=== PATIENT | female | born 1965 | race Caucasian/White ===

== ENCOUNTER 2016-12-02 17:09 | Inpatient (IN) | payer MEDICARE, OTHER ==
[2016-12-02 18:22] LABS: Appearance,Urine Clear (Clear); Bilirubin,Urine Negative (Negative); Glucose,Urine (UA) Negative (Negative); Ketones,Urine Negative (Negative); Leukocyte Esterase,Urine Negative (Negative); Nitrite,Urine Negative (Negative); Protein,Urine Negative (Negative); UA Billing (MACRO vs. MICRO) CHEM; Urobilinogen,Urine <2.0 mg/dL (<2.0)
[2016-12-02 18:57] LABS: Basophils % (A) 1 %; CH 32.7; CHCM 34.1; Eosinophils # (A) 0.1 k/uL (0-0.7); Eosinophils % (A) 2 %; HCT 39.1 % (34.0-46.0); HDW 2.56; HGB 13.1 gm/dL (11.4-16.0); Luc # (Auto) 0.12; Luc % (Auto) 2; Lymphocytes # (A) 3.4 k/uL (1.0-4.8); Lymphocytes % (A) 51 %; MCH 32.3 pg (25.0-35.0); MCHC 33.6 g/dL (31.0-37.0); MCV 96.3 fL (80.0-100.0); Mean Platelet Volume 7.8; Monocytes # (A) 0.4 k/uL (0-1.0); Monocytes % (A) 5 %; Neutrophils # (A) 2.7 k/uL (1.3-7.7); Neutrophils % (A) 40 %; RBC 4.07 m/uL (3.80-5.40); WBC 6.7 k/uL (3.8-10.6); WBC (Perox) 7.09
[2016-12-02 19:10] LABS: ALT 21 U/L (9-52); AST 18 U/L (14-36); Alkaline Phosphatase 79 U/L (38-126); Anion Gap 12 mmol/L; Blood Urea Nitrogen 14 mg/dL (7-17); Calcium 9.2 mg/dL (8.4-10.2); Carbon Dioxide 27 mmol/L (22-30); Chloride 102 mmol/L (98-107); Glucose 76 mg/dL (74-99); Magnesium 1.6 mg/dL (1.6-2.3); Non-African American GFR(MDRD) >60 (>60 ml/min/1.73 sqM); Phosphorous 3.9 mg/dL (2.5-4.5); Potassium 4.2 mmol/L (3.5-5.1); Sodium 141 mmol/L (137-145); Total Bilirubin 0.6 mg/dL (0.2-1.3); Total Protein 6.8 g/dL (6.3-8.2)
[2016-12-02 19:12] LABS: Manual Review Performed; Reactive Lymphocytes Present
[2016-12-02 19:25] LABS: INR 1.1 (<1.1); Partial Thromboplastin Time 23.4 sec (22.0-30.0); Prothrombin Time 10.7 sec (9.0-12.0)
--- NOTE | 2016-12-02 21:23 | ED ---
General Adult HPI - General Chief complaint: Extremity Problem,Nontraumatic Stated complaint: lower extremity numbness Time Seen by Provider: 12/02/16 17:47 Source: patient Mode of arrival: EMS Limitations: physical limitation - History of Present Illness Initial comments: This 51-year-old white female presents with a complaint of having some lower extremity numbness. This apparently initially started 2 days ago. She states that her legs feel very heavy, or painful, and she could not feel them well. She describes it as a numbness and tingling type of sensation. She has a complicated previous neurologic history. She initially was diagnosed with some Parkinson's disease by one neurologist. She then [facility] [place] and saw another neurologist in they apparently were weaning her off of her Parkinson's medication. They performed an MRI scan of her brain and cervical spine this past month. They did notice some myelomalacia and stenosis at C3 and C4. She is then followed up with Dr. Whitten from neurosurgery at [facility] and may need further surgery on her neck. She is scheduled for an MRI scan of her thoracic and lumbar spine. She denies any other complaints or modifying factors. His been no fevers or chills. There's been no recent infections. She normally is able to walk with a walker. She is currently residing at [facility]. - Related Data Home Medications Medication Instructions Recorded Confirmed Amitriptyline HCl [Elavil] 25 mg PO HS 06/08/14 12/02/16 Famotidine [Pepcid] 20 mg PO BID@0700,1700 06/08/14 12/02/16 Furosemide [Lasix] 20 mg PO QAM 06/08/14 12/02/16 Potassium Chloride [Klor-Con 10] 10 meq PO DAILY@1700 06/08/14 12/02/16 Dicyclomine [Bentyl] 20 mg PO BID@0800,1700 08/26/16 12/02/16 Ensure 1 can PO BID 08/26/16 12/02/16 Furosemide [Lasix] 10 mg PO DAILY@1400 08/26/16 12/02/16 Acetaminophen [Tylenol] 650 mg PO Q4H PRN 12/02/16 12/02/16 Amantadine HCl [Symmetrel] 100 mg PO TID 12/02/16 12/02/16 Aspirin 81 mg PO DAILY@1700 12/02/16 12/02/16 Bisacodyl 10 mg RECTAL DAILY PRN 12/02/16 12/02/16 Carbidopa-Levodopa 25-250 mg 0.5 tab PO BID@0700,1400 12/02/16 12/02/16 [Sinemet 25-250] Cholecalciferol [Vitamin D3] 1,000 unit PO DAILY@1700 12/02/16 12/02/16 Cyclobenzaprine [Flexeril] 10 mg PO TID 12/02/16 12/02/16 Divalproex Sodium [Depakote] 500 mg PO TID 12/02/16 12/02/16 HYDROcodone/APAP 5-325MG [[place] 1 tab PO Q4HR PRN 12/02/16 12/02/16 5-325] LORazepam [Ativan] 0.5 mg PO QID PRN 12/02/16 12/02/16 Loperamide HCl [Imodium A-D] 2 mg PO QID PRN MDD 4 TABS 12/02/16 12/02/16 Magnesium Hydroxide [Milk of 2,400 mg PO DAILY PRN 12/02/16 12/02/16 Magnesia] Na Phos,M-B/Na Phos,Di-Ba [Fleet 133 ml RECTAL ONCE PRN 12/02/16 12/02/16 Adult] Propranolol [Inderal] 20 mg PO DAILY 12/02/16 12/02/16 Zinc Oxide 20% Oint 1 applic TOPICAL BID 12/02/16 12/02/16 rOPINIRole HCL [Requip] 1 mg PO TID 12/02/16 12/02/16 Allergies Allergy/AdvReac Type Severity Reaction Status Date / Time cephalexin monohydrate Allergy Intermediate mouth Verified 12/02/16 17:33 [From Keflex] breaks out in sores Cephalosporins Allergy Intermediate mouth Verified 08/30/16 14:35 breaks out in sores codeine Allergy Intermediate Rash/Hives Verified 12/02/16 17:33 prednisone Allergy Intermediate Rash/Hives Verified 08/30/16 14:35 acetaminophen [From Tylenol] AdvReac Intermediate Rash/Hives Verified 08/30/16 14:35 Review of Systems ROS Statement: Those systems with pertinent positive or pertinent negative responses have been documented in the HPI. ROS Other: All systems not noted in ROS Statement are negative. 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 Past Anesthesia/Blood Transfusion Reactions: No Reported Reaction Past Psychological History: No Psychological Hx Reported Smoking Status: Former smoker Past Alcohol Use History: None Reported Past Drug Use History: None Reported - Past Family History Father Additional Family Medical History / Comment(s): pt adopted does not know of family hx General Exam - General Exam Comments Initial Comments: GENERAL: The patient is well nourished and well hydrated. VITAL SIGNS: Heart rate, blood pressure, respiratory rate reviewed as recorded in nurse's notes. EYES: Pupils are round and reactive. Extraocular movements are intact. No conjunctival / lid redness or swelling. ENT: No external evidence of injury, swelling, or ecchymosis. Airway is patent. Throat is clear. NECK: Nontender. No swelling or evidence of injury. No subcutaneous emphysema. Trachea is midline. No thyroid mass. HEART: Regular rate and rhythm. Good peripheral pulses. LUNGS/CHEST: Breath sounds clear and equal bilaterally. No rales, rhonchi, or wheezes. No ecchymosis, subcutaneous emphysema, or tenderness. ABDOMEN: Abdomen soft without tenderness. No palpable masses or organomegaly. No peritoneal signs. No abdominal wall swelling or ecchymosis. EXTREMITIES: No extremity tenderness. Normal muscle tone and function. No thoracolumbar tenderness. NEUROLOGIC: Sensation is decreased to her bilateral lower extremities but she is able to feel sharp sensation. This is resolved on recheck. Cranial nerve exam reveals face is symmetrical, tongue is midline, speech is clear. SKIN: No abrasions or ecchymosis is noted. No induration or masses noted. PSYCHIATRIC: Alert and oriented. Appropriate behavior and judgment. Limitations: physical limitation Course Vital Signs 12/02/16 12/02/16 12/02/16 17:24 19:35 21:23 Temperature 98 F 97.6 F Pulse Rate 72 71 70 Respiratory 18 16 18 Rate Blood Pressure 95/61 109/59 99/64 O2 Sat by Pulse 95 97 97 Oximetry Medical Decision Making - Medical Decision Making The patient is seen and examined. All diagnostics are reviewed. EKG shows a normal sinus rhythm at a rate of 69. There is no acute ST-T wave changes noted. The [place] interval is 142, QRS duration is 82, and the QTc interval is 465. The laboratory analysis was all essentially within normal limits. The patient does present with recent results of diagnostic studies. She had a MRI scan on 11/11/2016. This showed moderate advanced generalized cortical atrophic changes present on the computed tomography scan of the brain. There are numerous patchy areas of high T2 weighted signal which involve supratentorial white matter chair likely a manifestation of chronic small vessel ischemic change. There was no acute intracranial abnormalities. The patient also had a MRI of the cervical spine which showed degenerative changes involving the disks, facets, and alternate processes at multiple levels. Is moderately advanced central canal and bilateral neural foraminal stenosis at C3- C4. There is some subtle intramedullary signal change likely relating to myelomalacia at the C3-C4 level. The patient also had an EEG done on 2016 which does show an abnormal EEG G due to the presence of right frontal spike and slow waves. On recheck, she has had improvement in her lower extremity numbness. The exact cause of her symptomatology is not definitively determine but it is certainly felt as though she potentially could have symptoms related to MS. Other neurologic possibilities certainly are possible as well. Is felt as though she would benefit from admission and further neurologic evaluation. She is agreeable. Case is discussed with internal medicine and they are agreeable for admission. - Lab Data Result diagrams: 12/02/16 18:45 12/02/16 18:45 Lab Results 12/02/16 12/02/16 12/02/16 Range/Units 18:11 18:45 18:45 WBC 6.7 (3.8-10.6) k/uL RBC 4.07 (3.80-5.40) m/uL Hgb 13.1 (11.4-16.0) gm/dL Hct 39.1 (34.0-46.0) % MCV 96.3 (80.0-100.0) fL MCH 32.3 (25.0-35.0) pg MCHC 33.6 (31.0-37.0) g/dL RDW 14.0 (11.5-15.5) % Plt Count 173 (150-450) k/uL Neutrophils % 40 % Lymphocytes % 51 % Monocytes % 5 % Eosinophils % 2 % Basophils % 1 % Neutrophils # 2.7 (1.3-7.7) k/uL Lymphocytes # 3.4 (1.0-4.8) k/uL Monocytes # 0.4 (0-1.0) k/uL Eosinophils # 0.1 (0-0.7) k/uL Basophils # 0.0 (0-0.2) k/uL Manual Slide Review Performed Reactive Lymphocytes Present PT (9.0-12.0) sec INR (<1.1) APTT (22.0-30.0) sec Sodium 141 (137-145) mmol/L Potassium 4.2 (3.5-5.1) mmol/L Chloride 102 (98-107) mmol/L Carbon Dioxide 27 (22-30) mmol/L Anion Gap 12 mmol/L BUN 14 (7-17) mg/dL Creatinine 0.50 L (0.52-1.04) mg/dL Est GFR (MDRD) Af Amer >60 (>60 ml/min/1.73 sqM) Est GFR (MDRD) Non-Af >60 (>60 ml/min/1.73 sqM) Glucose 76 (74-99) mg/dL Calcium 9.2 (8.4-10.2) mg/dL Phosphorus 3.9 (2.5-4.5) mg/dL Magnesium 1.6 (1.6-2.3) mg/dL Total Bilirubin 0.6 (0.2-1.3) mg/dL AST 18 (14-36) U/L ALT 21 (9-52) U/L Alkaline Phosphatase 79 (38-126) U/L Total Protein 6.8 (6.3-8.2) g/dL Albumin 3.5 (3.5-5.0) g/dL TSH 1.900 (0.465-4.680) mIU/L Urine Color Yellow Urine Appearance Clear (Clear) Urine pH 6.0 (5.0-8.0) Ur Specific [place] 1.010 (1.001-1.035) Urine Protein Negative (Negative) Urine Glucose (UA) Negative (Negative) Urine Ketones Negative (Negative) Urine Blood Negative (Negative) Urine Nitrate Negative (Negative) Urine Bilirubin Negative (Negative) Urine Urobilinogen <2.0 (<2.0) mg/dL Ur Leukocyte Esterase Negative (Negative) 12/02/16 Range/Units 18:45 WBC (3.8-10.6) k/uL RBC (3.80-5.40) m/uL Hgb (11.4-16.0) gm/dL Hct (34.0-46.0) % MCV (80.0-100.0) fL MCH (25.0-35.0) pg MCHC (31.0-37.0) g/dL RDW (11.5-15.5) % Plt Count (150-450) k/uL Neutrophils % % Lymphocytes % % Monocytes % % Eosinophils % % Basophils % % Neutrophils # (1.3-7.7) k/uL Lymphocytes # (1.0-4.8) k/uL Monocytes # (0-1.0) k/uL Eosinophils # (0-0.7) k/uL Basophils # (0-0.2) k/uL Manual Slide Review Reactive Lymphocytes PT 10.7 (9.0-12.0) sec INR 1.1 (<1.1) APTT 23.4 (22.0-30.0) sec Sodium (137-145) mmol/L Potassium (3.5-5.1) mmol/L Chloride (98-107) mmol/L Carbon Dioxide (22-30) mmol/L Anion Gap mmol/L BUN (7-17) mg/dL Creatinine (0.52-1.04) mg/dL Est GFR (MDRD) Af Amer (>60 ml/min/1.73 sqM) Est GFR (MDRD) Non-Af (>60 ml/min/1.73 sqM) Glucose (74-99) mg/dL Calcium (8.4-10.2) mg/dL Phosphorus (2.5-4.5) mg/dL Magnesium (1.6-2.3) mg/dL Total Bilirubin (0.2-1.3) mg/dL AST (14-36) U/L ALT (9-52) U/L Alkaline Phosphatase (38-126) U/L Total Protein (6.3-8.2) g/dL Albumin (3.5-5.0) g/dL TSH (0.465-4.680) mIU/L Urine Color Urine Appearance (Clear) Urine pH (5.0-8.0) Ur Specific [place] (1.001-1.035) Urine Protein (Negative) Urine Glucose (UA) (Negative) Urine Ketones (Negative) Urine Blood (Negative) Urine Nitrate (Negative) Urine Bilirubin (Negative) Urine Urobilinogen (<2.0) mg/dL Ur Leukocyte Esterase (Negative) Disposition Clinical Impression: Lower extremity numbness, Leg pain, Myelomalacia of cervical cord, Seizure disorder, Degenerative arthritis of cervical spine, Chronic non-specific white matter lesions on MRI, Small vessel disease, cerebrovascular Disposition: ADMITTED IP TO THIS [facility] Condition: Fair Time of Disposition: 21:41 Decision Date: 12/02/16 Decision Time: 21:41
[2016-12-02] MEDS ORDERED: NALOXONE 0.4 MG/ML 1 ML VIAL IV PRN (22:06)
[2016-12-02] MEDS ORDERED: ONDANSETRON 4 MG/2 ML VIAL IVP PRN (22:06)
[2016-12-02] MEDS ORDERED: IBUPROFEN 400 MG TAB PO PRN (22:06)
[2016-12-02] MEDS ORDERED: LOPERAMIDE 2 MG CAP PO PRN (22:12)
[2016-12-02] MEDS ORDERED: LORazepam 0.5 MG TAB PO PRN (22:12)
[2016-12-02] MEDS ORDERED: NA PHOS,M-B/NA PHOS,DI-BA 133 ML ENEMA RECTAL PRN (22:12)
[2016-12-02] MEDS ORDERED: HYDROcodone/APAP 5-325MG 1 EACH TAB PO PRN (22:12)
[2016-12-02] MEDS ORDERED: MAGNESIUM HYDROXIDE 2,400 MG/10 ML CUP PO PRN (22:12)
[2016-12-02] MEDS ORDERED: BISACODYL 10 MG SUPP RECTAL PRN (22:12)
[2016-12-03 03:56] VITALS: BMI 29.6
[2016-12-03] MEDS ORDERED: FAMOTIDINE 20 MG TAB PO SCH (07:00)
[2016-12-03] MEDS: CARBIDOPA-LEVODOPA 25-250 MG 1 EACH TAB PO SCH ×2 (07:56→14:44)
[2016-12-03] MEDS ORDERED: DICYCLOMINE 20 MG TAB PO SCH (08:00)
[2016-12-03 08:28] VITALS: BP 109/52; PULSE 81; RESP 18; TEMP 98.1
[2016-12-03] MEDS ORDERED: CYCLOBENZAPRINE 10 MG TAB PO SCH (09:00)
[2016-12-03] MEDS ORDERED: ENOXAPARIN 40 MG/0.4 ML SYRINGE SQ SCH (09:00)
[2016-12-03] MEDS ORDERED: ZINC OXIDE 20% OINT 28.4 GM TUBE TOPICAL SCH (09:00)
[2016-12-03] MEDS ORDERED: PROPRANOLOL 20 MG TAB PO SCH (09:00)
[2016-12-03] MEDS ORDERED: DIVALPROEX 500 MG TABLET.DR PO SCH (09:00)
[2016-12-03] MEDS ORDERED: NON-FORMULARY DRUG (Ensure 1 CAN) PO SCH (09:00)
[2016-12-03] MEDS ORDERED: FUROSEMIDE 20 MG TAB PO SCH ×2 (09:00→14:00)
[2016-12-03] MEDS ORDERED: AMANTADINE HCL 100 MG CAP PO SCH (09:00)
--- NOTE | 2016-12-03 11:03 | DS ---
HISTORY AND PHYSICAL/DISCHARGE SUMMARY: DATE OF ADMISSION: 12/02/2016 DATE OF DISCHARGE: Patient is a 51-year-old female who came in with bilateral lower extremity numbness and patient does have significant spinal disease, was extensively evaluated by neurologist in [place] and later saw another neurologist and patient was on parkinsonian medications, which are being tapered down. Patient has some unintentional tremor at this point of time. Patient had myelomalacia and stenosis of C3 and C4 and is being followed by Dr. Ny ) in neurosurgery in [facility] and the patient had MRIs and thoracolumbar spine x-rays in the past. Patient is sent in here because of bilateral lower limb numbness and Neurology was consulted. I also consulted Dr. Cha. I do not believe nothing much can be done and patient will need to go back and follow with her neurologist and patient will be started on Decadron. After evaluation by Neurology and Dr. Love, patient will be discharged today back to subacute rehabilitation center. Patient is from [facility]. Home medications include: 1. Amitriptyline. 2. Famotidine. 3. Lasix 20 mg daily. 4. Potassium chloride. 5. Dicyclomine. 6. Ensure. 7. Amantadine. 8. Bisacodyl. 9. Carbidopa levodopa. 10. Cholecalciferol. 11. Cyclobenzaprine. 12. Divalproex. 13. Hydrocodone/acetaminophen. 14. Lorazepam. 15. Loperamide. 16. Magnesium oxide. 17. Propranolol. 18. Zinc oxide. 19. Ropinirole. ALLERGIES: Allergic to KEFLEX, CEPHALOSPORINS, CODEINE, PREDNISONE and ACETAMINOPHEN. REVIEW OF SYSTEMS: CONSTITUTIONAL: No fever, no malaise, no fatigue. HEENT: No recent visual problems or hearing problems. Denied any sore throat. CARDIOVASCULAR: No chest pain, orthopnea, PND, no palpitations, no syncope. PULMONARY: No shortness of breath, no cough, no hemoptysis. GASTROINTESTINAL: No diarrhea, no nausea, no vomiting, no abdominal pain. Normoactive bowel sounds. NEUROLOGICAL: As described in HPI. HEMATOLOGICAL: Denies any bleeding or petechiae. GENITOURINARY: Denies any burning micturition, frequency, or urgency. MUSCULOSKELETAL/RHEUMATOLOGICAL: Denies any joint pain, swelling, or any muscle pain. ENDOCRINE: Denies any polyuria or polydipsia. The rest of the 14 point review of systems is negative. PAST MEDICAL HISTORY: CVA/TIA, seizure disorder, Parkinson this history is questionable. Patient has myelomalacia of C2-C3 cervical spine. SOCIAL HISTORY: Former smoker. Quit smoking years ago. Denied any alcohol abuse or any drug abuse. FAMILY HISTORY: Patient was adopted and father's and mother's history is unknown. PHYSICAL EXAMINATION: Temperature 98.1, pulse of 81, respiratory rate of 18, blood pressure is 109/52, saturating at 97% on room air. GENERAL: Patient has tremors and unintentional shaking, this is not something new, although patient is alert and oriented x2. NEUROLOGICAL EXAMINATION: There is decreased sensation in bilateral lower extremities. I did not examine any rectal tone, although patient has incontinence which is not new. HEENT: Pupils are round and equally reacting to light. EOMI. No scleral icterus. No conjunctival pallor. Normocephalic, atraumatic. No pharyngeal erythema. No thyromegaly. CARDIOVASCULAR: S1 and S2 present. No murmurs, rubs, or gallops. PULMONARY: Chest is clear to auscultation, no wheezing or crackles. ABDOMEN: Soft, nontender, nondistended, normoactive bowel sounds. No palpable organomegaly. MUSCULOSKELETAL: No joint swelling or deformity. EXTREMITIES: No cyanosis, clubbing, or pedal edema. SKIN: No rashes. LABORATORY DATA: CBC, CMP essentially within normal limits. ASSESSMENT AND PLAN: 1. Bilateral lower extremity numbness, related to lumbar spine disease and thoracic spine disease. Patient is allergic to PREDNISONE apparently. Will try and use Decadron and see how she does today and patient will be discharged later in the day of discharge. Nothing much can be done and patient will need to follow up with the neurosurgeon [facility] and will get Neurology to evaluate the patient. 2. Seizure disorder. 3. Gastroesophageal reflux disease. 4. Depression. 5. Possibility of Parkinson's. 6. Myelomalacia of the cervical spine. For above-mentioned chronic medical problems, will go ahead and continue her home medications. Patient will be discharged today after evaluation by Dr. Cha and neurologist. Patient will resume her previous diet. Activity as tolerated.
[2016-12-03] MEDS ORDERED: DEXAMETHASONE 4 MG TAB PO SCH (12:00)
[2016-12-03] MEDS ORDERED: POTASSIUM CHLORIDE ER 10 MEQ TAB.ER.PRT PO SCH (17:00)
[2016-12-03] MEDS ORDERED: ASPIRIN 81 MG CHEW PO SCH (17:00)
[2016-12-03] MEDS ORDERED: CHOLECALCIFEROL 1,000 UNIT TAB PO SCH (17:00)
[2016-12-03] MEDS ORDERED: AMITRIPTYLINE HCL 25 MG TAB PO SCH (21:00)
== END 2016-12-03 15:05 | DRG 546 ==
LOC: EC 17:09 → 5MS5E 22:06
PROVIDERS: ADMIT Internal Medicine; ATTEND Internal Medicine
DX: M48.8X6 Other specified spondylopathies, lumbar region (principal); G95.89 Other specified diseases of spinal cord; G20 Parkinson's disease; M48.02 Spinal stenosis, cervical region; M50.11 Cervical disc disorder with radiculopathy, high cervical region; G40.909 Epilepsy, unspecified, not intractable, without status epilepticus; R94.01 Abnormal electroencephalogram [EEG]; M47.22 Other spondylosis with radiculopathy, cervical region; M48.8X4 Other specified spondylopathies, thoracic region; R20.0 Anesthesia of skin; K21.9 Gastro-esophageal reflux disease without esophagitis; M79.606 Pain in leg, unspecified; R01.1 Cardiac murmur, unspecified; R32 Unspecified urinary incontinence; I67.9 Cerebrovascular disease, unspecified; F32.9 Major depressive disorder, single episode, unspecified; Z87.891 Personal history of nicotine dependence; Z86.73 Personal history of transient ischemic attack (TIA), and cerebral infarction without residual deficits; Z79.82 Long term (current) use of aspirin; Z87.442 Personal history of urinary calculi; Z90.49 Acquired absence of other specified parts of digestive tract; Z90.710 Acquired absence of both cervix and uterus; Z88.6 Allergy status to analgesic agent; Z88.1 Allergy status to other antibiotic agents; Z88.5 Allergy status to narcotic agent; Z88.8 Allergy status to other drugs, medicaments and biological substances; Z79.891 Long term (current) use of opiate analgesic; Z79.899 Other long term (current) drug therapy; Z86.69 Personal history of other diseases of the nervous system and sense organs
CPT/HCPCS: 36415; 80053; 81003; 83735; 84100; 84443; 85025; 85610; 85730; 93005; 99285

== ENCOUNTER → 2016-12-09 | Outpatient (CLI) | payer MEDICARE, OTHER ==
--- NOTE | 2016-12-09 16:47 | MR ---
EXAMINATION TYPE: MR rain/ni wo/w con DATE OF EXAM: 12/09/2016 4:23 PM COMPARISON: NONE HISTORY: Patient has degenerative disc disease with stenosis of cervical spine. Myelomalacia CONTRAST: Performed utilizing 17 ml mL intravenous MultiHance gadolinium contrast. TECHNIQUE: Multiplanar, multiecho imaging on a 3.0 Sania magnet is performed through the thoracic spi ne. T6-T7: Right paracentral endplate changes are present with mild anterior thecal sac compression. No s darryn canal stenosis present. No cord contact is evident. T5-T6: There is a central disc herniation with mild anterior thecal sac compression. No AP spinal can al stenosis present. No cord contact is evident. T12-L1: There is a broad-based central disc herniation with mild anterior thecal sac compression. No AP spinal canal stenosis present. Neural foramen are patent. Spinal cord maintains normal signal through its visualized course. Vertebral body alignment is normal. Vertebral body heights are preserved. Disc heights are preserved. Disc hydration levels are preserved. No spinal canal stenosis is evident. IMPRESSIONS: 1. Endplate degenerative changes mid thoracic spine without spinal canal stenosis. 2. No myelomalacia is evident. EXAMINATION TYPE: MR rain/ni wo/w con DATE OF EXAM: 12/09/2016 4:23 PM COMPARISON: NONE HISTORY: Patient has degenerative disc disease with stenosis of cervical spine. Myelomalacia CONTRAST: 17 ml mL intravenous MultiHance. TECHNIQUE: Multiplanar, multisequence images of the lumbar spine were acquired. FINDINGS: L5-S1: Tiny central disc bulge is present with anterior thecal sac compression. No AP spinal canal st enosis or neural foraminal stenosis is present. L4-L5: No significant disc bulge or disc herniation. No spinal canal stenosis. No foraminal stenosi s. Mild facet hypertrophy is present with mild left foraminal narrowing.. There is loss of disc heig ht. L3-L4: No significant disc bulge or disc herniation. Degenerative disc changes are present through t his level. No spinal canal stenosis. No foraminal stenosis. . L2-L3: No significant disc bulge or disc herniation. No spinal canal stenosis. No foraminal stenosi s. . L1-L2: No significant disc bulge or disc herniation. No spinal canal stenosis. No foraminal stenosi s. . T12-L1: Minimal anterior thecal sac flattening from endplate spurring is present. There is narrowing of the disc height. No spinal canal stenosis is present. No spinal canal stenosis. No foraminal krystal nosis. . No abnormal enhancement. IMPRESSION: 1. Degenerative disc changes discussed above. Some mild endplate changes within the thoracic spine ar e present. Significant spinal canal stenosis is not identified.
== END | disposition home or self-care (01) ==
LOC: RADMRIMAIN 14:36
PROVIDERS: ATTEND Orthopaedic Surgery
DX: M51.36 Other intervertebral disc degeneration, lumbar region (principal); M50.30 Other cervical disc degeneration, unspecified cervical region; M48.02 Spinal stenosis, cervical region; G95.89 Other specified diseases of spinal cord
CPT/HCPCS: 72157; 72158; A9577

== ENCOUNTER → 2017-12-29 | Outpatient (CLI) | payer MEDICARE, OTHER ==
--- NOTE | 2017-12-29 09:35 | CT ---
EXAMINATION TYPE: CT angio chest DATE OF EXAM: 12/29/2017 COMPARISON: Report of CT thorax from 1998. No images available for comparison. HISTORY: History of PE. Shortness of breath. CT DLP: 384.5 mGycm. Automated Exposure Control for Dose Reduction was Utilized. CONTRAST: CTA scan of the thorax is performed with IV Contrast, patient injected with 80 mL of Isovue 370, pulm onary embolism protocol. MIP Images are created on CT scanner and reviewed. FINDINGS: LUNGS: There is right hemidiaphragm elevation and right basilar subsegmental linear atelectasis. Diff use geographic scattered areas of groundglass opacity are seen throughout the lungs without central o r peripheral predominance and without upper and lower lung zone predominance. The lungs are grossly c lear, there is no concerning parenchymal mass or nodule identified. There is no pleural effusion or pneumothorax seen. The tracheobronchial tree is patent. MEDIASTINUM: There is satisfactory enhancement of the pulmonary artery and its branches, there is no CT evidence for pulmonary embolism. No evidence of pulmonary arterial enlargement as the pulmonary ar meg measures 2.8 cm. Ascending thoracic aorta is also within normal limits measuring 3.3 cm. There a re no greater than 1 cm hilar or mediastinal lymph nodes. No cardiomegaly or pericardial effusion i s seen. OTHER: There is diffuse hypoattenuation of the hepatic parenchyma, most commonly relating to hepatic steatosis. Thyroid gland appears mildly enlarged without discrete nodule. A small hiatal hernia is in cidentally identified. Mild multilevel degenerative changes of the thoracic spine are noted. IMPRESSION: 1. No evidence of pulmonary embolism. 2. Right hemidiaphragm elevation with right basilar subsegmental atelectasis. Sniff test could be per formed if there is concern for diaphragmatic paralysis. 3. Diffuse geographic groundglass opacities throughout the lungs favored to represent multifocal atel ectasis and hypoventilation, however other etiologies such as pneumonitis and fluid overload or possi ble. 4. Findings most compatible with hepatic steatosis.
== END | disposition home or self-care (01) ==
LOC: RADCTMAIN 08:06
PROVIDERS: ATTEND Internal Medicine Sleep Medicine
DX: J98.11 Atelectasis (principal); R91.8 Other nonspecific abnormal finding of lung field; Z86.711 Personal history of pulmonary embolism
CPT/HCPCS: 71275; Q9967

== ENCOUNTER 2018-04-07 14:42 | Inpatient (IN) | payer MEDICARE, OTHER ==
[2018-04-07] MEDS ORDERED: SODIUM CHLORIDE 0.9% 1,000 ML IV ONE (15:02)
[2018-04-07 15:21] LABS: Glucose,Whole Blood 82 mg/dL (75-99)
[2018-04-07 15:24] LABS: Basophils % (A) 0 %; Eosinophils % (A) 1 %; HCT 43.5 % (34.0-46.0); HGB 14.6 gm/dL (11.4-16.0); Lymphocytes # (A) 3.7 k/uL (1.0-4.8); Lymphocytes % (A) 61 %; MCH 31.9 pg (25.0-35.0); MCHC 33.6 g/dL (31.0-37.0); Mean Platelet Volume 7.1; Monocytes # (A) 0.4 k/uL (0-1.0); Monocytes % (A) 6 %; Neutrophils # (A) 1.8 k/uL (1.3-7.7); Neutrophils % (A) 31 %; Platelet Count 166 k/uL (150-450); RBC 4.58 m/uL (3.80-5.40); RDW 14.9 % (11.5-15.5)
[2018-04-07 15:28] LABS: ALT 31 U/L (9-52); AST 53 U/L (14-36); Albumin 3.3 g/dL (3.5-5.0); Alkaline Phosphatase 69 U/L (38-126); Anion Gap 11 mmol/L; Blood Urea Nitrogen 7 mg/dL (7-17); Carbon Dioxide 28 mmol/L (22-30); Chloride 104 mmol/L (98-107); Glucose 78 mg/dL (74-99); Potassium 4.2 mmol/L (3.5-5.1); Sodium 143 mmol/L (137-145); Total Bilirubin 0.2 mg/dL (0.2-1.3); Total Protein 6.2 g/dL (6.3-8.2)
[2018-04-07 15:38] LABS: Creatine Kinase 56 U/L (30-135)
[2018-04-07 15:39] LABS: Partial Thromboplastin Time 30.4 sec (22.0-30.0); Prothrombin Time 52.5 sec (9.0-12.0)
[2018-04-07 15:41] LABS: INR 5.8 (<1.2)
[2018-04-07 15:42] LABS: Amphetamine Screen,Urine Not Detected (NotDetected); Barbiturate Screen,Urine Not Detected (NotDetected); Benzodiazepines Screen,Urine Detected (NotDetected); Cocaine Screen,Urine Not Detected (NotDetected); Methadone Screen, Urine Not Detected (NotDetected); Opiate Screen,Urine Detected (NotDetected); Oxycodone Screen, Urine Not Detected (NotDetected); Phencyclidine Screen,Urine Not Detected (NotDetected); Tricyclic Antidepressant,Urine Detected (NotDetected); Urn Cannabinoid Scrn Not Detected (NotDetected)
[2018-04-07 15:45] LABS: Polychromasia Present
[2018-04-07 15:49] LABS: Amorphous Sediment,Urine Occasional /hpf; Appearance,Urine Cloudy (Clear); Bacteria,Urine Many /hpf; Bilirubin,Urine Negative (Negative); Blood,Urine Large (Negative); Color,Urine Yellow; Glucose,Urine (UA) Negative (Negative); Hyaline Casts,Urine 41 /lpf (0-2); Ketones,Urine Trace (Negative); Leukocyte Esterase,Urine Large (Negative); Mucus,Urine Moderate /hpf; Nitrite,Urine Negative (Negative); PH, Urine 6.5 (5.0-8.0); Protein,Urine 1+ (Negative); RBC,Urine >182 /hpf (0-5); Specific Gravity,Urine 1.016 (1.001-1.035); WBC,Urine >182 /hpf (0-5)
[2018-04-07 15:51] LABS: Creatine Kinase MB 0.3 ng/mL (0.0-2.4); Troponin I <0.012 ng/mL (0.000-0.034)
--- NOTE | 2018-04-07 15:59 | ED ---
Altered Mental Status HPI - General Chief Complaint: Altered Mental Status Stated Complaint: Altered Mental Status Time Seen by Provider: 04/07/18 14:44 Source: EMS Mode of arrival: EMS Limitations: altered mental status, physical limitation - History of Present Illness Initial Comments: [age] years O female comes from local shelter with the confusion, they noticed that she had altered mental status, she does have a history of Parkinson 's. She herself denies any headaches no chest pain no shortness of breath no abdominal pain no frequency urgency dysuri. She has a history of firm CVA - Related Data Home Medications Medication Instructions Recorded Confirmed Dicyclomine [Bentyl] 20 mg PO Q6H PRN 08/26/16 04/07/18 Acetaminophen [Tylenol] 650 mg PO Q4H PRN 12/02/16 04/07/18 Bisacodyl 10 mg RECTAL DAILY PRN 12/02/16 04/07/18 Carbidopa-Levodopa 25-250 mg 0.5 tab PO TID 12/02/16 04/07/18 [Sinemet 25-250] Cyclobenzaprine [Flexeril] 10 mg PO BID PRN 12/02/16 04/07/18 HYDROcodone/APAP 5-325MG [[place] 1 tab PO Q4HR PRN 12/02/16 04/07/18 5-325] ALPRAZolam [Xanax] 0.25 mg PO TID PRN 04/07/18 04/07/18 Magnesium Hydroxide [Milk of 400 mg PO DAILY PRN 04/07/18 04/07/18 Magnesia] Menthol [Nice Cough Drops] 1 tab PO Q4H PRN 04/07/18 04/07/18 Na Phos,M-B/Na Phos,Di-Ba [Fleet 133 ml RECTAL ONCE PRN 04/07/18 04/07/18 Adult] Warfarin [Coumadin] 1 mg PO TUTHSA 04/07/18 04/07/18 Warfarin [Coumadin] 3 mg PO SUMOWEFR 04/07/18 04/07/18 diphenhydrAMINE [Benadryl] 25 mg PO HS PRN 04/07/18 04/07/18 Allergies Allergy/AdvReac Type Severity Reaction Status Date / Time cephalexin monohydrate Allergy Intermediate mouth Verified 04/07/18 15:18 [From Keflex] breaks out in sores Cephalosporins Allergy Intermediate mouth Verified 04/07/18 15:18 breaks out in sores codeine Allergy Intermediate Rash/Hives Verified 04/07/18 15:18 prednisone Allergy Intermediate Rash/Hives Verified 04/07/18 15:18 acetaminophen [From Tylenol] AdvReac Intermediate Rash/Hives Verified 04/07/18 15:18 Review of Systems ROS Statement: Those systems with pertinent positive or pertinent negative responses have been documented in the HPI. ROS Other: All systems not noted in ROS Statement are negative. 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 Past Anesthesia/Blood Transfusion Reactions: No Reported Reaction Past Psychological History: No Psychological Hx Reported Smoking Status: Former smoker Past Alcohol Use History: None Reported Past Drug Use History: None Reported - Past Family History Father Additional Family Medical History / Comment(s): pt adopted does not know of family hx General Exam - General Exam Comments Initial Comments: General: The patient is awake , she is moving her head looking towards the right arm this is her chronic position of the neck, GCS is 15 she is able to follow the commands Skin: Skin is warm and dry and no rashes or lesions are noted. Eye: Pupils are equal, round and reactive to light, extra-ocular movements are intact; there is normal conjunctiva bilaterally. Ears, nose, mouth and throat: There are moist mucous membranes and no oral lesions. Neck: The neck is supple, there is no tenderness . Cardiovascular: There is a regular rate and rhythm. No murmur, rub or gallop is appreciated. Respiratory: To auscultation bilateral, decreased breath sounds globally poor respiratory effort Gastrointestinal: Soft, non-distended, non-tender abdomen without masses or organomegaly noted. There is no rebound or guarding present. Bowel sounds are unremarkable. Back: There is no tenderness to palpation in the midline. There is no obvious deformity. Musculoskeletal: Normal ROM, no tenderness, There is no pedal edema. There is no calf tenderness or swelling. No cords were appreciated. Neurological: CN II-XII intact, Cranial nerves III through XII are intact. She is moving her upper or lower extremities appropriately Psychiatric: Cooperative, seems depressed and anxious Limitations: altered mental status, physical limitation Course Vital Signs 04/07/18 04/07/18 14:47 17:00 Temperature 97.9 F Pulse Rate 57 L 57 L Respiratory 18 18 Rate Blood Pressure 114/55 123/90 O2 Sat by Pulse 94 L 96 Oximetry EKG is a sinus bradycardia ventricular rate is 57 IN interval is 144 QRS duration is 86 QT/QTc is 442/4:30 degree of this EKG does not reveal any ST elevation or ST depression Further assessment revealed head CT normal INR is 5.8 to hold the Coumadin CBC is normal His metabolic panel is normal urinalysis confirms UTI and a chest x- ray confirms pneumonia she be treated with broad-spectrum antibiotic should be admitted to Dr. Gallagher's service Medical Decision Making - Lab Data Result diagrams: 04/07/18 14:52 04/07/18 14:52 Lab Results 04/07/18 04/07/18 04/07/18 Range/Units 14:52 14:52 14:52 WBC 6.0 (3.8-10.6) k/uL RBC 4.58 (3.80-5.40) m/uL Hgb 14.6 (11.4-16.0) gm/dL Hct 43.5 (34.0-46.0) % MCV 95.0 (80.0-100.0) fL MCH 31.9 (25.0-35.0) pg MCHC 33.6 (31.0-37.0) g/dL RDW 14.9 (11.5-15.5) % Plt Count 166 (150-450) k/uL Neutrophils % 31 % Lymphocytes % 61 % Monocytes % 6 % Eosinophils % 1 % Basophils % 0 % Neutrophils # 1.8 (1.3-7.7) k/uL Lymphocytes # 3.7 (1.0-4.8) k/uL Monocytes # 0.4 (0-1.0) k/uL Eosinophils # 0.0 (0-0.7) k/uL Basophils # 0.0 (0-0.2) k/uL Polychromasia Present PT (9.0-12.0) sec INR (<1.2) APTT (22.0-30.0) sec Sodium 143 (137-145) mmol/L Potassium 4.2 (3.5-5.1) mmol/L Chloride 104 (98-107) mmol/L Carbon Dioxide 28 (22-30) mmol/L Anion Gap 11 mmol/L BUN 7 (7-17) mg/dL Creatinine 0.60 (0.52-1.04) mg/dL Est GFR (CKD-EPI)AfAm >90 (>60 ml/min/1.73 sqM) Est GFR (CKD-EPI)NonAf >90 (>60 ml/min/1.73 sqM) Glucose 78 (74-99) mg/dL POC Glucose (mg/dL) (75-99) mg/dL POC Glu Service Center Supervisor ID Plasma Lactic Acid Tato (0.7-2.0) mmol/L Calcium 9.0 (8.4-10.2) mg/dL Total Bilirubin 0.2 (0.2-1.3) mg/dL AST 53 H (14-36) U/L ALT 31 (9-52) U/L Alkaline Phosphatase 69 (38-126) U/L Total Creatine Kinase 56 (30-135) U/L CK-MB (CK-2) 0.3 (0.0-2.4) ng/mL CK-MB (CK-2) Rel Index 0.5 Troponin I <0.012 (0.000-0.034) ng/mL Total Protein 6.2 L (6.3-8.2) g/dL Albumin 3.3 L (3.5-5.0) g/dL Urine Color Urine Appearance (Clear) Urine pH (5.0-8.0) Ur Specific [place] (1.001-1.035) Urine Protein (Negative) Urine Glucose (UA) (Negative) Urine Ketones (Negative) Urine Blood (Negative) Urine Nitrite (Negative) Urine Bilirubin (Negative) Urine Urobilinogen (<2.0) mg/dL Ur Leukocyte Esterase (Negative) Urine RBC (0-5) /hpf Urine WBC (0-5) /hpf Urine WBC Clumps (None) /hpf Amorphous Sediment (None) /hpf Urine Bacteria (None) /hpf Hyaline Casts (0-2) /lpf Urine Mucus (None) /hpf Urine Opiates Screen (NotDetected) Ur Oxycodone Screen (NotDetected) Urine Methadone Screen (NotDetected) Ur Propoxyphene Screen (NotDetected) Ur Barbiturates Screen (NotDetected) U Tricyclic Antidepress (NotDetected) Ur Phencyclidine Scrn (NotDetected) Ur Amphetamines Screen (NotDetected) U Methamphetamines Scrn (NotDetected) U Benzodiazepines Scrn (NotDetected) Urine Cocaine Screen (NotDetected) U Marijuana (THC) Screen (NotDetected) 04/07/18 04/07/18 04/07/18 Range/Units 14:52 14:52 14:52 WBC (3.8-10.6) k/uL RBC (3.80-5.40) m/uL Hgb (11.4-16.0) gm/dL Hct (34.0-46.0) % MCV (80.0-100.0) fL MCH (25.0-35.0) pg MCHC (31.0-37.0) g/dL RDW (11.5-15.5) % Plt Count (150-450) k/uL Neutrophils % % Lymphocytes % % Monocytes % % Eosinophils % % Basophils % % Neutrophils # (1.3-7.7) k/uL Lymphocytes # (1.0-4.8) k/uL Monocytes # (0-1.0) k/uL Eosinophils # (0-0.7) k/uL Basophils # (0-0.2) k/uL Polychromasia PT 52.5 H (9.0-12.0) sec INR 5.8 H* (<1.2) APTT 30.4 H (22.0-30.0) sec Sodium (137-145) mmol/L Potassium (3.5-5.1) mmol/L Chloride (98-107) mmol/L Carbon Dioxide (22-30) mmol/L Anion Gap mmol/L BUN (7-17) mg/dL Creatinine (0.52-1.04) mg/dL Est GFR (CKD-EPI)AfAm (>60 ml/min/1.73 sqM) Est GFR (CKD-EPI)NonAf (>60 ml/min/1.73 sqM) Glucose (74-99) mg/dL POC Glucose (mg/dL) (75-99) mg/dL POC Glu Service [facility] Supervisor ID Plasma Lactic Acid [place] 1.1 (0.7-2.0) mmol/L Calcium (8.4-10.2) mg/dL Total Bilirubin (0.2-1.3) mg/dL AST (14-36) U/L ALT (9-52) U/L Alkaline Phosphatase (38-126) U/L Total Creatine Kinase (30-135) U/L CK-MB (CK-2) (0.0-2.4) ng/mL CK-MB (CK-2) Rel Index Troponin I (0.000-0.034) ng/mL Total Protein (6.3-8.2) g/dL Albumin (3.5-5.0) g/dL Urine Color Urine Appearance (Clear) Urine pH (5.0-8.0) Ur Specific [place] (1.001-1.035) Urine Protein (Negative) Urine Glucose (UA) (Negative) Urine Ketones (Negative) Urine Blood (Negative) Urine Nitrite (Negative) Urine Bilirubin (Negative) Urine Urobilinogen (<2.0) mg/dL Ur Leukocyte Esterase (Negative) Urine RBC (0-5) /hpf Urine WBC (0-5) /hpf Urine WBC Clumps (None) /hpf Amorphous Sediment (None) /hpf Urine Bacteria (None) /hpf Hyaline Casts (0-2) /lpf Urine Mucus (None) /hpf Urine Opiates Screen Detected H (NotDetected) Ur Oxycodone Screen Not Detected (NotDetected) Urine Methadone Screen Not Detected (NotDetected) Ur Propoxyphene Screen Not Detected (NotDetected) Ur Barbiturates Screen Not Detected (NotDetected) U Tricyclic Antidepress Detected H (NotDetected) Ur Phencyclidine Scrn Not Detected (NotDetected) Ur Amphetamines Screen Not Detected (NotDetected) U Methamphetamines Scrn Not Detected (NotDetected) U Benzodiazepines Scrn Detected H (NotDetected) Urine Cocaine Screen Not Detected (NotDetected) U Marijuana (THC) Screen Not Detected (NotDetected) 04/07/18 04/07/18 Range/Units 15:16 15:19 WBC (3.8-10.6) k/uL RBC (3.80-5.40) m/uL Hgb (11.4-16.0) gm/dL Hct (34.0-46.0) % MCV (80.0-100.0) fL MCH (25.0-35.0) pg MCHC (31.0-37.0) g/dL RDW (11.5-15.5) % Plt Count (150-450) k/uL Neutrophils % % Lymphocytes % % Monocytes % % Eosinophils % % Basophils % % Neutrophils # (1.3-7.7) k/uL Lymphocytes # (1.0-4.8) k/uL Monocytes # (0-1.0) k/uL Eosinophils # (0-0.7) k/uL Basophils # (0-0.2) k/uL Polychromasia PT (9.0-12.0) sec INR (<1.2) APTT (22.0-30.0) sec Sodium (137-145) mmol/L Potassium (3.5-5.1) mmol/L Chloride (98-107) mmol/L Carbon Dioxide (22-30) mmol/L Anion Gap mmol/L BUN (7-17) mg/dL Creatinine (0.52-1.04) mg/dL Est GFR (CKD-EPI)AfAm (>60 ml/min/1.73 sqM) Est GFR (CKD-EPI)NonAf (>60 ml/min/1.73 sqM) Glucose (74-99) mg/dL POC Glucose (mg/dL) 82 (75-99) mg/dL POC Glu Service Center Supervisor ID [facility], Mel[place] Plasma Lactic Acid [place]ato (0.7-2.0) mmol/L Calcium (8.4-10.2) mg/dL Total Bilirubin (0.2-1.3) mg/dL AST (14-36) U/L ALT (9-52) U/L Alkaline Phosphatase (38-126) U/L Total Creatine Kinase (30-135) U/L CK-MB (CK-2) (0.0-2.4) ng/mL CK-MB (CK-2) Rel Index Troponin I (0.000-0.034) ng/mL Total Protein (6.3-8.2) g/dL Albumin (3.5-5.0) g/dL Urine Color Yellow Urine Appearance Cloudy H (Clear) Urine pH 6.5 (5.0-8.0) Ur Specific [place] 1.016 (1.001-1.035) Urine Protein 1+ H (Negative) Urine Glucose (UA) Negative (Negative) Urine Ketones Trace H (Negative) Urine Blood Large H (Negative) Urine Nitrite Negative (Negative) Urine Bilirubin Negative (Negative) Urine Urobilinogen 2.0 (<2.0) mg/dL Ur Leukocyte Esterase Large H (Negative) Urine RBC >182 H (0-5) /hpf Urine WBC >182 H (0-5) /hpf Urine WBC Clumps Many H (None) /hpf Amorphous Sediment Occasional H (None) /hpf Urine Bacteria Many H (None) /hpf Hyaline Casts 41 H (0-2) /lpf Urine Mucus Moderate H (None) /hpf Urine Opiates Screen (NotDetected) Ur Oxycodone Screen (NotDetected) Urine Methadone Screen (NotDetected) Ur Propoxyphene Screen (NotDetected) Ur Barbiturates Screen (NotDetected) U Tricyclic Antidepress (NotDetected) Ur Phencyclidine Scrn (NotDetected) Ur Amphetamines Screen (NotDetected) U Methamphetamines Scrn (NotDetected) U Benzodiazepines Scrn (NotDetected) Urine Cocaine Screen (NotDetected) U Marijuana (THC) Screen (NotDetected) Disposition Clinical Impression: Altered mental status, UTI (urinary tract infection), Elevated INR, Pneumonia Disposition: ADMITTED IP TO THIS [facility] Condition: Good Referrals: Kris Stanley DO [Primary Care Provider] - 1-2 days
--- NOTE | 2018-04-07 16:08 | CT ---
EXAMINATION TYPE: CT brain wo con DATE OF EXAM: 04/07/2018 COMPARISON: 08/26/2016 HISTORY: Altered mental status. CT DLP: [address] of the brain was performed. The ventricles, basal cisterns and sulci overlying the cerebral convexities demonstrate at least mode rate enlargement. There is no evidence for intracranial hemorrhage or sulcal effacement. There is decreased attenuation about the periventricular white matter and deep white matter of both c erebral hemispheres, compatible with chronic small vessel ischemia. Differential diagnosis does inclu de demyelination. No mass effects are seen.No midline shift. Osseous calvarium is intact. If symptoms persist consider MRI. IMPRESSION: 1. Age related atrophic and chronic small vessel ischemic change without acute intracranial process s een at this time.
[2018-04-07] MEDS ORDERED: LEVOFLOXACIN 750MG-D5W PMX 750 MG in DEXTROSE/WATER 1 150ML.BAG IVPB STA (16:10)
--- NOTE | 2018-04-07 16:21 | XR ---
EXAMINATION TYPE: XR chest 2V DATE OF EXAM: 04/07/2018 COMPARISON: 08/26/2016 HISTORY: Shortness of breath TECHNIQUE: Frontal and lateral views of the chest are obtained. FINDINGS: Scattered senescent parenchymal changes noted. Hyperinflation compatible with COPD. Patchy left perihilar and right basilar opacity may reflect underlying infiltrate and/or atelectasis. Follow-up until resolution recommended Heart size is stable. Mediastinal structures are stable and grossly unremarkable. No evidence for hilar prominence. Degenerative changes dorsal spine. IMPRESSION: 1. Patchy left perihilar and right basilar opacity may reflect underlying infiltrate and/or atelectas is. Follow-up until resolution recommended
[2018-04-07] MEDS ORDERED: ONDANSETRON 4 MG/2 ML VIAL IVP PRN (18:09)
[2018-04-07] MEDS ORDERED: NALOXONE 0.4 MG/ML 1 ML VIAL IV PRN (18:09)
[2018-04-07] MEDS ORDERED: HYDROcodone/APAP 5-325MG 1 EACH TAB PO PRN (18:13)
[2018-04-07] MEDS ORDERED: BISACODYL 10 MG SUPP RECTAL PRN (18:13)
[2018-04-07] MEDS ORDERED: MAGNESIUM HYDROXIDE 2,400 MG/10 ML CUP PO PRN (18:13)
[2018-04-07] MEDS ORDERED: NA PHOS,M-B/NA PHOS,DI-BA 133 ML ENEMA RECTAL PRN (18:13)
[2018-04-07] MEDS ORDERED: diphenhydrAMINE 25 MG CAP PO PRN (18:13)
[2018-04-07] MEDS ORDERED: DICYCLOMINE 20 MG TAB PO PRN (18:13)
[2018-04-07] MEDS ORDERED: ALPRAZolam 0.25 MG TAB PO PRN (18:13)
[2018-04-07] MEDS: CARBIDOPA-LEVODOPA 25-250 MG 1 EACH TAB PO SCH (21:39)
[2018-04-08] MEDS ORDERED: CYCLOBENZAPRINE 10 MG TAB ONE (00:51)
[2018-04-08 01:17] LABS: Glucose,Whole Blood 102 mg/dL (75-99)
[2018-04-08 06:23] LABS: Glucose,Whole Blood 83 mg/dL (75-99)
[2018-04-08 08:31] LABS: Prothrombin Time 45.5 sec (9.0-12.0)
[2018-04-08] MEDS: CARBIDOPA-LEVODOPA 25-250 MG 1 EACH TAB PO SCH ×3 (08:31→21:25)
[2018-04-08 08:36] LABS: HCT 41.6 % (34.0-46.0); HGB 13.7 gm/dL (11.4-16.0); MCH 32.1 pg (25.0-35.0); MCHC 32.8 g/dL (31.0-37.0); MCV 97.7 fL (80.0-100.0); Mean Platelet Volume 7.3; Platelet Count 177 k/uL (150-450); RBC 4.26 m/uL (3.80-5.40); RDW 14.7 % (11.5-15.5)
[2018-04-08 08:38] LABS: ALT 35 U/L (9-52); AST 39 U/L (14-36); Alkaline Phosphatase 61 U/L (38-126); Anion Gap 11 mmol/L; Blood Urea Nitrogen 7 mg/dL (7-17); Calcium 8.9 mg/dL (8.4-10.2); Carbon Dioxide 25 mmol/L (22-30); Chloride 107 mmol/L (98-107); Glucose 77 mg/dL (74-99); Potassium 3.9 mmol/L (3.5-5.1); Sodium 143 mmol/L (137-145); Total Bilirubin 0.3 mg/dL (0.2-1.3); Total Protein 5.8 g/dL (6.3-8.2)
[2018-04-08 09:20] LABS: Monocytes # (M) 0.37 k/uL (0-1.0); Neutrophils # (M) 1.33 k/uL (1.3-7.7); Neutrophils % (M) 25 %; Nucleated Red Blood Cells 1 /100 WBC (0-0); Total Cells Counted 100; Toxic Vacuolation Present; WBC 5.3 k/uL (3.8-10.6)
[2018-04-08 09:21] LABS: Polychromasia Present
[2018-04-08 12:34] LABS: Glucose,Whole Blood 96 mg/dL (75-99)
--- NOTE | 2018-04-08 14:53 | P.HPIM ---
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 Patient otherwise denied any chest pain or shortness of breath. No cough or sputum production denied any dysuria or hematuria. No fever or chills noted. No nausea vomiting or abdominal pain. Patient was sent to Hospital for further evaluation. Patient is currently bedridden at [facility]. CT head showed age-related atrophy and chronic small ischemic changes without acute intracranial process seen at this time. Chest x-ray showed patchy left perihilar and right basilar obesity may reflect underlying infiltrate/atelectasis follow-up until resolution was recommended INR 5.8 Urinalysis showed cloudy with large leukocyte esterase and WBC greater than 182 and RBC greater than 182 Review of Systems Constitutional: Patient denies any fever or chills . Generalized weakness Abdomen: Patient denied nausea vomiting and diarrhea and abdominal pain. Cardiovascular: Patient denies any chest pain or short of breath no palpitations. Respiratory: patient denied any cough is from production. No shortness of breath Neurologic: Patient denied any numbness or tingling headache. Confusion Musculoskeletal: Patient denies any complaints of joint swelling or deformity. Skin: Negative Psychiatric: Denied Endocrine: No heat or cold intolerance. No recent weight gain. Genitourinary: No dysuria or hematuria. 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 Past Anesthesia/Blood Transfusion Reactions: No Reported Reaction Past Psychological History: No Psychological Hx Reported Smoking Status: Former smoker Past Alcohol Use History: None Reported Past Drug Use History: None Reported - Past Family History Father Additional Family Medical History / Comment(s): pt adopted does not know of family hx Medications and Allergies Home Medications Medication Instructions Recorded Confirmed Type Dicyclomine [Bentyl] 20 mg PO Q6H PRN 08/26/16 04/07/18 History Acetaminophen [Tylenol] 650 mg PO Q4H PRN 12/02/16 04/07/18 History Bisacodyl 10 mg RECTAL DAILY PRN 12/02/16 04/07/18 History Carbidopa-Levodopa 25-250 mg 0.5 tab PO TID 12/02/16 04/07/18 History [Sinemet 25-250] Cyclobenzaprine [Flexeril] 10 mg PO BID PRN 12/02/16 04/07/18 History HYDROcodone/APAP 5-325MG [[place] 1 tab PO Q4HR PRN 12/02/16 04/07/18 History 5-325] ALPRAZolam [Xanax] 0.25 mg PO TID PRN 04/07/18 04/07/18 History Magnesium Hydroxide [Milk of 400 mg PO DAILY PRN 04/07/18 04/07/18 History Magnesia] Menthol [Nice Cough Drops] 1 tab PO Q4H PRN 04/07/18 04/07/18 History Na Phos,M-B/Na Phos,Di-Ba [Fleet 133 ml RECTAL ONCE PRN 04/07/18 04/07/18 History Adult] Warfarin [Coumadin] 1 mg PO TUTHSA 04/07/18 04/07/18 History Warfarin [Coumadin] 3 mg PO SUMOWEFR 04/07/18 04/07/18 History diphenhydrAMINE [Benadryl] 25 mg PO HS PRN 04/07/18 04/07/18 History Allergies Allergy/AdvReac Type Severity Reaction Status Date / Time cephalexin monohydrate Allergy Intermediate mouth Verified 04/07/18 15:18 [From Keflex] breaks out in sores Cephalosporins Allergy Intermediate mouth Verified 04/07/18 15:18 breaks out in sores codeine Allergy Intermediate Rash/Hives Verified 04/07/18 15:18 prednisone Allergy Intermediate Rash/Hives Verified 04/07/18 15:18 acetaminophen [From Tylenol] AdvReac Intermediate Rash/Hives Verified 04/07/18 15:18 Physical Exam Vitals: Vital Signs Temp Pulse Pulse Resp BP BP Pulse Ox 04/08/18 11:08 97.0 F L 04/08/18 08:50 16 04/08/18 06:30 97.3 F L 60 16 120/67 93 L 04/07/18 22:35 97.1 F L 57 L 16 130/71 92 L 04/07/18 20:30 58 L 04/07/18 20:00 97.0 F L 54 L 16 123/76 97 04/07/18 19:20 98.3 F 62 18 102/58 98 04/07/18 17:00 57 L 18 123/90 96 04/07/18 14:47 97.9 F 57 L 18 114/55 94 L Intake and Output 04/07/18 04/08/18 04/08/18 22:59 06:59 14:59 Other: Voiding Method Bedpan Incontinent # Voids 1 2 2 # Bowel Movements 0 PHYSICAL EXAMINATION: Patient is lying in the bed comfortably, no acute distress, awake alert and oriented 2.. Morbidly obesity. HEENT: Normocephalic. Neck is supple. Pupils reactive. Nostrils clear. Oral cavity is moist. Ears reveal no drainage. Neck reveals no JVD, carotid bruits, or thyromegaly. CHEST EXAMINATION: Trachea is central. Symmetrical expansion. Bibasilar diminished air entry. Lung daniel clear to auscultation and percussion. CARDIAC: Normal S1, S2 with no gallops. Systolic murmur ABDOMEN: Soft. Bowel sounds normal. No organomegaly. No abdominal bruits. Extremities: reveal no edema. No clubbing or cyanosis Neurologically awake, alert, oriented x2-3 . Patient is bedridden and right- sided weakness. Skin: No rash or skin lesions. Psychiatric: Coperative. Could not be assessed completely Musculoskeletal: No joint swelling or deformity. Normal range of motion. Results CBC & Chem 7: 04/08/18 08:13 04/08/18 08:13 Labs: Abnormal Lab Results - Last 24 Hours (Table) 04/07/18 04/07/18 04/07/18 Range/Units 14:52 14:52 14:52 Nucleated RBCs (0-0) /100 WBC PT 52.5 H (9.0-12.0) sec INR 5.8 H* (<1.2) APTT 30.4 H (22.0-30.0) sec POC Glucose (mg/dL) (75-99) mg/dL AST 53 H (14-36) U/L Total Protein 6.2 L (6.3-8.2) g/dL Albumin 3.3 L (3.5-5.0) g/dL Urine Appearance (Clear) Urine Protein (Negative) Urine Ketones (Negative) Urine Blood (Negative) Ur Leukocyte Esterase (Negative) Urine RBC (0-5) /hpf Urine WBC (0-5) /hpf Urine WBC Clumps (None) /hpf Amorphous Sediment (None) /hpf Urine Bacteria (None) /hpf Hyaline Casts (0-2) /lpf Urine Mucus (None) /hpf Urine Opiates Screen Detected H (NotDetected) U Tricyclic Antidepress Detected H (NotDetected) U Benzodiazepines Scrn Detected H (NotDetected) 04/07/18 04/08/18 04/08/18 Range/Units 15:16 00:22 08:13 Nucleated RBCs 1 H (0-0) /100 WBC PT (9.0-12.0) sec INR (<1.2) APTT (22.0-30.0) sec POC Glucose (mg/dL) 102 H (75-99) mg/dL AST (14-36) U/L Total Protein (6.3-8.2) g/dL Albumin (3.5-5.0) g/dL Urine Appearance Cloudy H (Clear) Urine Protein 1+ H (Negative) Urine Ketones Trace H (Negative) Urine Blood Large H (Negative) Ur Leukocyte Esterase Large H (Negative) Urine RBC >182 H (0-5) /hpf Urine WBC >182 H (0-5) /hpf Urine WBC Clumps Many H (None) /hpf Amorphous Sediment Occasional H (None) /hpf Urine Bacteria Many H (None) /hpf Hyaline Casts 41 H (0-2) /lpf Urine Mucus Moderate H (None) /hpf Urine Opiates Screen (NotDetected) U Tricyclic Antidepress (NotDetected) U Benzodiazepines Scrn (NotDetected) 04/08/18 04/08/18 Range/Units 08:13 08:13 Nucleated RBCs (0-0) /100 WBC PT 45.5 H (9.0-12.0) sec INR 5.0 H* (<1.2) APTT (22.0-30.0) sec POC Glucose (mg/dL) (75-99) mg/dL AST 39 H (14-36) U/L Total Protein 5.8 L (6.3-8.2) g/dL Albumin 3.0 L (3.5-5.0) g/dL Urine Appearance (Clear) Urine Protein (Negative) Urine Ketones (Negative) Urine Blood (Negative) Ur Leukocyte Esterase (Negative) Urine RBC (0-5) /hpf Urine WBC (0-5) /hpf Urine WBC Clumps (None) /hpf Amorphous Sediment (None) /hpf Urine Bacteria (None) /hpf Hyaline Casts (0-2) /lpf Urine Mucus (None) /hpf Urine Opiates Screen (NotDetected) U Tricyclic Antidepress (NotDetected) U Benzodiazepines Scrn (NotDetected) Microbiology - Last 24 Hours (Table) 04/07/18 15:16 Urine Culture - Preliminary Urine,Catheterized Thrombosis Risk Factor Assmnt - Choose All That Apply Any of the Below Risk Factors Present?: No Assessment and Plan Assessment: Altered mental status. Possible metabolic encephalopathy with infection Acute urinary tract infection Parkinson's disease History of CVA with right-sided weakness. On Coumadin for stroke prophylaxis Supratherapeutic INR level Seizure disorder Previous history of smoking Medical debility currently bedridden Plan: Patient was given IV fluids in the ER. Continue with antibiotics in the form of levofloxacin. Follow-up urine culture report. Continue to hold Coumadin until INR is between 2 and 3. Continue with home medications and follow closely. Pain management and further recommendations based on the clinical course. Prognosis is guarded. Time with Patient: Greater than 30
[2018-04-08] MEDS ORDERED: LEVOFLOXACIN 500MG-D5W PMX 500 MG in DEXTROSE/WATER 1 100ML.BAG IVPB SCH (16:00)
[2018-04-08] MEDS: LEVOFLOXACIN 500 MG TAB PO SCH (16:24)
[2018-04-08 17:23] LABS: Glucose,Whole Blood 109 mg/dL (75-99)
[2018-04-08] MEDS: DIVALPROEX 500 MG TABLET.DR PO SCH ×2 (18:06→21:25)
[2018-04-08] MEDS: CYCLOBENZAPRINE 10 MG TAB PO PRN (18:25)
[2018-04-08] MEDS ORDERED: LORazepam 2 MG/ML INJ IV ONE (18:40)
[2018-04-08] MEDS: ATORVASTATIN 40 MG TAB PO SCH (21:25)
[2018-04-08] MEDS: AMITRIPTYLINE HCL 25 MG TAB PO SCH (21:25)
[2018-04-08] MEDS: FAMOTIDINE 20 MG TAB PO SCH (21:25)
[2018-04-09 00:13] LABS: Glucose,Whole Blood 124 mg/dL (75-99)
[2018-04-09 05:58] LABS: Glucose,Whole Blood 143 mg/dL (75-99)
[2018-04-09] MEDS: PROPRANOLOL 20 MG TAB PO SCH (08:15)
[2018-04-09] MEDS: CARBIDOPA-LEVODOPA 25-250 MG 1 EACH TAB PO SCH ×2 (08:15→15:36)
[2018-04-09] MEDS: DIVALPROEX 500 MG TABLET.DR PO SCH ×3 (08:15→21:07)
[2018-04-09] MEDS: FAMOTIDINE 20 MG TAB PO SCH ×2 (08:15→21:07)
--- NOTE | 2018-04-09 08:45 | XR ---
EXAMINATION TYPE: XR chest 1V DATE OF EXAM: 04/09/2018 CLINICAL HISTORY: Difficulty breathing progress study. TECHNIQUE: Single AP portable frontal view of the chest is obtained. COMPARISON: Chest x-ray from 2 days earlier. CTA chest December 29, 2017. FINDINGS: There is persistent elevated right hemidiaphragm with right basilar opacity. Left lung rem ains clear. No new suspicious focal airspace opacity, pleural effusion, or pneumothorax is seen bilat erally. Cardiac silhouette size is stable and upper limits of normal. Osseous structures are intact. IMPRESSION: Overall stable findings, elevated right hemidiaphragm with right basilar scarring and/o r atelectasis. No new suspicious focal infiltrate is seen.
[2018-04-09 11:47] LABS: INR 2.6 (<1.2); Prothrombin Time 23.2 sec (9.0-12.0)
[2018-04-09] MEDS: HYDROcodone/APAP 5-325MG 1 EACH TAB PO PRN ×2 (12:21→18:32)
[2018-04-09] MEDS: CYCLOBENZAPRINE 10 MG TAB PO PRN ×2 (12:34→18:48)
[2018-04-09] MEDS: LEVOFLOXACIN 500 MG TAB PO SCH (16:40)
--- NOTE | 2018-04-09 19:39 | P.CNNES ---
History of Present Illness Consult date: 04/09/18 History of Present Illness: The patient is a 53-year-old woman with Parkinson's disease who resides in a [facility]. She was [facility] from [facility] with altered mental status. Neurology is requested to see the patient regarding dyskinesias. The patient states that she's had the dyskinesias for quite some time. She was diagnosed with Parkinson's in 2011. She is not a good historian but according to the record she's been on Sinemet 25/250 half a tablet 3 times a day. The patient also has a history of seizures but has not had a seizure in 20 years. She is on Depakote. 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 Past Anesthesia/Blood Transfusion Reactions: No Reported Reaction Past Psychological History: No Psychological Hx Reported Smoking Status: Former smoker Past Alcohol Use History: None Reported Past Drug Use History: None Reported - Past Family History Father Additional Family Medical History / Comment(s): pt adopted does not know of family hx Medications and Allergies Home Medications Medication Instructions Recorded Confirmed Type Dicyclomine [Bentyl] 20 mg PO Q6H PRN 08/26/16 04/07/18 History Acetaminophen [Tylenol] 650 mg PO Q4H PRN 12/02/16 04/07/18 History Bisacodyl 10 mg RECTAL DAILY PRN 12/02/16 04/07/18 History Carbidopa-Levodopa 25-250 mg 0.5 tab PO TID 12/02/16 04/07/18 History [Sinemet 25-250] Cyclobenzaprine [Flexeril] 10 mg PO BID PRN 12/02/16 04/07/18 History HYDROcodone/APAP 5-325MG [[place] 1 tab PO Q4HR PRN 12/02/16 04/07/18 History 5-325] ALPRAZolam [Xanax] 0.25 mg PO TID PRN 04/07/18 04/07/18 History Magnesium Hydroxide [Milk of 400 mg PO DAILY PRN 04/07/18 04/07/18 History Magnesia] Menthol [Nice Cough Drops] 1 tab PO Q4H PRN 04/07/18 04/07/18 History Na Phos,M-B/Na Phos,Di-Ba [Fleet 133 ml RECTAL ONCE PRN 04/07/18 04/07/18 History Adult] Warfarin [Coumadin] 1 mg PO TUTHSA 04/07/18 04/07/18 History Warfarin [Coumadin] 3 mg PO SUMOWEFR 04/07/18 04/07/18 History diphenhydrAMINE [Benadryl] 25 mg PO HS PRN 04/07/18 04/07/18 History Amitriptyline HCl [Elavil] 25 mg PO HS 04/08/18 04/08/18 History Atorvastatin [Lipitor] 40 mg PO HS 04/08/18 04/08/18 History Divalproex [Depakote] 500 mg PO TID 04/08/18 04/08/18 History Famotidine [Pepcid] 20 mg PO BID 04/08/18 04/08/18 History Propranolol [Inderal] 20 mg PO DAILY 04/08/18 04/08/18 History Allergies Allergy/AdvReac Type Severity Reaction Status Date / Time cephalexin monohydrate Allergy Intermediate mouth Verified 04/07/18 15:18 [From Keflex] breaks out in sores Cephalosporins Allergy Intermediate mouth Verified 04/07/18 15:18 breaks out in sores codeine Allergy Intermediate Rash/Hives Verified 04/07/18 15:18 prednisone Allergy Intermediate Rash/Hives Verified 04/07/18 15:18 acetaminophen [From Tylenol] AdvReac Intermediate Rash/Hives Verified 04/07/18 15:18 Physical Examination - Vital Signs Vital Signs: Vital Signs Temp Pulse Resp BP Pulse Ox 04/09/18 16:00 16 04/09/18 15:00 98.2 F 58 L 16 106/58 90 L 04/09/18 08:00 16 04/09/18 05:45 97.5 F L 65 16 123/78 95 04/08/18 23:00 97.5 F L 67 16 116/71 93 L Intake and Output 04/09/18 04/09/18 04/09/18 06:59 14:59 22:59 Other: Voiding Method Bedpan Bedpan Bedpan Incontinent Incontinent Incontinent # Voids 2 2 - Constitutional General appearance: disheveled - EENT EENT: PERRL - Respiratory Respiratory: lungs clear - Cardiovascular Cardiovascular: regular rate - Neurologic Mental status: The patient was able to answer simple questions. She was oriented to the year. She thought the month was December. She is able to tell where she was. She knew she lived in a [facility]ci but could not name it. Asymptomatic Cranial nerves II through XII: Pupils were 3 mm equal and reactive. There is no obvious facial asymmetry. Motor examination: She was able to move all 4 extremities. Results - Laboratory Findings CBC and BMP: 04/08/18 08:13 04/08/18 08:13 Abnormal Lab Findings: Abnormal Labs 04/07/18 04/07/18 04/07/18 14:52 14:52 14:52 Nucleated RBCs PT 52.5 H INR 5.8 H* APTT 30.4 H POC Glucose (mg/dL) AST 53 H Total Protein 6.2 L Albumin 3.3 L Urine Appearance Urine Protein Urine Ketones Urine Blood Ur Leukocyte Esterase Urine RBC Urine WBC Urine WBC Clumps Amorphous Sediment Urine Bacteria Hyaline Casts Urine Mucus Urine Opiates Screen Detected H U Tricyclic Antidepress Detected H U Benzodiazepines Scrn Detected H 04/07/18 04/08/18 04/08/18 15:16 00:22 08:13 Nucleated RBCs 1 H PT INR APTT POC Glucose (mg/dL) 102 H AST Total Protein Albumin Urine Appearance Cloudy H Urine Protein 1+ H Urine Ketones Trace H Urine Blood Large H Ur Leukocyte Esterase Large H Urine RBC >182 H Urine WBC >182 H Urine WBC Clumps Many H Amorphous Sediment Occasional H Urine Bacteria Many H Hyaline Casts 41 H Urine Mucus Moderate H Urine Opiates Screen U Tricyclic Antidepress U Benzodiazepines Scrn 04/08/18 04/08/18 04/08/18 08:13 08:13 17:16 Nucleated RBCs PT 45.5 H INR 5.0 H* APTT POC Glucose (mg/dL) 109 H AST 39 H Total Protein 5.8 L Albumin 3.0 L Urine Appearance Urine Protein Urine Ketones Urine Blood Ur Leukocyte Esterase Urine RBC Urine WBC Urine WBC Clumps Amorphous Sediment Urine Bacteria Hyaline Casts Urine Mucus Urine Opiates Screen U Tricyclic Antidepress U Benzodiazepines Scrn 04/09/18 04/09/18 04/09/18 00:10 05:46 11:18 Nucleated RBCs PT 23.2 H INR 2.6 H APTT POC Glucose (mg/dL) 124 H 143 H AST Total Protein Albumin Urine Appearance Urine Protein Urine Ketones Urine Blood Ur Leukocyte Esterase Urine RBC Urine WBC Urine WBC Clumps Amorphous Sediment Urine Bacteria Hyaline Casts Urine Mucus Urine Opiates Screen U Tricyclic Antidepress U Benzodiazepines Scrn Assessment and Plan (1) Altered mental status Current Visit: Yes Status: Acute SNOMED Code(s): 847290414 (2) UTI (urinary tract infection) Current Visit: Yes Status: Acute SNOMED Code(s): 40465399 (3) Dyskinesia due to Parkinson's disease Current Visit: Yes Status: Acute Code(s): G24.9 - DYSTONIA, UNSPECIFIED; G20 - PARKINSON'S DISEASE SNOMED Code(s): 32985077 (4) Dyskinesia, subacute, due to drugs Current Visit: Yes Status: Acute SNOMED Code(s): 791848160 Plan: The patient is a 53-year-old woman with Parkinson's disease. She is having a some change in mental status and was admitted with UTI. Apparently her dyskinesias have been more pronounced recently. Recommend tapering dose of Sinemet area to patient had a CT of the brain which did not show any acute findings.
[2018-04-09] MEDS: ATORVASTATIN 40 MG TAB PO SCH (21:07)
[2018-04-09] MEDS: AMITRIPTYLINE HCL 25 MG TAB PO SCH (21:07)
--- NOTE | 2018-04-09 23:02 | P.PN ---
Subjective Progress Note Date: 04/09/18 Principal diagnosis: Altered mental status and acute urinary tract infection Patient is a 53-year-old female with a known history of Parkinson's disease, CVA in 2011 with right-sided weakness and seizure disorder was sent to Hospital from intermediate with complaints of confusion and altered mental status. Patient otherwise denied any chest pain or shortness of breath. No cough or sputum production denied any dysuria or hematuria. No fever or chills noted. No nausea vomiting or abdominal pain. Patient was sent to Hospital for further evaluation. Patient is currently bedridden at intermediate. CT head showed age-related atrophy and chronic small ischemic changes without acute intracranial process seen at this time. Chest x-ray showed patchy left perihilar and right basilar obesity may reflect underlying infiltrate/atelectasis follow-up until resolution was recommended INR 5.8 Urinalysis showed cloudy with large leukocyte esterase and WBC greater than 182 and RBC greater than 182 04/09/2018 Patient does have dyskinetic chronic movements last night which is resolved now. Patient is being treated with antibiotics and urine culture showed gram- negative bacilli. Neurology recommended gradual taper of Sinemet. Otherwise no fever no chills. Denied any complaints of chest pain or short episode. No nausea vomiting or abdominal pain. Tolerating oral diet Chest x-ray showed stable findings. No infiltrate noted. Current medications reviewed and. Objective - Vital Signs Vital signs: Vital Signs Temp 98.2 F 04/09/18 15:00 Pulse 58 L 04/09/18 15:00 Resp 16 04/09/18 16:00 BP 106/58 04/09/18 15:00 Pulse Ox 90 L 04/09/18 15:00 Intake & Output 04/09/18 04/09/18 04/10/18 06:59 18:59 06:59 Other: Voiding Method Bedpan Bedpan Incontinent Incontinent # Voids 2 2 - Exam PHYSICAL EXAMINATION: Patient is lying in the bed comfortably, no acute distress, awake alert and oriented 2.. Morbidly obesity. HEENT: Normocephalic. Neck is supple. Pupils reactive. Nostrils clear. Oral cavity is moist. Ears reveal no drainage. Neck reveals no JVD, carotid bruits, or thyromegaly. CHEST EXAMINATION: Trachea is central. Symmetrical expansion. Bibasilar diminished air entry. Lung daniel clear to auscultation and percussion. CARDIAC: Normal S1, S2 with no gallops. Systolic murmur ABDOMEN: Soft. Bowel sounds normal. No organomegaly. No abdominal bruits. Extremities: reveal no edema. No clubbing or cyanosis Neurologically awake, alert, oriented x2-3 . Patient is bedridden and right- sided weakness. Skin: No rash or skin lesions. Psychiatric: Coperative. Could not be assessed completely Musculoskeletal: No joint swelling or deformity. Normal range of motion. - Labs CBC & Chem 7: 04/08/18 08:13 04/08/18 08:13 Labs: Abnormal Lab Results - Last 24 Hours (Table) 04/09/18 04/09/18 04/09/18 Range/Units 00:10 05:46 11:18 PT 23.2 H (9.0-12.0) sec INR 2.6 H (<1.2) POC Glucose (mg/dL) 124 H 143 H (75-99) mg/dL Microbiology - Last 24 Hours (Table) 04/07/18 15:16 Urine Culture - Final Urine,Catheterized Proteus mirabilis 04/07/18 14:52 Blood Culture - Preliminary Blood No Growth after 48 hours Assessment and Plan Assessment: Altered mental status. Possible metabolic encephalopathy with infection Acute urinary tract infection. Gram-negative bacilli. Final culture report pending. Parkinson's disease History of CVA with right-sided weakness. On Coumadin for stroke prophylaxis Supratherapeutic INR level Seizure disorder Previous history of smoking Medical debility currently bedridden Plan: Patient was given IV fluids in the ER. Continue with antibiotics in the form of levofloxacin. Follow-up urine culture report. Continue to hold Coumadin until INR is between 2 and 3. Coumadin can be started back today. Neurology is following. Continue with home medications and follow closely. Pain management and further recommendations based on the clinical course. Prognosis is guarded. Time with Patient: Greater than 30
[2018-04-10 08:17] VITALS: BP 118/66; PULSE 67; RESP 18; TEMP 96.7
[2018-04-10] MEDS: DIVALPROEX 500 MG TABLET.DR PO SCH (09:54)
[2018-04-10] MEDS: PROPRANOLOL 20 MG TAB PO SCH (09:55)
[2018-04-10] MEDS: FAMOTIDINE 20 MG TAB PO SCH (09:55)
[2018-04-10] MEDS ORDERED: CARBIDOPA-LEVODOPA 25-100 MG 1 EACH TAB PO SCH ×2 (12:30)
[2018-04-10] MEDS ORDERED: SULFAMETHOX-TMP 800-160MG 1 EACH TAB PO SCH (13:00)
--- NOTE | 2018-04-10 23:29 | P.DS ---
Providers Date of admission: 04/07/18 18:10 Expected date of discharge: 04/10/18 Attending physician: Evens Galeano Consults: 04/09/18 12:49 Consult Physician Routine Consulting Provider: Gaby Pulliam Consult Reason/Comments: increased tremors and involuntary movements Do you want consulting provider notified?: Yes Primary care physician: [facility] Course: Discharge diagnosis Altered mental status. Possible metabolic encephalopathy with infection Acute urinary tract infection. Gram-negative bacilli. Final culture report pending. Parkinson's disease History of CVA with right-sided weakness. On Coumadin for stroke prophylaxis Supratherapeutic INR level Seizure disorder Previous history of smoking Medical debility currently bedridden Hospital course Patient is a 53-year-old female with a known history of Parkinson's disease, CVA in 2011 with right-sided weakness and seizure disorder was [facility] to [facility] from [facility] with complaints of confusion and altered mental status. Patient otherwise denied any chest pain or shortness of breath. No cough or sputum production denied any dysuria or hematuria. No fever or chills noted. No nausea vomiting or abdominal pain. Patient was sent to Hospital for further evaluation. Patient is currently bedridden at [facility]. CT head showed age-related atrophy and chronic small ischemic changes without acute intracranial process seen at this time. Chest x-ray showed patchy left perihilar and right basilar obesity may reflect underlying infiltrate/atelectasis follow-up until resolution was recommended INR 5.8 Urinalysis showed cloudy with large leukocyte esterase and WBC greater than 182 and RBC greater than 182 04/09/2018 Patient does have dyskinetic chronic movements last night which is resolved now. Patient is being treated with antibiotics and urine culture showed gram- negative bacilli. Neurology recommended gradual taper of Sinemet. Otherwise no fever no chills. Denied any complaints of chest pain or short episode. No nausea vomiting or abdominal pain. Tolerating oral diet Chest x-ray showed stable findings. No infiltrate noted. 04/10/2018 Patient is awake and oriented. Sinemet dose decreased as per neurology. Otherwise urine culture showed Proteus species and patient will be discharged [facility] on Bactrim. Patient did improve clinically. No other acute overnight issues. Plan: Patient was given IV fluids in the ER. Continue with antibiotics in the form of levofloxacin. Urine culture showed Proteus species. Susceptible to Bactrim.. Continued to hold Coumadin until INR is between 2 and 3. Coumadin can be started back on 712. Neurology has seen the patient. Recommended to gradually tapered down Sinemet.. Continued with home medications. Patient did improve clinically and is tolerating oral diet. Awake alert oriented 3 now. Patient is stable to be discharged back to extended care facility. Discharge physical examination was done and vitals reviewed. Vital Signs - 24 hr 04/10/ 07:00 Temperature 96.7 F L Pulse Rate [ 67 Pulse Oximetery ] Respiratory 18 Rate Blood Pressure 118/66 [Right Arm] O2 Sat by Pulse 93 L Oximetry Total time taken greater than 35 minutes including 18 minutes for counseling and coordination of care. Patient Condition at Discharge: Good Plan - Discharge Summary Discharge Rx Participant: No New Discharge Prescriptions: New Carbidopa-Levodopa 25-100 mg [Sinemet 25-100 mg] 0.5 tab PO 1230,1730 #30 tab Sulfamethox-Tmp 800-160Mg [Bactrim DS 800-160 mg] 1 each PO BID 5 Days #10 tab Continue Dicyclomine [Bentyl] 20 mg PO Q6H PRN PRN Reason: Gi Upset HYDROcodone/APAP 5-325MG [[place] 5-325] 1 tab PO Q4HR PRN PRN Reason: Pain Bisacodyl 10 mg RECTAL DAILY PRN PRN Reason: Constipation Acetaminophen [Tylenol] 650 mg PO Q4H PRN PRN Reason: Fever And/ Or Pain Cyclobenzaprine [Flexeril] 10 mg PO BID PRN PRN Reason: MUSCLE SPASMS ALPRAZolam [Xanax] 0.25 mg PO TID PRN PRN Reason: Anxiety diphenhydrAMINE [Benadryl] 25 mg PO HS PRN PRN Reason: ALLERGIES Magnesium Hydroxide [Milk of Magnesia] 400 mg PO DAILY PRN PRN Reason: Constipation Menthol [Nice Cough Drops] 1 tab PO Q4H PRN PRN Reason: Sore Throat Na Phos,M-B/Na Phos,Di-Ba [Fleet Adult] 133 ml RECTAL ONCE PRN PRN Reason: Constipation Warfarin [Coumadin] 1 mg PO TUTHSA Warfarin [Coumadin] 3 mg PO SUMOWEFR Divalproex [Depakote] 500 mg PO TID Atorvastatin [Lipitor] 40 mg PO HS Propranolol [Inderal] 20 mg PO DAILY Famotidine [Pepcid] 20 mg PO BID Amitriptyline HCl [Elavil] 25 mg PO HS Discontinued Carbidopa-Levodopa 25-250 mg [Sinemet 25-250] 0.5 tab PO TID Discharge Medication List Dicyclomine [Bentyl] 20 mg PO Q6H PRN 08/26/16 [History] Acetaminophen [Tylenol] 650 mg PO Q4H PRN 12/02/16 [History] Bisacodyl 10 mg RECTAL DAILY PRN 12/02/16 [History] Cyclobenzaprine [Flexeril] 10 mg PO BID PRN 12/02/16 [History] HYDROcodone/APAP 5-325MG [[place] 5-325] 1 tab PO Q4HR PRN 12/02/16 [History] ALPRAZolam [Xanax] 0.25 mg PO TID PRN 04/07/18 [History] Magnesium Hydroxide [Milk of Magnesia] 400 mg PO DAILY PRN 04/07/18 [History] Menthol [Nice Cough Drops] 1 tab PO Q4H PRN 04/07/18 [History] Na Phos,M-B/Na Phos,Di-Ba [Fleet Adult] 133 ml RECTAL ONCE PRN 04/07/18 [History ] Warfarin [Coumadin] 1 mg PO TUTHSA 04/07/18 [History] Warfarin [Coumadin] 3 mg PO SUMOWEFR 04/07/18 [History] diphenhydrAMINE [Benadryl] 25 mg PO HS PRN 04/07/18 [History] Amitriptyline HCl [Elavil] 25 mg PO HS 04/08/18 [History] Atorvastatin [Lipitor] 40 mg PO HS 04/08/18 [History] Divalproex [Depakote] 500 mg PO TID 04/08/18 [History] Famotidine [Pepcid] 20 mg PO BID 04/08/18 [History] Propranolol [Inderal] 20 mg PO DAILY 04/08/18 [History] Carbidopa-Levodopa 25-100 mg [Sinemet 25-100 mg] 0.5 tab PO 1230,1730 #30 tab [Rx] Sulfamethox-Tmp 800-160Mg [Bactrim DS 800-160 mg] 1 each PO BID 5 Days #10 tab 04/10/18 [Rx] Follow up Appointment(s)/Referral(s): Kris Stanley DO [Primary Care Provider] - 1-2 days Discharge Disposition: TRANSFER TO SNF/ECF
== END 2018-04-10 14:40 | DRG 689 ==
LOC: EC 14:42 → 4MS4W 18:10
PROVIDERS: ADMIT Family Medicine; ATTEND Family Medicine
DX: N39.0 Urinary tract infection, site not specified (principal); G93.41 Metabolic encephalopathy; I69.351 Hemiplegia and hemiparesis following cerebral infarction affecting right dominant side; J98.11 Atelectasis; B96.4 Proteus (mirabilis) (morganii) as the cause of diseases classified elsewhere; G20 Parkinson's disease; G24.9 Dystonia, unspecified; G40.909 Epilepsy, unspecified, not intractable, without status epilepticus; R79.1 Abnormal coagulation profile; Z74.01 Bed confinement status; Z79.01 Long term (current) use of anticoagulants; Z87.442 Personal history of urinary calculi; Z87.891 Personal history of nicotine dependence; Z90.710 Acquired absence of both cervix and uterus; F41.9 Anxiety disorder, unspecified; Z79.899 Other long term (current) drug therapy; G24.01 Drug induced subacute dyskinesia; T50.905A Adverse effect of unspecified drugs, medicaments and biological substances, initial encounter; R01.1 Cardiac murmur, unspecified; Z88.6 Allergy status to analgesic agent; Z88.1 Allergy status to other antibiotic agents; Z88.5 Allergy status to narcotic agent; Z88.8 Allergy status to other drugs, medicaments and biological substances
CPT/HCPCS: 36415; 70450; 71045; 71046; 80053; 80164; 80306; 81001; 82550; 82553; 83605; 84484; 85025; 85610; 85730; 87040; 87077; 87086; 87186; 96361; 96365; 96366; 99285

== ENCOUNTER 2018-04-14 13:33 | Inpatient (IN) | payer MEDICARE, OTHER ==
[2018-04-14] MEDS ORDERED: SODIUM CHLORIDE 0.9% 500 ML IV STA (13:45)
--- NOTE | 2018-04-14 13:54 | ED ---
General Adult HPI - General Chief complaint: Recheck/Abnormal Lab/Rx Stated complaint: Abn Labs Time Seen by Provider: 04/14/18 13:43 Source: patient, EMS, RN notes reviewed, old records reviewed Mode of arrival: ambulatory Limitations: altered mental status - History of Present Illness Initial comments: This is a 53-year-old female the ER for evaluation. This patient's today for evaluation regards to altered mental state, UTI with feel outpatient treatment and abnormal lab tests. Patient's poor strain history is obtained from patient' s chart - Related Data Home Medications Medication Instructions Recorded Confirmed Dicyclomine [Bentyl] 20 mg PO Q6H PRN 08/26/16 04/14/18 Acetaminophen [Tylenol] 650 mg PO Q4H PRN 12/02/16 04/14/18 Bisacodyl 10 mg RECTAL DAILY PRN 12/02/16 04/14/18 Cyclobenzaprine [Flexeril] 10 mg PO BID PRN 12/02/16 04/14/18 HYDROcodone/APAP 5-325MG [[place] 1 tab PO Q4HR PRN 12/02/16 04/14/18 5-325] ALPRAZolam [Xanax] 0.25 mg PO TID@0800,1400,2000 04/07/18 04/14/18 Magnesium Hydroxide [Milk of 400 mg PO DAILY PRN 04/07/18 04/14/18 Magnesia] Na Phos,M-B/Na Phos,Di-Ba [Fleet 133 ml RECTAL ONCE PRN 04/07/18 04/14/18 Adult] Warfarin [Coumadin] 1 mg PO TUTHSA@1700 04/07/18 04/14/18 Warfarin [Coumadin] 3 mg PO SUMOWEFR@1700 04/07/18 04/14/18 diphenhydrAMINE [Benadryl] 25 mg PO HS PRN 04/07/18 04/14/18 Amitriptyline HCl [Elavil] 25 mg PO HS 04/08/18 04/14/18 Atorvastatin [Lipitor] 40 mg PO HS 04/08/18 04/14/18 Divalproex [Depakote] 500 mg PO TID@0800,1400,2100 04/08/18 04/14/18 Famotidine [Pepcid] 20 mg PO BID@0700,1700 04/08/18 04/14/18 Propranolol [Inderal] 20 mg PO DAILY 04/08/18 04/14/18 Benzocaine/Menthol Lozeng [Cepacol 1 tab MUCOUS MEM Q4HR PRN 04/14/18 04/14/18 lozenge] Carbidopa-Levodopa 25-100 mg 0.5 tab PO BID@1230,1730 04/14/18 04/14/18 [Sinemet 25-100 mg] Sulfamethox-Tmp 800-160Mg [Bactrim 1 tab PO BID@0700,1700 04/14/18 04/14/18 DS 800-160 mg] Allergies Allergy/AdvReac Type Severity Reaction Status Date / Time cephalexin monohydrate Allergy Intermediate mouth Verified 04/14/18 14:14 [From Keflex] breaks out in sores Cephalosporins Allergy Intermediate mouth Verified 04/14/18 14:14 breaks out in sores codeine Allergy Intermediate Rash/Hives Verified 04/14/18 14:14 prednisone Allergy Intermediate Rash/Hives Verified 04/14/18 14:14 acetaminophen [From Tylenol] AdvReac Intermediate Rash/Hives Verified 04/14/18 14:14 Review of Systems ROS Statement: Those systems with pertinent positive or pertinent negative responses have been documented in the HPI. ROS Other: All systems not noted in ROS Statement are negative. 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 Past Anesthesia/Blood Transfusion Reactions: No Reported Reaction Past Psychological History: No Psychological Hx Reported Smoking Status: Former smoker Past Alcohol Use History: None Reported Past Drug Use History: None Reported - Past Family History Father Additional Family Medical History / Comment(s): pt adopted does not know of family hx General Exam Limitations: altered mental status General appearance: alert, in no apparent distress Head exam: Present: atraumatic, normocephalic, normal inspection Eye exam: Present: normal appearance, PERRL, EOMI. Absent: scleral icterus, conjunctival injection, periorbital swelling ENT exam: Present: normal exam, mucous membranes moist Neck exam: Present: normal inspection. Absent: tenderness, meningismus, lymphadenopathy Respiratory exam: Present: normal lung sounds bilaterally. Absent: respiratory distress, wheezes, rales, rhonchi, stridor Cardiovascular Exam: Present: regular rate, normal rhythm, normal heart sounds. Absent: systolic murmur, diastolic murmur, rubs, gallop, clicks GI/Abdominal exam: Present: soft, normal bowel sounds. Absent: distended, tenderness, guarding, rebound, rigid Extremities exam: Present: normal inspection, full ROM, normal capillary refill. Absent: tenderness, pedal edema, joint swelling, calf tenderness Back exam: Present: normal inspection Neurological exam: Present: alert, oriented X3, CN II-XII intact Psychiatric exam: Present: normal affect, normal mood Skin exam: Present: warm, dry, intact, normal color. Absent: rash Course Vital Signs 04/14/18 13:35 Temperature 97.5 F L Pulse Rate 59 L Respiratory 18 Rate Blood Pressure 123/70 O2 Sat by Pulse 100 Oximetry - Reevaluation(s) Reevaluation #1: 04/14/18 15:53 Medical records thoroughly reviewed Medical Decision Making - Medical Decision Making 53 female the ER altered mental state, positive significantly elevated INR. She 'll be given vitamin K for elevated INR no acute bleeding currently. Patient has significant UTI with be treated with IV antibiotics - Lab Data Result diagrams: 04/14/18 14:30 04/14/18 14:30 Lab Results 04/14/18 04/14/18 04/14/18 Range/Units 14:30 14:30 14:30 WBC 6.0 (3.8-10.6) k/uL RBC 5.12 (3.80-5.40) m/uL Hgb 16.3 H (11.4-16.0) gm/dL Hct 48.9 H (34.0-46.0) % MCV 95.6 (80.0-100.0) fL MCH 31.9 (25.0-35.0) pg MCHC 33.3 (31.0-37.0) g/dL RDW 15.0 (11.5-15.5) % Plt Count 158 (150-450) k/uL Neutrophils % 48 % Lymphocytes % 39 % Monocytes % 10 % Eosinophils % 1 % Basophils % 0 % Neutrophils # 2.9 (1.3-7.7) k/uL Lymphocytes # 2.4 (1.0-4.8) k/uL Monocytes # 0.6 (0-1.0) k/uL Eosinophils # 0.0 (0-0.7) k/uL Basophils # 0.0 (0-0.2) k/uL PT 112.5 H (9.0-12.0) sec INR >10.0 H* (<1.2) APTT 39.5 H (22.0-30.0) sec Sodium 139 (137-145) mmol/L Potassium 4.2 (3.5-5.1) mmol/L Chloride 104 (98-107) mmol/L Carbon Dioxide 28 (22-30) mmol/L Anion Gap 7 mmol/L BUN 11 (7-17) mg/dL Creatinine 0.96 (0.52-1.04) mg/dL Est GFR (CKD-EPI)AfAm 77 (>60 ml/min/1.73 sqM) Est GFR (CKD-EPI)NonAf 67 (>60 ml/min/1.73 sqM) Glucose 99 (74-99) mg/dL Calcium 9.7 (8.4-10.2) mg/dL Phosphorus 3.4 (2.5-4.5) mg/dL Total Bilirubin 0.3 (0.2-1.3) mg/dL AST 56 H (14-36) U/L ALT 54 H (9-52) U/L Alkaline Phosphatase 81 (38-126) U/L Total Protein 7.1 (6.3-8.2) g/dL Albumin 3.8 (3.5-5.0) g/dL Disposition Clinical Impression: UTI (urinary tract infection), Parkinson disease, Altered mental status, Coagulopathy Disposition: ADMITTED IP TO THIS HOSP Condition: Fair Is patient prescribed a controlled substance at d/c from ED?: No Referrals: Kris Stanley DO [Primary Care Provider] - 1-2 days
[2018-04-14 14:49] LABS: Basophils % (A) 0 %; Eosinophils % (A) 1 %; HCT 48.9 % (34.0-46.0); HGB 16.3 gm/dL (11.4-16.0); Lymphocytes # (A) 2.4 k/uL (1.0-4.8); Lymphocytes % (A) 39 %; MCH 31.9 pg (25.0-35.0); MCHC 33.3 g/dL (31.0-37.0); MCV 95.6 fL (80.0-100.0); Mean Platelet Volume 7.2; Monocytes # (A) 0.6 k/uL (0-1.0); Monocytes % (A) 10 %; Neutrophils # (A) 2.9 k/uL (1.3-7.7); Neutrophils % (A) 48 %; Platelet Count 158 k/uL (150-450); RBC 5.12 m/uL (3.80-5.40)
[2018-04-14 15:00] LABS: Partial Thromboplastin Time 39.5 sec (22.0-30.0); Prothrombin Time 112.5 sec (9.0-12.0)
[2018-04-14 15:09] LABS: Albumin 3.8 g/dL (3.5-5.0); Calcium 9.7 mg/dL (8.4-10.2); Phosphorus 3.4 mg/dL (2.5-4.5); Potassium 4.2 mmol/L (3.5-5.1); Total Bilirubin 0.3 mg/dL (0.2-1.3); Total Protein 7.1 g/dL (6.3-8.2)
[2018-04-14 15:17] LABS: INR >10.0 (<1.2)
[2018-04-14] MEDS ORDERED: SODIUM CHLORIDE 0.9% 1,000 ML IV ONE (15:48)
[2018-04-14] MEDS ORDERED: AMPICILLIN-SULBACTAM 3 GM in SODIUM CHLORIDE 0.9% 100 ML IVPB STA (15:48)
[2018-04-14] MEDS ORDERED: PHYTONADIONE ORAL 5 MG/5 ML ORAL.SYRG PO STA (15:52)
[2018-04-14] MEDS ORDERED: NA PHOS,M-B/NA PHOS,DI-BA 133 ML ENEMA RECTAL PRN (17:51)
[2018-04-14] MEDS ORDERED: MAGNESIUM HYDROXIDE 2,400 MG/10 ML CUP PO PRN (17:51)
[2018-04-14] MEDS ORDERED: DICYCLOMINE 20 MG TAB PO PRN (17:51)
[2018-04-14] MEDS ORDERED: BISACODYL 10 MG SUPP RECTAL PRN (17:51)
[2018-04-14] MEDS ORDERED: BENZOCAINE/MENTHOL LOZENG 1 EACH LOZENGE MUCOUS MEM PRN (17:51)
[2018-04-14] MEDS ORDERED: CARBIDOPA-LEVODOPA 25-100 MG 1 EACH TAB PO SCH (17:52)
[2018-04-14] MEDS ORDERED: SODIUM CHLORIDE 0.9% 1,000 ML with MVI, ADULT NO.4 WITH VIT K 10 ML, THIAMINE 100 MG, F... IV ONE ×4 (17:54)
--- NOTE | 2018-04-14 18:26 | HP ---
HISTORY AND PHYSICAL DATE OF SERVICE: 04/14/2018 CHIEF COMPLAINTS: Abnormal labs, elevated PT and confusion, UTI. HISTORY OF PRESENT ILLNESS: This 53-year-old woman with a past medical history of multiple medical problems, including seizure disorder, CVA, Parkinson's, being followed by Dr. Stanley in the outpatient setting, was noted to have a change in mental status and elevated PT/INR. Patient is being treated for UTI. Apparently the patient is currently confused, unable to give coherent history. Most history is taken in my discussion with the staff and review of the charts at this time. PAST MEDICAL HISTORY: History of CVA, TIA, seizure disorder, Parkinson's, cholecystectomy. MEDICATIONS PRIOR TO ADMISSION: Include home medications are: 1. Benadryl 25 mg q.h.s. p.r.n. 2. Coumadin 3 mg Friday, Friday, Friday, Friday and 1 mg Friday, , Friday. 3. Bactrim DS 1 p.o. b.i.d. 4. Inderal 20 mg p.o. daily. 5. Fleet enema. 6. Milk of magnesia 40 mg p.o. daily p.r.n. 7. [place] 5 mg q.4h p.r.n. 8. Pepcid 20 mg p.o. b.i.d. 9. Depakote 500 mg p.o. t.i.d. 10.Bentyl 20 mg every 6 hours p.r.n. 11.Flexeril 10 mg p.o. b.i.d. p.r.n. 12.Sinemet 20/100 mg p.o. b.i.d. 13.Bisacodyl 10 mg daily p.r.n. 14.Depakote 1 tablets q.4h p.r.n. 15.Lipitor 40 mg q.h.s. 16.Elavil 25 mg q.h.s. 17.Tylenol 650 q.4h p.r.n. 18.Xanax 0.25 t.i.d. p.r.n. ALLERGIES: CEPHALEXIN, CEPHALOSPORINS, CODEINE, PREDNISONE, TYLENOL. FAMILY HISTORY: Patient is adopted. SOCIAL HISTORY, REVIEW OF SYSTEMS: Could not be taken because of the change in mental status. Previous smoking per chart. PHYSICAL EXAM: Patient is conscious, confused. Pulse is 59, blood pressure 123/79, respirations 18, temperature 97.5, pulse ox 100% on room air. HEENT: Conjunctivae normal. Oral mucosa moist. NECK: No jugular venous distention. No carotid bruits. No lymph node enlargement. CARDIOVASCULAR: S1, S2 muffled. RESPIRATORY: Breath sounds diminished in the bases. A few scattered rhonchi. No crackles. ABDOMEN: Soft, nontender. LEGS: No edema. No swelling. NERVOUS SYSTEM: Higher functions as mentioned earlier. Diffuse weakness. LYMPHATIC: No lymphadenopathy in neck or axillae. SKIN: No ulcer, rash or bleeding. LABS: WBC 6, hemoglobin 16.3, INR more than 10. AST 56, ALT is 54. Cultures are not available. ASSESSMENT: 1. Change in mental status, possible urinary tract infection with sepsis. 2. Coumadin coagulopathy. 3. Seizure disorder. 4. History of cerebrovascular accident, transient ischemic attack. 5. History of Parkinson's. 6. History of cardiac murmur. 7. History of cerebrovascular accident, right-sided hemiplegia. 8. Cholecystectomy. 9. History of nephrolithiasis. 10.Remote history of nicotine dependence. RECOMMENDATIONS AND DISCUSSION: In this 53-year-old woman who presented with multiple complex medical issues, we will monitor the patient closely, continue the current medical management, continue symptomatic treatment. We will start her on Unasyn, obtain the cultures. Hold Coumadin. Vitamin K p.o. has been given. Repeat PT, INR. Resume the rest of the medications. Guarded prognosis because of multiple complex medical issues. Further recommendations to follow. A copy of the dictation will be forwarded to Dr. Stanley, who is the primary physician. MMODL / IJN: [id number] /
--- NOTE | 2018-04-14 18:35 | XR ---
EXAMINATION TYPE: XR chest 1V portable DATE OF EXAM: 04/14/2018 COMPARISON: 04/09/2018 HISTORY: Altered mental status TECHNIQUE: Single frontal view of the chest is obtained. FINDINGS: There is elevated right diaphragm with linear density at the right lung base. There is coa rsening of interstitial pulmonary markings. Heart size is normal. Mediastinum is normal. The bony tho rax appears intact. IMPRESSION: There is right basilar atelectasis that is increased compared to last exam. No heart dariel lure. Minimal subsegmental atelectasis at the left lung base.
--- NOTE | 2018-04-14 19:07 | CT ---
EXAMINATION TYPE: CT brain wo con DATE OF EXAM: 04/14/2018 COMPARISON: 04/07/2018 HISTORY: Altered mental status CT DLP: 1023.2 mGycm Automated exposure control for dose reduction was used. FINDINGS: There is patchy hypodensity in the periventricular white matter. There is mild cerebral cortical atro phy. There is no midline shift. There is some enlargement of the ventricles. There is no evidence for obstructive hydrocephalus. Calvarium is intact. IMPRESSION: CEREBRAL ATROPHY AND CHRONIC SMALL VESSEL ISCHEMIA. MILD HYDROCEPHALUS. NO CHANGE COMPARED TO [facility] M.
--- NOTE | 2018-04-14 20:35 | P.CNNES ---
History of Present Illness Consult date: 04/14/18 History of Present Illness: The patient is a 53-year-old woman who arrives to the emergency room with change in mental status and UTI. [facility] and was recently hospitalized on April 07 with altered mental status and UTI. The patient is unable to give a history. History is obtained from the chart. The patient also has a history of seizure disorder and is on Depakote.And of the brain which showed atrophy. This is unchanged compared to previous admission. The patient is also been admitted with elevated PT and INR and Coumadin has been held. Review of Systems ROS unobtainable: due to mental status Past Medical History Past Medical History: CVA/TIA, Pneumonia, Seizure Disorder Additional Past Medical History / Comment(s): Parkinson's, heart murmur, CVA 2012 right sided, previously chart 04/07/18Pt stated she has not had a seizure in 20 years, at time of this admit unable to verify with pt.uti's, rls,per [facility] paperwork, hx asthma, chronic pain, musclw spasms/spastic movements History of Any Multi-Drug Resistant Organisms: None Reported Past Surgical History: Cholecystectomy, Hysterectomy, Orthopedic Surgery Additional Past Surgical History / Comment(s): kidney stone removal, torn ligament repair on right ankle, eye surgery when she was little. Past Anesthesia/Blood Transfusion Reactions: No Reported Reaction Smoking Status: Former smoker - Past Family History Father Additional Family Medical History / Comment(s): pt adopted does not know of family hx Medications and Allergies Home Medications Medication Instructions Recorded Confirmed Type Dicyclomine [Bentyl] 20 mg PO Q6H PRN 08/26/16 04/14/18 History Acetaminophen [Tylenol] 650 mg PO Q4H PRN 12/02/16 04/14/18 History Bisacodyl 10 mg RECTAL DAILY PRN 12/02/16 04/14/18 History Cyclobenzaprine [Flexeril] 10 mg PO BID PRN 12/02/16 04/14/18 History HYDROcodone/APAP 5-325MG [[place] 1 tab PO Q4HR PRN 12/02/16 04/14/18 History 5-325] ALPRAZolam [Xanax] 0.25 mg PO TID@0800,1400,199904/07/18 04/14/18 History Magnesium Hydroxide [Milk of 400 mg PO DAILY PRN 04/07/18 04/14/18 History Magnesia] Na Phos,M-B/Na Phos,Di-Ba [Fleet 133 ml RECTAL ONCE PRN 04/07/18 04/14/18 History Adult] Warfarin [Coumadin] 1 mg PO TUTHSA@1700 04/07/18 04/14/18 History Warfarin [Coumadin] 3 mg PO SUMOWEFR@1700 04/07/18 04/14/18 History diphenhydrAMINE [Benadryl] 25 mg PO HS PRN 04/07/18 04/14/18 History Amitriptyline HCl [Elavil] 25 mg PO HS 04/08/18 04/14/18 History Atorvastatin [Lipitor] 40 mg PO HS 04/08/18 04/14/18 History Divalproex [Depakote] 500 mg PO TID@0800,1400,2100 04/08/18 04/14/18 History Famotidine [Pepcid] 20 mg PO BID@0700,1700 04/08/18 04/14/18 History Propranolol [Inderal] 20 mg PO DAILY 04/08/18 04/14/18 History Benzocaine/Menthol Lozeng [Cepacol 1 tab MUCOUS MEM Q4HR PRN 04/14/18 04/14/18 History lozenge] Carbidopa-Levodopa 25-100 mg 0.5 tab PO BID@1230,1730 04/14/18 04/14/18 History [Sinemet 25-100 mg] Sulfamethox-Tmp 800-160Mg [Bactrim 1 tab PO BID@0700,1700 04/14/18 04/14/18 History DS 800-160 mg] Allergies Allergy/AdvReac Type Severity Reaction Status Date / Time cephalexin monohydrate Allergy Intermediate mouth Verified 04/14/18 14:14 [From Keflex] breaks out in sores Cephalosporins Allergy Intermediate mouth Verified 04/14/18 14:14 breaks out in sores codeine Allergy Intermediate Rash/Hives Verified 04/14/18 14:14 prednisone Allergy Intermediate Rash/Hives Verified 04/14/18 14:14 acetaminophen [From Tylenol] AdvReac Intermediate Rash/Hives Verified 04/14/18 14:14 Physical Examination - Vital Signs Vital Signs: Vital Signs Temp Pulse Pulse Resp BP BP Pulse Ox 04/14/18 19:02 96.3 F L 51 L 18 132/76 93 L 04/14/18 18:29 97.6 F 55 L 18 126/58 97 04/14/18 16:05 55 L 18 136/73 95 04/14/18 13:35 97.5 F L 59 L 18 123/70 100 Intake and Output 04/14/18 04/14/18 04/14/18 06:59 14:59 22:59 Other: Weight 90.718 kg - Constitutional General appearance: obese - EENT EENT: PERRL, hearing intact, vision intact - Respiratory Respiratory: lungs clear - Cardiovascular Cardiovascular: regular rate - Neurologic Mental status: The patient is awake. She is able to give her name. She is able to say that she is at [facility]. Her voice is hypophonic. She does have masklike face ease. Cranial nerve examination: face symmetric Speech examination: other (Hypophonic) Detailed motor examination: other (The patient has cogwheel rigidity in both upper extremities. She is unable to cooperate for motor examination) Results - Laboratory Findings CBC and BMP: 04/14/18 14:30 04/14/18 14:30 Abnormal Lab Findings: Abnormal Labs 04/14/18 04/14/18 04/14/18 14:30 14:30 14:30 Hgb 16.3 H Hct 48.9 H PT 112.5 H INR >10.0 H* APTT 39.5 H AST 56 H ALT 54 H Assessment and Plan (1) Altered mental status Current Visit: Yes Status: Acute SNOMED Code(s): 204295335 (2) Parkinson disease Current Visit: Yes Status: Chronic SNOMED Code(s): 19622167 (3) History of seizures Current Visit: Yes Status: Chronic Code(s): Z87.898 - PERSONAL HISTORY OF OTHER SPECIFIED CONDITIONS SNOMED Code(s): 987970231 (4) UTI (urinary tract infection) Current Visit: Yes Status: Acute SNOMED Code(s): 37630275 Plan: The patient is a 53-year-old woman with multiple medical problems including seizure disorder and Parkinson's disease as well as previous stroke. She presents to the hospital with altered mental status and UTI. Her altered mental status may be related to her underlying sepsis as well as her Parkinson' s disease. The patient has quite a bit of bradykinesia and rigidity. Recommend increasing Sinemet dose slightly and watch for any dyskinesias. Also we'll check Depakote level. We will obtain an EEG.
[2018-04-14] MEDS: DIVALPROEX 500 MG TABLET.DR PO SCH (22:47)
[2018-04-14] MEDS: ATORVASTATIN 40 MG TAB PO SCH (22:47)
[2018-04-14] MEDS: PANTOPRAZOLE 40 MG TABLET PO SCH (22:51)
[2018-04-14] MEDS: AMPICILLIN-SULBACTAM 3 GM in SODIUM CHLORIDE 0.9% 100 ML IVPB SCH (22:51)
[2018-04-14] MEDS: HEPARIN SODIUM,PORCINE 5,000 UNIT/ML 1 ML VIAL SQ SCH (22:51)
[2018-04-15 04:56] LABS: Appearance,Urine Clear (Clear); Bilirubin,Urine Negative (Negative); Blood,Urine Small (Negative); Color,Urine Yellow; Glucose,Urine (UA) Negative (Negative); Ketones,Urine 1+ (Negative); Leukocyte Esterase,Urine Moderate (Negative); Mucus,Urine Rare /hpf; Nitrite,Urine Negative (Negative); PH, Urine 6.5 (5.0-8.0); Protein,Urine Trace (Negative); RBC,Urine 41 /hpf (0-5); WBC,Urine 25 /hpf (0-5)
[2018-04-15] MEDS: PANTOPRAZOLE 40 MG TABLET PO SCH (06:27)
[2018-04-15] MEDS: CARBIDOPA-LEVODOPA 25-100 MG 1 EACH TAB PO SCH ×2 (06:27→11:41)
[2018-04-15] MEDS: AMPICILLIN-SULBACTAM 3 GM in SODIUM CHLORIDE 0.9% 100 ML IVPB SCH ×4 (06:28→23:31)
[2018-04-15 06:56] LABS: Basophils % (A) 0 %; Eosinophils % (A) 0 %; HCT 46.8 % (34.0-46.0); HGB 15.5 gm/dL (11.4-16.0); Lymphocytes # (A) 3.3 k/uL (1.0-4.8); Lymphocytes % (A) 54 %; MCH 31.6 pg (25.0-35.0); MCHC 33.2 g/dL (31.0-37.0); MCV 95.4 fL (80.0-100.0); Mean Platelet Volume 8.7; Monocytes # (A) 0.6 k/uL (0-1.0); Monocytes % (A) 10 %; Neutrophils % (A) 33 %; Platelet Count 115 k/uL (150-450); RBC 4.91 m/uL (3.80-5.40); RDW 15.2 % (11.5-15.5); WBC 6.1 k/uL (3.8-10.6)
[2018-04-15 08:05] LABS: Anion Gap 6 mmol/L; Blood Urea Nitrogen 11 mg/dL (7-17); Carbon Dioxide 27 mmol/L (22-30); Chloride 108 mmol/L (98-107); Glucose 65 mg/dL (74-99); Potassium 4.7 mmol/L (3.5-5.1); Sodium 141 mmol/L (137-145)
[2018-04-15 09:28] LABS: Valproic Acid (Depakene) 94.2 ug/mL
[2018-04-15] MEDS: DIVALPROEX 500 MG TABLET.DR PO SCH ×3 (09:39→20:59)
[2018-04-15] MEDS: PROPRANOLOL 20 MG TAB PO SCH (09:40)
[2018-04-15] MEDS: HEPARIN SODIUM,PORCINE 5,000 UNIT/ML 1 ML VIAL SQ SCH ×2 (09:42→21:02)
--- NOTE | 2018-04-15 13:44 | P.CONS ---
History of Present Illness - Reason for Consult Consult date: 04/15/18 Sepsis - History of Present Illness This is a 53-year-old female patient who is currently residing at [facility] with past history of Parkinson's and seizure disorder along with CVA. Patient was recently hospitalized April 07 through April 10 and treated for metabolic encephalopathy secondary to a Proteus urinary tract infection and discharged on Bactrim. She was also treated for hypercoagulopathy and was to return back on Coumadin once her INR was 2-3. At the time of discharge her INR was 2.6. She was resumed back on [facility]madin at the [facility] on April 10. She was discharged on Bactrim DS twice daily for a 10 day course which was continued at the [facility]. Patient was brought into [facility] emergency center on April 14 for acute mental status changes. She was found to be afebrile with white count of 6, creatinine 0.97, INR is greater than 10, valproic acid was normal limits. Urinalysis was clear with ketones 1+ , blood small, leukoesterase moderate, nitrate negative, RBCs 41 and WBC is 25. Blood culture and urine culture are status received. CAT scan of the brain showed cerebral atrophy with chronic small vessel ischemic change, mild hydrocephalus with no change from review this. Patient was given dose of vitamin K, started on Unasyn and admitted to the selective care unit. Patient has been seen in consultation by Dr. Pulliam and her Sinemet dose has been increased. EEG is pending. Patient is unable to provide full story but is able to answer simple questions. Review of Systems ROS unobtainable: due to mental status All systems: negative Constitutional: Denies chills, Denies fever, Denies poor appetite Eyes: denies blurred vision, denies pain Ears, nose, mouth and throat: Denies headache, Denies sore throat Cardiovascular: Denies chest pain, Denies shortness of breath Respiratory: Denies cough Gastrointestinal: Denies abdominal pain, Denies diarrhea, Denies nausea, Denies vomiting Genitourinary: Denies dysuria, Denies hematuria Musculoskeletal: Denies myalgias Integumentary: Denies pruritus, Denies rash Neurological: Reports change in mentation, Denies numbness, Denies weakness Psychiatric: Denies anxiety, Denies depression Endocrine: Denies fatigue, Denies weight change Past Medical History Past Medical History: CVA/TIA, Pneumonia, Seizure Disorder Additional Past Medical History / Comment(s): Parkinson's, heart murmur, CVA 2012 right sided, previously chart 04/07/18Pt stated she has not had a seizure in 20 years, at time of this admit unable to verify with pt.uti's, rls,per [facility] paperwork, hx asthma, chronic pain, musclw spasms/spastic movements History of Any Multi-Drug Resistant Organisms: None Reported Past Surgical History: Cholecystectomy, Hysterectomy, Orthopedic Surgery Additional Past Surgical History / Comment(s): kidney stone removal, torn ligament repair on right ankle, eye surgery when she was little. Past Anesthesia/Blood Transfusion Reactions: No Reported Reaction Smoking Status: Former smoker Additional Past Alcohol Use History / Comment(s): Patient currently resides at [facility]. She is bed/wheelchair bound. - Past Family History Father Additional Family Medical History / Comment(s): pt adopted does not know of family hx Medications and Allergies Home Medications Medication Instructions Recorded Confirmed Type Dicyclomine [Bentyl] 20 mg PO Q6H PRN 08/26/16 04/14/18 History Acetaminophen [Tylenol] 650 mg PO Q4H PRN 12/02/16 04/14/18 History Bisacodyl 10 mg RECTAL DAILY PRN 12/02/16 04/14/18 History Cyclobenzaprine [Flexeril] 10 mg PO BID PRN 12/02/16 04/14/18 History HYDROcodone/APAP 5-325MG [[place] 1 tab PO Q4HR PRN 12/02/16 04/14/18 History 5-325] ALPRAZolam [Xanax] 0.25 mg PO TID@0800,1400,2000 04/07/18 04/14/18 History Magnesium Hydroxide [Milk of 400 mg PO DAILY PRN 04/07/18 04/14/18 History Magnesia] Na Phos,M-B/Na Phos,Di-Ba [Fleet 133 ml RECTAL ONCE PRN 04/07/18 04/14/18 History Adult] Warfarin [Coumadin] 1 mg PO TUTHSA@1700 04/07/18 04/14/18 History Warfarin [Coumadin] 3 mg PO SUMOWEFR@1700 04/07/18 04/14/18 History diphenhydrAMINE [Benadryl] 25 mg PO HS PRN 04/07/18 04/14/18 History Amitriptyline HCl [Elavil] 25 mg PO HS 04/08/18 04/14/18 History Atorvastatin [Lipitor] 40 mg PO HS 04/08/18 04/14/18 History Divalproex [Depakote] 500 mg PO TID@0800,1400,2100 04/08/18 04/14/18 History Famotidine [Pepcid] 20 mg PO BID@0700,1700 04/08/18 04/14/18 History Propranolol [Inderal] 20 mg PO DAILY 04/08/18 04/14/18 History Benzocaine/Menthol Lozeng [Cepacol 1 tab MUCOUS MEM Q4HR PRN 04/14/18 04/14/18 History lozenge] Carbidopa-Levodopa 25-100 mg 0.5 tab PO BID@1230,1730 04/14/18 04/14/18 History [Sinemet 25-100 mg] Sulfamethox-Tmp 800-160Mg [Bactrim 1 tab PO BID@0700,1700 04/14/18 04/14/18 History DS 800-160 mg] Allergies Allergy/AdvReac Type Severity Reaction Status Date / Time cephalexin monohydrate Allergy Intermediate mouth Verified 04/14/18 14:14 [From Keflex] breaks out in sores Cephalosporins Allergy Intermediate mouth Verified 04/14/18 14:14 breaks out in sores codeine Allergy Intermediate Rash/Hives Verified 04/14/18 14:14 prednisone Allergy Intermediate Rash/Hives Verified 04/14/18 14:14 acetaminophen [From Tylenol] AdvReac Intermediate Rash/Hives Verified 04/14/18 14:14 Physical Exam Vitals: Vital Signs Temp Pulse Pulse Resp BP BP Pulse Ox 04/15/18 11:30 97.6 F 57 L 18 116/77 93 L 04/15/18 08:55 97.6 F 60 18 114/67 92 L 04/15/18 08:30 60 18 04/15/18 04:00 96.9 F L 54 L 17 129/81 100 04/15/18 00:20 98.0 F 69 16 118/72 95 04/14/18 20:00 51 L 18 04/14/18 19:02 96.3 F L 51 L 18 132/76 93 L 04/14/18 18:29 97.6 F 55 L 18 126/58 97 04/14/18 16:05 55 L 18 136/73 95 04/14/18 13:35 97.5 F L 59 L 18 123/70 100 Intake and Output 04/14/18 04/15/18 04/15/18 22:59 06:59 14:59 Intake Total 120 Balance 120 Intake: Oral 120 Other: Voiding Method Diaper Diaper Incontinent Incontinent # Voids 1 3 1 # Bowel Movements 0 Gen: This is a 53-year-old obese female patient. She is sitting up in bed and appears to be comfortable. No acute respiratory distress is noted. HEENT: Head is atraumatic, normocephalic. Pupils equal, round. Sclerae is anicteric. Conjunctiva pink. Oral mucous membranes are dry. Masklike face. NECK: Supple. No JVD. No lymphadenopathy. No thyromegaly. LUNGS: Diminished but otherwise Clear to auscultation. No wheezes or rhonchi. No intercostal retractions. HEART: Regular rate and rhythm. No murmur. ABDOMEN: Soft. Bowel sounds are present. No masses. No tenderness. No suprapubic tenderness. No CVA tenderness bilaterally. EXTREMITIES: No pedal edema. No calf tenderness. NEUROLOGICAL: Patient is awake, alert and oriented [address] Generalized weakness noted. Speech is hypophonic. Results Results: Laboratory Results WBC 6.1 k/uL (3.8-10.6) 04/15/18 06:06 RBC 4.91 m/uL (3.80-5.40) 04/15/18 06:06 Hgb 15.5 gm/dL (11.4-16.0) 04/15/18 06:06 Hct 46.8 % (34.0-46.0) H 04/15/18 06:06 MCV 95.4 fL (80.0-100.0) 04/15/18 06:06 MCH 31.6 pg (25.0-35.0) 04/15/18 06:06 MCHC 33.2 g/dL (31.0-37.0) 04/15/18 06:06 RDW 15.2 % (11.5-15.5) 04/15/18 06:06 Plt Count 115 k/uL (150-450) L 04/15/18 06:06 Neutrophils % 33 % 04/15/18 06:06 Lymphocytes % 54 % 04/15/18 06:06 Monocytes % 10 % 04/15/18 06:06 Eosinophils % 0 % 04/15/18 06:06 Basophils % 0 % 04/15/18 06:06 Neutrophils # 2.0 k/uL (1.3-7.7) 04/15/18 06:06 Lymphocytes # 3.3 k/uL (1.0-4.8) 04/15/18 06:06 Monocytes # 0.6 k/uL (0-1.0) 04/15/18 06:06 Eosinophils # 0.0 k/uL (0-0.7) 04/15/18 06:06 Basophils # 0.0 k/uL (0-0.2) 04/15/18 06:06 PT 112.5 sec (9.0-12.0) H 04/14/18 14:30 INR >10.0 (<1.2) H* 04/14/18 14:30 APTT 39.5 sec (22.0-30.0) H 04/14/18 14:30 Sodium 141 mmol/L (137-145) 04/15/18 06:06 Potassium 4.7 mmol/L (3.5-5.1) 04/15/18 06:06 Chloride 108 mmol/L (98-107) H 04/15/18 06:06 Carbon Dioxide 27 mmol/L (22-30) 04/15/18 06:06 Anion Gap 6 mmol/L 04/15/18 06:06 BUN 11 mg/dL (7-17) 04/15/18 06:06 Creatinine 0.70 mg/dL (0.52-1.04) 04/15/18 06:06 Est GFR (CKD-EPI)AfAm >90 (>60 ml/min/1.73 sqM) 04/15/18 06:06 Est GFR (CKD-EPI)NonAf >90 (>60 ml/min/1.73 sqM) 04/15/18 06:06 Glucose 65 mg/dL (74-99) L 04/15/18 06:06 Calcium 9.0 mg/dL (8.4-10.2) 04/15/18 06:06 Phosphorus 3.4 mg/dL (2.5-4.5) 04/14/18 14:30 Total Bilirubin 0.3 mg/dL (0.2-1.3) 04/14/18 14:30 AST 56 U/L (14-36) H 04/14/18 14:30 ALT 54 U/L (9-52) H 04/14/18 14:30 Alkaline Phosphatase 81 U/L (38-126) 04/14/18 14:30 Total Protein 7.1 g/dL (6.3-8.2) 04/14/18 14:30 Albumin 3.8 g/dL (3.5-5.0) 04/14/18 14:30 Urine Color Yellow 04/14/18 23:45 Urine Appearance Clear (Clear) 04/14/18 23:45 Urine pH 6.5 (5.0-8.0) 04/14/18 23:45 Ur Specific [place] 1.020 (1.001-1.035) 04/14/18 23:45 Urine Protein Trace (Negative) H 04/14/18 23:45 Urine Glucose (UA) Negative (Negative) 04/14/18 23:45 Urine Ketones 1+ (Negative) H 04/14/18 23:45 Urine Blood Small (Negative) H 04/14/18 23:45 Urine Nitrite Negative (Negative) 04/14/18 23:45 Urine Bilirubin Negative (Negative) 04/14/18 23:45 Urine Urobilinogen 2.0 mg/dL (<2.0) 04/14/18 23:45 Ur Leukocyte Esterase Moderate (Negative) H 04/14/18 23:45 Urine RBC 41 /hpf (0-5) H 04/14/18 23:45 Urine WBC 25 /hpf (0-5) H 04/14/18 23:45 Urine Mucus Rare /hpf (None) H 04/14/18 23:45 Valproic Acid 94.2 ug/mL 04/15/18 06:06 CBC & Chem 7: 04/15/18 06:06 04/15/18 06:06 Labs: Abnormal Lab Results - Last 24 Hours (Table) 04/14/18 04/14/18 04/14/18 Range/Units 14:30 14:30 14:30 Hgb 16.3 H (11.4-16.0) gm/dL Hct 48.9 H (34.0-46.0) % Plt Count (150-450) k/uL PT 112.5 H (9.0-12.0) sec INR >10.0 H* (<1.2) APTT 39.5 H (22.0-30.0) sec Chloride (98-107) mmol/L Glucose (74-99) mg/dL AST 56 H (14-36) U/L ALT 54 H (9-52) U/L Urine Protein (Negative) Urine Ketones (Negative) Urine Blood (Negative) Ur Leukocyte Esterase (Negative) Urine RBC (0-5) /hpf Urine WBC (0-5) /hpf Urine Mucus (None) /hpf 04/14/18 04/15/18 04/15/18 Range/Units 23:45 06:06 06:06 Hgb (11.4-16.0) gm/dL Hct 46.8 H (34.0-46.0) % Plt Count 115 L (150-450) k/uL PT (9.0-12.0) sec INR (<1.2) APTT (22.0-30.0) sec Chloride 108 H (98-107) mmol/L Glucose 65 L (74-99) mg/dL AST (14-36) U/L ALT (9-52) U/L Urine Protein Trace H (Negative) Urine Ketones 1+ H (Negative) Urine Blood Small H (Negative) Ur Leukocyte Esterase Moderate H (Negative) Urine RBC 41 H (0-5) /hpf Urine WBC 25 H (0-5) /hpf Urine Mucus Rare H (None) /hpf Microbiology - Last 24 Hours (Table) 04/14/18 23:45 Urine Culture - Preliminary Urine,Voided Assessment and Plan Plan: This is a 53-year-old female patient who was recently treated for metabolic encephalopathy secondary to Proteus urinary tract infection as well as hypercoagulopathy. She was discharged on Bactrim and resumed on Coumadin. She presents back with acute mental status changes and hypercoagulopathy initially with an INR greater than 10. Bactrim has been discontinued and patient started on Unasyn. Noted she does have an ALLERGY to cephalosporins which causes mouth sores. We will last for repeat INR. Waffle boots to be obtained to prevent breakdown on bilateral heels. Continue supportive care. Further recommendations as patient progresses. The above dictated assessment and findings were discussed with Dr. Fisher. The impression and plan of care have been directed as dictated. Natasha Puga nurse practitioner acting as scribe for Dr. Fisher.
--- NOTE | 2018-04-15 17:06 | PN ---
PROGRESS NOTE DATE OF SERVICE: 04/15/2018. INTERVAL HISTORY: This 53-year-old woman who was admitted with change in mental status, UTI with sepsis is being closely monitored. The patient also was on Coumadin coagulopathy. Infectious disease is following the patient closely. INR today is not elevated today. No chest pain. No palpitations. No fever. EXAM: Alert and oriented x2. Pulse 57, blood pressure 160/70, respiration 18, temperature 97.2, pulse ox 98% on room air. HEENT: Conjunctivae normal. NECK: No jugular venous distention. No carotid bruit. No lymph node enlargement. CARDIOVASCULAR: S1, S2. RESPIRATION: Breath sounds diminished in the bases. A few scattered rhonchi. ABDOMEN is soft, nontender. LEGS are no edema. No swelling. CENTRAL NERVOUS SYSTEM: Diffusely weak. LAB STUDIES: Platelets 150. Other labs are noted. Cultures are negative so far. ASSESSMENT: 1. Change in mental status possible acute urinary tract infection with sepsis with possibly Proteus mirabilis. 2. Coumadin coagulopathy. 3. Seizure disorder. 4. History of cerebrovascular accident/transient ischemic attack. 5. History of Parkinson's. 6. Gait dysfunction. 7. History of cardiac murmur. 8. History of cerebrovascular accident, right hemiplegia. 9. Cholecystectomy. 10.History of nephrolithiasis. 11.Remote history of nicotine dependence. RECOMMENDATIONS AND DISCUSSION: This 53-year-old woman who presented with multiple complex medical issues, we will monitor the patient closely. Continue the current medications, management and symptomatic treatment. Otherwise at this time, I recommend continue the current medications. The patient is started on IV Unasyn. We will obtain a culture report. Closely follow with multiple consultants. The overall prognosis is guarded because of multiple complex medical issues. I would also recommend PT/OT evaluation and a social service consultation as well. Otherwise, overall prognosis guarded because of multiple complex medical issues and further recommendations to follow. MMODL / IJN: [id number] /
--- NOTE | 2018-04-15 20:39 | EEG ---
ELECTROENCEPHALOGRAM REPORT DATE OF EE04/15/2018. REFERRING PHYSICIAN: Dr. Clark. CONSULTING AND INTERPRETING PHYSICIAN: Dr. Gaby Pulliam. INDICATION FOR EXAMINATION: This patient is a 53-year-old female being evaluated for altered mental status and sepsis. Patient with episode of confusion. AGE: 53. EEG FINDINGS: A routine 21 channel awake digital EEG recording was accomplished utilizing the 10-20 international system with bipolar and referential montages. The background activity in the most alert resting state consists of a low to medium amplitude, poorly-developed and poorly-sustained 5-6 Hz activity over the posterior head regions. This posterior rhythm attenuates to eye opening. There is a small amount of low amplitude 18-20 Hz beta activity seen maximally over the anterior head regions. Muscle and movement artifact was observed on a few occasions during the tracing. Hyperventilation was not performed. Photic stimulation at flash frequencies of 2-30 Hz produced a minimal occipital driving response. Toward the mid and lateral portion of the tracing, the patient does drift into spontaneous drowsiness. No epileptiform discharges were seen. IMPRESSION: This EEG is moderately abnormal in a diffuse fashion due to slowing of the EEG background. The EEG failed to reveal any focal, lateralized or epileptiform abnormalities. Clinical correlation is recommended. MMODL / IJN: [id number] /
[2018-04-15] MEDS: ATORVASTATIN 40 MG TAB PO SCH (20:56)
--- NOTE | 2018-04-15 22:56 | P.CON ---
Consult Note - . Consult date: 04/15/18 Assessment/Plan:: This is a 53-year-old female patient who is currently residing at [facility] with past history of Parkinson's and seizure disorder along with CVA. Patient was recently hospitalized April 07 through April 10 and treated for metabolic encephalopathy secondary to a Proteus urinary tract infection and discharged on Bactrim. She was also treated for hypercoagulopathy and was to return back on Coumadin once her INR was 2-3. At the time of discharge her INR was 2.6. She was resumed back on Coumadin at the senior care on April 10. She was discharged on Bactrim DS twice daily for a 10 day course which was continued at the senior care. Patient was brought into [facility] emergency center on April 14 for acute mental status changes. She was found to be afebrile with white count of 6, creatinine 0.97, INR is greater than 10, valproic acid was normal limits. Urinalysis was clear with ketones 1+ , blood small, leukoesterase moderate, nitrate negative, RBCs 41 and WBC is 25. Blood culture and urine culture are status received. CAT scan of the brain showed cerebral atrophy with chronic small vessel ischemic change, mild hydrocephalus with no change from review this. Patient was given dose of vitamin K, started on Unasyn and admitted to the selective care unit. Patient has been seen in consultation by Dr. Pulliam and her Sinemet dose has been increased. EEG is pending. Patient is unable to provide full story but is able to answer simple questions. We see the consult note is dictated by nurse practitioner Mrs. Natasha Puga. 53-year-old female who has profound cognitive dysfunction is comfortable at this time. As noted was admitted to hospital with evidence of an INR of greater than 10 fortunately without great amounts of bleeding. Antibiotic therapy was with Bactrim which likely interacted with her Coumadin. She now presents with likely ongoing sepsis from urinary tract invasive her prior cultures which were of Proteus and E. coli, antibiotic therapy with ampicillin and sulbactam is being utilized. Cultures are pending as are blood cultures. Once cultures are available within be able to better clarify the plan that she will need for use of the time of discharge. Fortunately this time she is quite comfortable, she is not having high-grade fevers, and is hemodynamically stable. The follow-up INR has been requested and her hemoconcentration has improved since she has been hydrated with admission. I agree with evaluation, assessment and plan as dictated by nurse practitioner Mrs. Natasha Puga.
[2018-04-16] MEDS: AMPICILLIN-SULBACTAM 3 GM in SODIUM CHLORIDE 0.9% 100 ML IVPB SCH ×3 (06:26→17:00)
[2018-04-16 07:55] LABS: Basophils % (A) 0 %; Eosinophils % (A) 0 %; HCT 46.4 % (34.0-46.0); HGB 15.1 gm/dL (11.4-16.0); Lymphocytes # (A) 3.2 k/uL (1.0-4.8); Lymphocytes % (A) 29 %; MCH 31.2 pg (25.0-35.0); MCHC 32.5 g/dL (31.0-37.0); MCV 95.8 fL (80.0-100.0); Mean Platelet Volume 7.8; Monocytes # (A) 0.9 k/uL (0-1.0); Monocytes % (A) 8 %; Neutrophils # (A) 6.5 k/uL (1.3-7.7); Neutrophils % (A) 61 %; Platelet Count 119 k/uL (150-450); RBC 4.84 m/uL (3.80-5.40); RDW 14.8 % (11.5-15.5); WBC 10.8 k/uL (3.8-10.6)
[2018-04-16 08:03] LABS: INR 1.2 (<1.2); Prothrombin Time 11.7 sec (9.0-12.0)
[2018-04-16 08:20] LABS: Anion Gap 9 mmol/L; Blood Urea Nitrogen 8 mg/dL (7-17); Calcium 9.1 mg/dL (8.4-10.2); Carbon Dioxide 22 mmol/L (22-30); Chloride 110 mmol/L (98-107); Glucose 86 mg/dL (74-99); Sodium 141 mmol/L (137-145)
[2018-04-16] MEDS: PROPRANOLOL 20 MG TAB PO SCH (09:52)
[2018-04-16] MEDS: DIVALPROEX 500 MG TABLET.DR PO SCH ×3 (09:52→21:23)
[2018-04-16] MEDS: PANTOPRAZOLE 40 MG TABLET PO SCH (09:52)
[2018-04-16] MEDS: HEPARIN SODIUM,PORCINE 5,000 UNIT/ML 1 ML VIAL SQ SCH ×2 (09:52→21:23)
[2018-04-16] MEDS: CARBIDOPA-LEVODOPA 25-100 MG 1 EACH TAB PO SCH ×2 (09:52→14:51)
--- NOTE | 2018-04-16 13:39 | CDI ---
Last Revision, August 2017 Documentation Clarification Form Date: 04/16/2018 12:00:00 AM From: Keyonna Nye RN, CCDS Admit Date: 04/14/2018 3:48:00 PM Patient Name: Mavis Marsh Visit Number: [id number] Discharge Date: ATTENTION: The Clinical Documentation Specialists (CDI) and [facility] Coding Staff appreciate your assistance in clarifying documentation. Please respond to the clarification below the line at the bottom and electronically sign. The CDI & [facility] Coding staff will review the response and follow-up if needed. Please note: Queries are made part of the Legal Health Record. If you have any questions, please contact the author of this message via ITS. Dr. Florencio Clark Altered mental status was documented in the ER evaluation your H&P and your ongoing progress notes. Patient history/risk factors: CVA, Parkinson's, Seizure disorder, UTI with Proteus and E.coli Clinical Indicators: ER for evaluation regards to altered mental status. She was recently treated for Proteus urinary tract infection. 04/07/18 and discharged on Bactrim. Labs: UA Ur. Leukocyte Esterase moderate Blood culture: Final Gram positive cocci, Vital signs 123/70 59 18 97.5, CT Brain: Cerebral atrophy and chronic small vessel ischemia and mild hydrocephalus, no change compared to old exam Treatment: Neurological assessment per orders Monitor Labs Unasyn IV In your professional opinion, please clarify the etiology of the altered mental status, if known. Encephalopathy (specify Type: Metabolic, Other, and Underlying Medical Illness) Delirium (specify cause) Dementia (if know, specify Type and if with/without Behavioral Disturbance) Other condition (please specify) Unable to determine Please continue to document in your progress notes and discharge summary in order to capture severity of illness and risk of mortality. Include clinical findings that support your diagnosis. Encephalopathy Metabolic MTDD
[2018-04-16] MEDS: ATORVASTATIN 40 MG TAB PO SCH (21:23)
[2018-04-17] MEDS: AMPICILLIN-SULBACTAM 3 GM in SODIUM CHLORIDE 0.9% 100 ML IVPB SCH ×4 (05:33→17:41)
[2018-04-17 08:06] LABS: Basophils % (A) 0 %; Eosinophils % (A) 0 %; HCT 42.8 % (34.0-46.0); HGB 13.8 gm/dL (11.4-16.0); Lymphocytes # (A) 3.7 k/uL (1.0-4.8); Lymphocytes % (A) 49 %; MCH 31.1 pg (25.0-35.0); MCHC 32.1 g/dL (31.0-37.0); MCV 96.8 fL (80.0-100.0); Mean Platelet Volume 8.4; Monocytes # (A) 0.6 k/uL (0-1.0); Monocytes % (A) 8 %; Neutrophils # (A) 3.1 k/uL (1.3-7.7); Neutrophils % (A) 42 %; Platelet Count 102 k/uL (150-450); RBC 4.42 m/uL (3.80-5.40); RDW 14.6 % (11.5-15.5); WBC 7.5 k/uL (3.8-10.6)
[2018-04-17 08:13] LABS: Anion Gap 5 mmol/L; Calcium 8.8 mg/dL (8.4-10.2); Carbon Dioxide 23 mmol/L (22-30); Chloride 112 mmol/L (98-107); Glucose 70 mg/dL (74-99); Sodium 140 mmol/L (137-145)
[2018-04-17 08:17] LABS: Blood Urea Nitrogen 10 mg/dL (7-17); Potassium 4.3 mmol/L (3.5-5.1)
[2018-04-17] MEDS: HEPARIN SODIUM,PORCINE 5,000 UNIT/ML 1 ML VIAL SQ SCH ×2 (08:24→19:42)
[2018-04-17] MEDS: CARBIDOPA-LEVODOPA 25-100 MG 1 EACH TAB PO SCH ×4 (08:26→23:13)
[2018-04-17] MEDS: PROPRANOLOL 20 MG TAB PO SCH (08:26)
[2018-04-17] MEDS: DIVALPROEX 500 MG TABLET.DR PO SCH ×3 (08:27→19:42)
[2018-04-17] MEDS: PANTOPRAZOLE 40 MG TABLET PO SCH (08:27)
[2018-04-17 08:32] LABS: INR 1.1 (<1.2); Prothrombin Time 10.7 sec (9.0-12.0)
--- NOTE | 2018-04-17 11:33 | P.PN ---
Subjective Progress Note Date: 04/16/18 Principal diagnosis: Mental status change possibly secondary to UTI; coagulopathy secondary to Coumadin 53 her old female patient history of CVA, Parkinson's disease and seizure disorder admitted to the hospital with mental status change and elevated PT/INR ; patient was found to have UTI and is admitted for further treatment Objective - Vital Signs Vital signs: Vital Signs Temp 97.7 F 04/16/18 07:00 Pulse 81 04/16/18 07:00 Resp 16 04/16/18 07:00 BP 140/65 04/16/18 07:00 Pulse Ox 92 L 04/16/18 07:00 Intake & Output 04/15/18 04/16/18 04/16/18 18:59 06:59 18:59 Intake Total 360 670 Balance 360 670 Weight 109 kg Intake: IV 620 Ampicillin-Sulbactam 3 gm 200 In Sodium Chloride 0.9% 100 ml @ 100 mls/hr IVPB Q6HR [facility] Rx#:[id number] Sodium Chloride 0.9% 1, 300 000 ml @ 75 mls/hr IV . [id number] ONE with Mvi, Adult No.4 with Vit K 10 ml with Thiamine 100 mg with Folic Acid 1 mg Rx#: [id number] ns@20 120 Oral 360 50 Other: Voiding Method Diaper Diaper Incontinent Incontinent # Voids 2 # Bowel Movements 1 - Exam - Constitutional General appearance: Present: average body habitus, cooperative, no acute distress - EENT Eyes: Present: anicteric sclerae, EOMI, PERRLA, normal appearance ENT: Present: hearing grossly normal, normal oropharynx Ears: bilateral: normal - Neck Neck: Present: normal ROM. Absent: lymphadenopathy, rigidity, thyromegaly Carotids: negative: bruit present Thyroid: bilateral: normal size, negative: enlarged, nodule - Respiratory Respiratory: bilateral: CTA, negative: rales, rhonchi, wheezing - Cardiovascular Rhythm: regular Heart sounds: normal: S1, S2 Abnormal Heart Sounds: Absent: systolic murmur, diastolic murmur - Gastrointestinal General gastrointestinal: Present: normal bowel sounds, soft. Absent: distended , organomegaly, tenderness - Genitourinary Genitourinary Comment(s): deferred - Integumentary Integumentary: Present: normal turgor. Absent: jaundiced, rash, ulcer - Neurologic Neurologic: Present: CNII-XII intact. Absent: focal deficits - Musculoskeletal Musculoskeletal: Present: gait normal, strength equal bilaterally - Psychiatric Psychiatric: Present: A&O x's 3, appropriate affect, intact judgment & insight - Labs CBC & Chem 7: 04/17/18 07:06 04/17/18 07:06 Labs: Abnormal Lab Results - Last 24 Hours (Table) 04/16/18 04/16/18 04/16/18 Range/Units 07:25 07:25 07:25 WBC 10.8 H (3.8-10.6) k/uL Hct 46.4 H (34.0-46.0) % Plt Count 119 L (150-450) k/uL INR 1.2 H (<1.2) Chloride 110 H (98-107) mmol/L Microbiology - Last 24 Hours (Table) 04/14/18 18:47 Blood Culture Gram Stain - Preliminary Blood 04/14/18 18:47 Blood Culture - Final Blood 04/14/18 23:45 Urine Culture - Preliminary Urine,Voided Assessment and Plan Assessment: 1. Mental status change; metabolic encephalopathy secondary to UTI - Patient remains on IV Unasyn 3 g every 6 hours - Urine culture is done and pending; will adjust antibiotic treatment according to culture results - Blood cultures are obtained and are pending - EEG is done and is negative for epileptiform focus; neurology is following 2. Coumadin toxicity - Patient was given oral vitamin K; Coumadin has been put on hold 3. Seizure disorder - EEG done in the hospital is negative for epileptiform focus; await further recommendations from neurology service 4. History of CVA/TIA with right hemiplegia; at baseline 5. Parkinson's disease; significant bradykinesia and rigidity - Neurology has increased dose of Sinemet; plan is to monitor closely for dyskinesias - Depakote level is ordered and is pending 6. History of cardiac murmur 7. DVT prophylaxis CODE STATUS; full code Time with Patient: Greater than 30
[2018-04-17] MEDS: HYDROcodone/APAP 5-325MG 1 EACH TAB PO PRN (14:48)
[2018-04-17] MEDS ORDERED: IBUPROFEN 200 MG TAB PO PRN (16:40)
--- NOTE | 2018-04-17 17:51 | P.PN ---
Subjective Progress Note Date: 04/17/18 The patient is a 53-year-old woman with history of Parkinson's disease and seizure disorder who was recently hospitalized and readmitted with sepsis and oral altered mental status. She has been treated for UTI. She is more alert today. Her Parkinson's medication had been adjusted and there has been no side effects to the medication adjustment. The patient did have 1 episode of dyskinesia associated with headache which was relieved after getting pain medication for headache. Likely this was on not due to Parkinson's disease. The patient has some trouble swallowing and will be switched to pured diet. The patient has some elevated liver enzymes and her Depakote level is 94. We will adjust her Depakote slightly and repeat LFTs. The patient has no specific complaints. She is sitting up in bed eyes open and able to speak. There is quite a bit of bradykinesia but somewhat improved after higher dose of Sinemet. She has had an EEG which showed moderate slowing but no seizure activity. Objective - Vital Signs Vital signs: Vital Signs Temp 99.0 F 04/17/18 05:43 Pulse 63 04/17/18 16:00 Resp 18 04/17/18 16:00 BP 131/61 04/17/18 05:43 Pulse Ox 96 04/17/18 05:43 Intake & Output 04/16/18 04/17/18 04/17/18 18:59 06:59 18:59 Intake Total 140 50 240 Balance 140 50 240 Weight 108.5 kg Intake: IV 140 240 Ampicillin-Sulbactam 3 gm 100 In Sodium Chloride 0.9% 100 ml @ 100 mls/hr IVPB Q6HR [facility] Rx#:[id number] ns@20 140 140 Oral 50 Other: Voiding Method Diaper Diaper Diaper Incontinent Incontinent Incontinent # Voids 2 - Constitutional General appearance: Present: obese - EENT Eyes: Present: PERRLA - Respiratory Respiratory: bilateral: CTA - Cardiovascular Rhythm: regular - Neurologic Neurologic Comment(s): Neurologic examination: Mental status: She was awake she was alert she hadn't masklike face ease. She did respond to questions but very slowly. Cranial nerve examination pupils were 3 mm and equal there was no ptosis no nystagmus no facial asymmetry Motor examination she had equal hand chief controller station. Overall she had some spasticity and general weakness - Labs CBC & Chem 7: 04/17/18 07:06 07/20/18 07:06 Labs: Abnormal Lab Results - Last 24 Hours (Table) 04/17/18 04/17/18 Range/Units 07:06 07:06 Plt Count 102 L (150-450) k/uL Chloride 112 H (98-107) mmol/L Glucose 70 L (74-99) mg/dL Microbiology - Last 24 Hours (Table) 04/16/18 23:33 Urine Culture - Preliminary Urine,Voided 04/14/18 18:47 Blood Culture Gram Stain - Preliminary Blood Blood Culture - Preliminary Coagulase Negative Staph Assessment and Plan (1) Altered mental status Current Visit: Yes Status: Acute SNOMED Code(s): 657720914 (2) Parkinson disease Current Visit: Yes Status: Chronic SNOMED Code(s): 99195835 (3) History of seizures Current Visit: Yes Status: Chronic Code(s): Z87.898 - PERSONAL HISTORY OF OTHER SPECIFIED CONDITIONS SNOMED Code(s): 873276073 (4) UTI (urinary tract infection) Current Visit: Yes Status: Acute SNOMED Code(s): 49093300 Plan: The patient is a 53-year-old woman with Parkinson's disease and seizure disorder. She is admitted to the hospital with UTI and sepsis and altered mental status. Her Sinemet dose was adjusted and she seems to be improving. She has less bradykinesia. Recommendation was to change diet to pured. Also we'll switch from [place] to ibuprofen when necessary headache. Recommend lowering dose of Depakote and repeat LFTs.
[2018-04-17] MEDS: ATORVASTATIN 40 MG TAB PO SCH (19:42)
[2018-04-17] MEDS ORDERED: DIVALPROEX 500 MG TABLET.DR PO SCH (21:00)
[2018-04-17] MEDS ORDERED: DIVALPROEX 250 MG TABLET.DR PO SCH (22:00)
--- NOTE | 2018-04-17 23:52 | P.PN ---
Subjective Progress Note Date: 04/17/18 This is a 53-year-old female patient who is currently residing at [facility] with past history of Parkinson's and seizure disorder along with CVA. Patient was recently hospitalized April 07 through April 10 and treated for metabolic encephalopathy secondary to a Proteus urinary tract infection and discharged on Bactrim. She was also treated for hypercoagulopathy and was to return back on Coumadin once her INR was 2-3. At the time of discharge her INR was 2.6. She was resumed back on Coumadin at the intermediate on April 10. She was discharged on Bactrim DS twice daily for a 10 day course which was continued at the intermediate. Patient was brought into [facility] emergency center on April 14 for acute mental status changes. She was found to be afebrile with white count of 6, creatinine 0.97, INR is greater than 10, valproic acid was normal limits. Urinalysis was clear with ketones 1+ , blood small, leukoesterase moderate, nitrate negative, RBCs 41 and WBC is 25. Blood culture and urine culture are status received. CAT scan of the brain showed cerebral atrophy with chronic small vessel ischemic change, mild hydrocephalus with no change from review this. Patient was given dose of vitamin K, started on Unasyn and admitted to the selective care unit. Patient has been seen in consultation by Dr. Pulliam and her Sinemet dose has been increased. EEG is pending. Patient is unable to provide full story but is able to answer simple questions. 04/17/2018 the patient is doing somewhat better. She seems to be comfortable and voices no complaints. No evidence of active bleeding. Objective - Vital Signs Vital signs: Vital Signs Temp 98.9 F 04/17/18 21:31 Pulse 50 L 04/17/18 21:31 Resp 16 04/17/18 21:31 BP 121/62 04/17/18 21:31 Pulse Ox 91 L 04/17/18 21:31 Intake & Output 04/17/18 04/17/18 04/18/18 06:59 18:59 06:59 Intake Total 50 240 Balance 50 240 Weight 108.5 kg Intake: IV 240 Ampicillin-Sulbactam 3 gm 100 In Sodium Chloride 0.9% 100 ml @ 100 mls/hr IVPB Q6HR COUNT INCLUDES THE [facility] Rx#:[id number] ns@20 140 Oral 50 Other: Voiding Method Diaper Diaper Incontinent Incontinent # Voids 2 1 - Exam Gen: This is a 53-year-old obese female patient. She is sitting up in bed and appears to be comfortable. No acute respiratory distress is noted. HEENT: Head is atraumatic, normocephalic. Pupils equal, round. Sclerae is anicteric. Conjunctiva pink. Oral mucous membranes are dry. Masklike face. NECK: Supple. No JVD. No lymphadenopathy. No thyromegaly. LUNGS: Diminished but otherwise Clear to auscultation. No wheezes or rhonchi. No intercostal retractions. HEART: Regular rate and rhythm. No murmur. ABDOMEN: Soft. Bowel sounds are present. No masses. No tenderness. No suprapubic tenderness. No CVA tenderness bilaterally. EXTREMITIES: No pedal edema. No calf tenderness. NEUROLOGICAL: Patient is awake, alert and oriented [address] Generalized weakness noted. Speech is hypophonic. Results - Labs CBC & Chem 7: 04/17/18 07:06 04/17/18 07:06 Labs: Abnormal Lab Results - Last 24 Hours (Table) 04/17/18 04/17/18 04/17/18 Range/Units 07:06 07:06 07:06 Plt Count 102 L (150-450) k/uL Chloride 112 H (98-107) mmol/L Glucose 70 L (74-99) mg/dL AST 42 H (14-36) U/L Microbiology - Last 24 Hours (Table) 04/16/18 23:33 Urine Culture - Preliminary Urine,Voided 04/14/18 18:47 Blood Culture Gram Stain - Preliminary Blood Blood Culture - Preliminary Coagulase Negative Staph Laboratory Results WBC 7.5 k/uL (3.8-10.6) 04/17/18 07:06 RBC 4.42 m/uL (3.80-5.40) 04/17/18 07:06 Hgb 13.8 gm/dL (11.4-16.0) 04/17/18 07:06 Hct 42.8 % (34.0-46.0) 04/17/18 07:06 MCV 96.8 fL (80.0-100.0) 04/17/18 07:06 MCH 31.1 pg (25.0-35.0) 04/17/18 07:06 MCHC 32.1 g/dL (31.0-37.0) 04/17/18 07:06 RDW 14.6 % (11.5-15.5) 04/17/18 07:06 Plt Count 102 k/uL (150-450) L 04/17/18 07:06 Neutrophils % 42 % 04/17/18 07:06 Lymphocytes % 49 % 04/17/18 07:06 Monocytes % 8 % 04/17/18 07:06 Eosinophils % 0 % 04/17/18 07:06 Basophils % 0 % 04/17/18 07:06 Neutrophils # 3.1 k/uL (1.3-7.7) 04/17/18 07:06 Lymphocytes # 3.7 k/uL (1.0-4.8) 04/17/18 07:06 Monocytes # 0.6 k/uL (0-1.0) 04/17/18 07:06 Eosinophils # 0.0 k/uL (0-0.7) 04/17/18 07:06 Basophils # 0.0 k/uL (0-0.2) 04/17/18 07:06 PT 10.7 sec (9.0-12.0) 04/17/18 07:06 INR 1.1 (<1.2) 04/17/18 07:06 APTT 39.5 sec (22.0-30.0) H 04/14/18 14:30 Sodium 140 mmol/L (137-145) 04/17/18 07:06 Potassium 4.3 mmol/L (3.5-5.1) 04/17/18 07:06 Chloride 112 mmol/L (98-107) H 04/17/18 07:06 Carbon Dioxide 23 mmol/L (22-30) 04/17/18 07:06 Anion Gap 5 mmol/L 04/17/18 07:06 BUN 10 mg/dL (7-17) 04/17/18 07:06 Creatinine 0.61 mg/dL (0.52-1.04) 04/17/18 07:06 Est GFR (CKD-EPI)AfAm >90 (>60 ml/min/1.73 sqM) 04/17/18 07:06 Est GFR (CKD-EPI)NonAf >90 (>60 ml/min/1.73 sqM) 04/17/18 07:06 Glucose 70 mg/dL (74-99) L 04/17/18 07:06 Calcium 8.8 mg/dL (8.4-10.2) 04/17/18 07:06 Phosphorus 3.4 mg/dL (2.5-4.5) 04/14/18 14:30 Total Bilirubin 0.3 mg/dL (0.2-1.3) 04/14/18 14:30 AST 42 U/L (14-36) H 04/17/18 07:06 ALT 54 U/L (9-52) H 04/14/18 14:30 Alkaline Phosphatase 81 U/L (38-126) 04/14/18 14:30 Total Protein 7.1 g/dL (6.3-8.2) 04/14/18 14:30 Albumin 3.8 g/dL (3.5-5.0) 04/14/18 14:30 Urine Color Yellow 04/14/18 23:45 Urine Appearance Clear (Clear) 04/14/18 23:45 Urine pH 6.5 (5.0-8.0) 04/14/18 23:45 Ur Specific [place] 1.020 (1.001-1.035) 04/14/18 23:45 Urine Protein Trace (Negative) H 04/14/18 23:45 Urine Glucose (UA) Negative (Negative) 04/14/18 23:45 Urine Ketones 1+ (Negative) H 04/14/18 23:45 Urine Blood Small (Negative) H 04/14/18 23:45 Urine Nitrite Negative (Negative) 04/14/18 23:45 Urine Bilirubin Negative (Negative) 04/14/18 23:45 Urine Urobilinogen 2.0 mg/dL (<2.0) 04/14/18 23:45 Ur Leukocyte Esterase Moderate (Negative) H 04/14/18 23:45 Urine RBC 41 /hpf (0-5) H 04/14/18 23:45 Urine WBC 25 /hpf (0-5) H 04/14/18 23:45 Urine Mucus Rare /hpf (None) H 04/14/18 23:45 Valproic Acid 94.2 ug/mL 04/15/18 06:06 Microbiology 04/16/18 23:33 Urine,Voided Urine Culture - Preliminary 04/14/18 18:47 Blood Blood Culture Gram Stain - Preliminary 04/14/18 18:47 Blood Blood Culture - Preliminary Coagulase Negative Staph 04/14/18 23:45 Urine,Voided Urine Culture - Final 04/14/18 18:47 Blood Blood Culture - Final Assessment and Plan (1) Altered mental status Current Visit: Yes Status: Acute Code(s): R41.82 - ALTERED MENTAL STATUS, UNSPECIFIED SNOMED Code(s): 465287882 (2) Coagulopathy Current Visit: Yes Status: Acute Code(s): D68.9 - COAGULATION DEFECT, UNSPECIFIED SNOMED Code(s): 48752136 (3) Bacteremia due to Gram-positive bacteria Narrative/Plan: 53-year-old female who has profound cognitive dysfunction is comfortable at this time. As noted was admitted to hospital with evidence of an INR of greater than 10 fortunately without great amounts of bleeding. Antibiotic therapy was with Bactrim which likely interacted with her Coumadin. She now presents with likely ongoing sepsis from urinary tract invasive her prior cultures which were of Proteus and E. coli, antibiotic therapy with ampicillin and sulbactam is being utilized. Cultures are pending as are blood cultures. Once cultures are available within be able to better clarify the plan that she will need for use of the time of discharge. Fortunately this time she is quite comfortable, she is not having high-grade fevers, and is hemodynamically stable. The follow-up INR has been requested and her hemoconcentration has improved since she has been hydrated with admission. 04/17/2018 the patient is stable. Blood culture showing evidence of colitis negative staph is a contamination and needs no further intervention. She does not seem to have urinary symptoms but had likely some cystitis would like to limit her ampicillin sulbactam to 3 days of treatment. Follow blood cultures are negative. Unclear if she has attained her baseline mental status. She is comfortable today and the nursing staff relates that she has eaten well. Current Visit: Yes Status: Acute Code(s): R78.81 - BACTEREMIA SNOMED Code( s): 450705560380
[2018-04-18] MEDS: AMPICILLIN-SULBACTAM 3 GM in SODIUM CHLORIDE 0.9% 100 ML IVPB SCH ×4 (01:01→17:46)
[2018-04-18] MEDS: DIVALPROEX 500 MG TABLET.DR PO SCH ×2 (08:03→13:27)
[2018-04-18] MEDS: PROPRANOLOL 20 MG TAB PO SCH (08:03)
[2018-04-18] MEDS: PANTOPRAZOLE 40 MG TABLET PO SCH (08:03)
[2018-04-18] MEDS: CARBIDOPA-LEVODOPA 25-100 MG 1 EACH TAB PO SCH ×3 (08:03→17:35)
[2018-04-18] MEDS: HEPARIN SODIUM,PORCINE 5,000 UNIT/ML 1 ML VIAL SQ SCH ×2 (08:04→20:18)
[2018-04-18 08:29] LABS: Basophils % (A) 0 %; Eosinophils % (A) 0 %; HCT 42.4 % (34.0-46.0); HGB 13.4 gm/dL (11.4-16.0); Lymphocytes # (A) 4.2 k/uL (1.0-4.8); Lymphocytes % (A) 59 %; MCH 31.3 pg (25.0-35.0); MCHC 31.7 g/dL (31.0-37.0); MCV 98.7 fL (80.0-100.0); Mean Platelet Volume 7.4; Monocytes # (A) 0.5 k/uL (0-1.0); Monocytes % (A) 7 %; Neutrophils # (A) 2.2 k/uL (1.3-7.7); Neutrophils % (A) 31 %; Platelet Count 106 k/uL (150-450); RBC 4.29 m/uL (3.80-5.40); RDW 14.7 % (11.5-15.5); WBC 7.2 k/uL (3.8-10.6)
[2018-04-18 08:33] LABS: Anion Gap 6 mmol/L; Blood Urea Nitrogen 10 mg/dL (7-17); Carbon Dioxide 25 mmol/L (22-30); Chloride 112 mmol/L (98-107); Glucose 73 mg/dL (74-99); Sodium 143 mmol/L (137-145)
--- NOTE | 2018-04-18 12:25 | P.PN ---
Subjective Progress Note Date: 04/17/18 Principal diagnosis: Mental status change possibly secondary to UTI; coagulopathy secondary to Coumadin 53 her old female patient history of CVA, Parkinson's disease and seizure disorder admitted to the hospital with mental status change and elevated PT/INR ; patient was found to have UTI and is admitted for further treatment 04/17/2018 Patient is seen and evaluated in the room at bedside; patient is more awake and alert today; Parkinson's medications have been adjusted by neurology without any obvious side effects; patient has been switched to pured diet due to trouble swallowing; neurology recommending adjusting Depakote dose and monitoring LFTs; bradykinesia is somewhat improved with higher dose of Sinemet; patient's EEG remains unremarkable for seizure activity Objective - Vital Signs Vital signs: Vital Signs Temp 99.0 F 04/17/18 05:43 Pulse 63 04/17/18 08:00 Resp 18 04/17/18 08:00 BP 131/61 04/17/18 05:43 Pulse Ox 96 04/17/18 05:43 Intake & Output 04/16/18 04/17/18 04/17/18 18:59 06:59 18:59 Intake Total 140 50 Balance 140 50 Weight 108.5 kg Intake: IV 140 ns@20 140 Oral 50 Other: Voiding Method Diaper Diaper Diaper Incontinent Incontinent Incontinent # Voids 2 - Exam - Constitutional General appearance: Present: average body habitus, cooperative, no acute distress - EENT Eyes: Present: anicteric sclerae, EOMI, PERRLA, normal appearance ENT: Present: hearing grossly normal, normal oropharynx Ears: bilateral: normal - Neck Neck: Present: normal ROM. Absent: lymphadenopathy, rigidity, thyromegaly Carotids: negative: bruit present Thyroid: bilateral: normal size, negative: enlarged, nodule - Respiratory Respiratory: bilateral: CTA, negative: rales, rhonchi, wheezing - Cardiovascular Rhythm: regular Heart sounds: normal: S1, S2 Abnormal Heart Sounds: Absent: systolic murmur, diastolic murmur - Gastrointestinal General gastrointestinal: Present: normal bowel sounds, soft. Absent: distended , organomegaly, tenderness - Genitourinary Genitourinary Comment(s): deferred - Integumentary Integumentary: Present: normal turgor. Absent: jaundiced, rash, ulcer - Neurologic Neurologic: Present: CNII-XII intact. Absent: focal deficits - Musculoskeletal Musculoskeletal: Present: gait normal, strength equal bilaterally - Psychiatric Psychiatric: Present: A&O x's 3, appropriate affect, intact judgment & insight - Labs CBC & Chem 7: 04/18/18 07:15 04/18/18 07:15 Labs: Abnormal Lab Results - Last 24 Hours (Table) 04/17/18 04/17/18 Range/Units 07:06 07:06 Plt Count 102 L (150-450) k/uL Chloride 112 H (98-107) mmol/L Glucose 70 L (74-99) mg/dL Microbiology - Last 24 Hours (Table) 04/16/18 23:33 Urine Culture - Preliminary Urine,Voided 04/14/18 18:47 Blood Culture Gram Stain - Preliminary Blood Blood Culture - Preliminary Coagulase Negative Staph 04/14/18 23:45 Urine Culture - Final Urine,Voided Assessment and Plan Assessment: 1. Mental status change; metabolic encephalopathy secondary to UTI - Patient remains on IV Unasyn 3 g every 6 hours - Urine culture is done and pending; will adjust antibiotic treatment according to culture results - Blood cultures are obtained and are pending - EEG is done and is negative for epileptiform focus; neurology is following 2. Coumadin toxicity - Patient was given oral vitamin K; Coumadin has been put on hold 3. Seizure disorder - EEG done in the hospital is negative for epileptiform focus; await further recommendations from neurology service 4. History of CVA/TIA with right hemiplegia; at baseline 5. Parkinson's disease; significant bradykinesia and rigidity - Neurology has increased dose of Sinemet; plan is to monitor closely for dyskinesias - Depakote level is ordered and is pending 6. History of cardiac murmur 7. DVT prophylaxis CODE STATUS; full code Time with Patient: Greater than 30
--- NOTE | 2018-04-18 12:31 | P.PN ---
Subjective Progress Note Date: 04/18/18 Principal diagnosis: Mental status change possibly secondary to UTI; coagulopathy secondary to Coumadin Gram-positive bacteremia; possibly contamination 53 her old female patient history of CVA, Parkinson's disease and seizure disorder admitted to the hospital with mental status change and elevated PT/INR ; patient was found to have UTI and is admitted for further treatment 04/17/2018 Patient is seen and evaluated in the room at bedside; patient is more awake and alert today; Parkinson's medications have been adjusted by neurology without any obvious side effects; patient has been switched to pured diet due to trouble swallowing; neurology recommending adjusting Depakote dose and monitoring LFTs; bradykinesia is somewhat improved with higher dose of Sinemet; patient's EEG remains unremarkable for seizure activity 04/18/2018 Patient remains significantly awake and alert; does try to hold conversation; however Depakote has been adjusted along with Sinemet by neurology service. Patient's blood culture did come back positive with staph; IDs following and recommending no change in antibiotics due to possible contamination; repeat blood cultures are negative thus far ; patient's urine culture has been negative but continues to have urinary symptoms; ID recommending to continue Unasyn for cystitis to complete 3 days of treatment Objective - Vital Signs Vital signs: Vital Signs Temp 97.6 F 04/18/18 07:53 Pulse 57 L 04/18/18 08:10 Resp 18 04/18/18 08:10 BP 120/57 04/18/18 07:53 Pulse Ox 91 L 04/18/18 07:53 Intake & Output 04/17/18 04/18/18 04/18/18 18:59 06:59 18:59 Intake Total 240 200 Balance 240 200 Weight 110 kg Intake: IV 240 200 Ampicillin-Sulbactam 3 gm 100 200 In Sodium Chloride 0.9% 100 ml @ 100 mls/hr IVPB Q6HR [facility] Rx#:[id number] ns@20 140 Other: Voiding Method Diaper Diaper Diaper Incontinent Incontinent Incontinent # Voids 2 - Exam - Constitutional General appearance: Present: average body habitus, cooperative, no acute distress - EENT Eyes: Present: anicteric sclerae, EOMI, PERRLA, normal appearance ENT: Present: hearing grossly normal, normal oropharynx Ears: bilateral: normal - Neck Neck: Present: normal ROM. Absent: lymphadenopathy, rigidity, thyromegaly Carotids: negative: bruit present Thyroid: bilateral: normal size, negative: enlarged, nodule - Respiratory Respiratory: bilateral: CTA, negative: rales, rhonchi, wheezing - Cardiovascular Rhythm: regular Heart sounds: normal: S1, S2 Abnormal Heart Sounds: Absent: systolic murmur, diastolic murmur - Gastrointestinal General gastrointestinal: Present: normal bowel sounds, soft. Absent: distended , organomegaly, tenderness - Genitourinary Genitourinary Comment(s): deferred - Integumentary Integumentary: Present: normal turgor. Absent: jaundiced, rash, ulcer - Neurologic Neurologic: Present: CNII-XII intact. Absent: focal deficits - Musculoskeletal Musculoskeletal: Present: gait normal, strength equal bilaterally - Psychiatric Psychiatric: Present: A&O x's 3, appropriate affect, intact judgment & insight - Labs CBC & Chem 7: 04/18/18 07:15 04/18/18 07:15 Labs: Abnormal Lab Results - Last 24 Hours (Table) 04/17/18 04/18/18 04/18/18 Range/Units 07:06 07:15 07:15 Plt Count 106 L (150-450) k/uL Chloride 112 H (98-107) mmol/L Glucose 73 L (74-99) mg/dL AST 42 H (14-36) U/L Microbiology - Last 24 Hours (Table) 04/14/18 18:47 Blood Culture Gram Stain - Final Blood Blood Culture - Final Staphylococcus lugdunenisis 04/16/18 23:33 Urine Culture - Preliminary Urine,Voided Assessment and Plan Assessment: 1. Gram-positive bacteremia ; - IDs following and recommending no antibiotic treatment for possibility of contamination - Blood cultures have been repeated and have been negative thus far 2. Mental status change; metabolic encephalopathy secondary to UTI - Patient remains on IV Unasyn 3 g every 6 hours - Urine culture is done and pending; will adjust antibiotic treatment according to culture results - Blood cultures are obtained and are pending - EEG is done and is negative for epileptiform focus; neurology is following 3. Coumadin toxicity - Patient was given oral vitamin K; Coumadin has been put on hold 3. Seizure disorder - EEG done in the hospital is negative for epileptiform focus; await further recommendations from neurology service 4. History of CVA/TIA with right hemiplegia; at baseline 5. Parkinson's disease; significant bradykinesia and rigidity - Neurology has increased dose of Sinemet; plan is to monitor closely for dyskinesias - Depakote level is ordered and is pending 6. History of cardiac murmur 7. DVT prophylaxis CODE STATUS; full code Time with Patient: Greater than 30
[2018-04-18] MEDS ORDERED: DIVALPROEX 250 MG TABLET.DR PO SCH (13:00)
--- NOTE | 2018-04-18 13:57 | P.PN ---
Subjective The patient is a 53-year-old woman with history of Parkinson's disease and seizure disorder who was recently hospitalized and readmitted with sepsis and altered mental status. She has been treated for UTI. She is more alert today. Her Parkinson' medication has been adjusted. The patient is more alert. Underlying baseline mental status is unknown. At times the patient seems to respond to questions and at other times he seems to ignore them. She is able to answer questions and follow commands. She is still having bradykinesia. Her swallowing is improved. She has not had any breakthrough seizures. A repeat Depakote level is to be drawn tomorrow. Depakote was adjusted due to elevated LFTs. Objective - Vital Signs Vital signs: Vital Signs Temp 97.6 F 04/18/18 07:53 Pulse 57 L 04/18/18 08:10 Resp 18 04/18/18 08:10 BP 120/57 04/18/18 07:53 Pulse Ox 91 L 04/18/18 07:53 Intake & Output 04/17/18 04/18/18 04/18/18 18:59 06:59 18:59 Intake Total 240 200 Balance 240 200 Weight 110 kg Intake: IV 240 200 Ampicillin-Sulbactam 3 gm 100 200 In Sodium Chloride 0.9% 100 ml @ 100 mls/hr IVPB Q6HR [facility] Rx#:[id number] ns@20 140 Other: Voiding Method Diaper Diaper Diaper Incontinent Incontinent Incontinent # Voids 2 - Constitutional General appearance: Present: obese - EENT Eyes: Present: PERRLA ENT: Present: hearing grossly normal - Respiratory Respiratory: bilateral: CTA - Neurologic Neurologic Comment(s): Neurologic examination: Mental status: She was awake she was alert. She was oriented to person and place. She was able to repeat sentences. She had no specific complaints except for sore throat. Next Cranial nerves II through XII: There is no facial asymmetry. Pupils were equal and reactive. X Motor examination: The patient had general weakness. - Labs CBC & Chem 7: 04/18/18 07:15 04/18/18 07:15 Labs: Abnormal Lab Results - Last 24 Hours (Table) 04/17/18 04/18/18 04/18/18 Range/Units 07:06 07:15 07:15 Plt Count 106 L (150-450) k/uL Chloride 112 H (98-107) mmol/L Glucose 73 L (74-99) mg/dL AST 42 H (14-36) U/L Microbiology - Last 24 Hours (Table) 04/14/18 18:47 Blood Culture Gram Stain - Final Blood Blood Culture - Final Staphylococcus lugdunenisis 04/16/18 23:33 Urine Culture - Preliminary Urine,Voided Assessment and Plan (1) Altered mental status Current Visit: Yes Status: Acute SNOMED Code(s): 287627804 (2) Parkinson disease Current Visit: Yes Status: Chronic SNOMED Code(s): 29818036 (3) History of seizures Current Visit: Yes Status: Chronic Code(s): Z87.898 - PERSONAL HISTORY OF OTHER SPECIFIED CONDITIONS SNOMED Code(s): 333396223 (4) UTI (urinary tract infection) Current Visit: Yes Status: Acute SNOMED Code(s): 01676239 Plan: The patient is a 53-year-old woman with Parkinson's disease and seizure disorder. She is admitted to the hospital with UTI and sepsis and altered mental status. Her Sinemet dose was adjusted and she seems to be improving. She has a past history of stroke. CT of the brain shows cerebral atrophy and mild hydrocephalus without obstruction. Plan is to repeat Depakote level and adjust Depakote accordingly.
[2018-04-18] MEDS: DIVALPROEX 250 MG TABLET.DR PO SCH (15:00)
[2018-04-18] MEDS: ATORVASTATIN 40 MG TAB PO SCH (20:17)
[2018-04-19] MEDS: AMPICILLIN-SULBACTAM 3 GM in SODIUM CHLORIDE 0.9% 100 ML IVPB SCH ×5 (00:55→23:17)
[2018-04-19 05:36] LABS: Glucose,Whole Blood 69 mg/dL (75-99)
[2018-04-19 05:54] LABS: Glucose,Whole Blood 56 mg/dL (75-99)
[2018-04-19] MEDS ORDERED: DEXTROSE 50%-WATER 50 ML SYRINGE IVP ONE (06:06)
[2018-04-19] MEDS ORDERED: DEXTROSE 5% IN WATER 1,000 ML IV SCH (06:30)
[2018-04-19 06:45] LABS: Glucose,Whole Blood 156 mg/dL (75-99)
[2018-04-19] MEDS: HEPARIN SODIUM,PORCINE 5,000 UNIT/ML 1 ML VIAL SQ SCH ×2 (07:34→22:04)
[2018-04-19] MEDS: CARBIDOPA-LEVODOPA 25-100 MG 1 EACH TAB PO SCH ×3 (07:35→18:14)
[2018-04-19] MEDS: PROPRANOLOL 20 MG TAB PO SCH (07:35)
[2018-04-19] MEDS: PANTOPRAZOLE 40 MG TABLET PO SCH (07:35)
[2018-04-19] MEDS: DIVALPROEX 500 MG TABLET.DR PO SCH ×2 (07:35→22:03)
[2018-04-19 08:18] LABS: Anion Gap 6 mmol/L; Calcium 9.2 mg/dL (8.4-10.2); Carbon Dioxide 25 mmol/L (22-30); Chloride 109 mmol/L (98-107); Glucose 111 mg/dL (74-99); Sodium 140 mmol/L (137-145)
[2018-04-19 08:23] LABS: Valproic Acid (Depakene) 87.1 ug/mL
[2018-04-19 08:27] LABS: Blood Urea Nitrogen 10 mg/dL (7-17); Potassium 4.3 mmol/L (3.5-5.1)
[2018-04-19 08:28] LABS: ALT 28 U/L (9-52); AST 35 U/L (14-36)
[2018-04-19 09:56] LABS: HCT 40.3 % (34.0-46.0); HGB 12.9 gm/dL (11.4-16.0); MCH 30.9 pg (25.0-35.0); MCHC 32.1 g/dL (31.0-37.0); MCV 96.3 fL (80.0-100.0); Mean Platelet Volume 7.9; Platelet Count 95 k/uL (150-450); RBC 4.18 m/uL (3.80-5.40); RDW 14.3 % (11.5-15.5); WBC 6.4 k/uL (3.8-10.6)
[2018-04-19 10:11] LABS: Lymphocytes # (M) 3.65 k/uL (1.0-4.8); Monocytes # (M) 0.45 k/uL (0-1.0); Neutrophils % (M) 36 %; Nucleated Red Blood Cells 0 /100 WBC (0-0); Polychromasia Present; Total Cells Counted 100
[2018-04-19 11:43] LABS: Glucose,Whole Blood 91 mg/dL (75-99)
[2018-04-19] MEDS: DIVALPROEX 250 MG TABLET.DR PO SCH (14:47)
[2018-04-19 16:33] LABS: Glucose,Whole Blood 94 mg/dL (75-99)
[2018-04-19 19:48] LABS: INR 1.1 (<1.2); Prothrombin Time 11.1 sec (9.0-12.0)
[2018-04-19 20:19] LABS: Glucose,Whole Blood 129 mg/dL (75-99)
[2018-04-19] MEDS: WARFARIN 5 MG TAB PO SCH (22:03)
[2018-04-19] MEDS: ATORVASTATIN 40 MG TAB PO SCH (22:04)
[2018-04-19] MEDS: HYDROcodone/APAP 5-325MG 1 EACH TAB PO PRN (22:19)
--- NOTE | 2018-04-19 22:19 | PN ---
PROGRESS NOTE DATE OF SERVICE: 04/19/2018. INTERVAL HISTORY: This 53-year-old woman was admitted with change in mental status post UTI and sepsis. Also headache Coumadin coagulopathy. No chest pain. No palpitations. No fever. The patient also had a staph lugdunensis from the blood culture and urine culture showed Ene. The patient being closely monitored at this time. PAST MEDICAL HISTORY: REVIEWED. REVIEW OF SYSTEMS: Could not be taken. CURRENT MEDICATIONS ARE: Reviewed and include: 1. Bradford 5 mg q.4h p.r.n. 2. Unasyn 3 g IV daily. 3. Lipitor. 4. Sinemet 25/100. 5. Depakote. 6. Heparin. 7. Advil. 8. Inderal. 10.Coumadin. PHYSICAL EXAM: Patient is stuporous, arousable. Otherwise confused. Pulse is 42, blood pressure 109/56, respiration 18, temperature 97.6, pulse ox 94% on 1 L. HEENT: Conjunctivae normal. Oral mucosa moist. Neck is no jugular venous distention. No carotid bruit. No lymph node enlargement. Cardiovascular: S1, S2 muffled. Respiratory: Breath sounds diminished in the bases. Few rhonchi. No crackles. ABDOMEN: Soft. Nontender. LEGS: No edema. No swelling. Central nervous system: Diffusely weak. LABS: CBC within normal limits. Cultures are noted. ASSESSMENT: 1. Change in mental status, possible urinary tract infection with sepsis with possible Ene. 2. Blood culture showing Staph lugdunensis. 3. Coumadin coagulopathy, improved. 4. Seizure disorder. 5. History of cerebrovascular accident, transient ischemic attack. 6. History of Parkinson's. 7. Gait dysfunction. 8. History of cardiac murmurs. 9. History of cerebrovascular accident. 10.Right hemiplegia. 11.Cholecystectomy. 12.History of nephrolithiasis. 13.Remote history of nicotine dependence. RECOMMENDATIONS AND DISCUSSION: Recommend to continue current medications, management and symptomatic treatment. Otherwise, I recommend currently continue the antibiotics, Coumadin 5 mg. PT/ INR closely. Neurology and Infectious Disease has seen the patient. Guarded prognosis because of multiple complex medical issues. Further recommendations to follow. 2D echo is also ordered. Repeat cultures are pending at this time. Further recommendations to follow. Evaluate 2D echo reports. MMODL / IJN: [id number] / NITHYA
[2018-04-20 00:46] LABS: Glucose,Whole Blood 105 mg/dL (75-99)
[2018-04-20 03:25] LABS: Glucose,Whole Blood 67 mg/dL (75-99)
[2018-04-20 03:43] LABS: Glucose,Whole Blood 92 mg/dL (75-99)
[2018-04-20 04:55] LABS: Glucose,Whole Blood 82 mg/dL (75-99)
[2018-04-20] MEDS: AMPICILLIN-SULBACTAM 3 GM in SODIUM CHLORIDE 0.9% 100 ML IVPB SCH ×3 (05:22→18:20)
[2018-04-20 05:55] LABS: Basophils % (A) 0 %; Eosinophils % (A) 0 %; HCT 38.7 % (34.0-46.0); HGB 12.6 gm/dL (11.4-16.0); INR 1.2 (<1.2); Lymphocytes # (A) 3.4 k/uL (1.0-4.8); Lymphocytes % (A) 60 %; MCH 31.2 pg (25.0-35.0); MCHC 32.7 g/dL (31.0-37.0); MCV 95.5 fL (80.0-100.0); Mean Platelet Volume 8.2; Monocytes # (A) 0.4 k/uL (0-1.0); Monocytes % (A) 6 %; Neutrophils # (A) 1.8 k/uL (1.3-7.7); Neutrophils % (A) 32 %; Platelet Count 120 k/uL (150-450); Prothrombin Time 11.1 sec (9.0-12.0); RBC 4.05 m/uL (3.80-5.40); RDW 14.3 % (11.5-15.5); WBC 5.7 k/uL (3.8-10.6)
[2018-04-20 06:00] LABS: Anion Gap 6 mmol/L; Blood Urea Nitrogen 6 mg/dL (7-17); Carbon Dioxide 29 mmol/L (22-30); Chloride 106 mmol/L (98-107); Glucose 108 mg/dL (74-99); Potassium 3.7 mmol/L (3.5-5.1); Sodium 141 mmol/L (137-145)
[2018-04-20 06:27] LABS: Poikilocytosis (M) Present
[2018-04-20] MEDS: PANTOPRAZOLE 40 MG TABLET PO SCH (08:07)
[2018-04-20] MEDS: CARBIDOPA-LEVODOPA 25-100 MG 1 EACH TAB PO SCH ×3 (08:07→17:46)
[2018-04-20] MEDS: DIVALPROEX 500 MG TABLET.DR PO SCH ×2 (08:08→21:50)
[2018-04-20] MEDS: HEPARIN SODIUM,PORCINE 5,000 UNIT/ML 1 ML VIAL SQ SCH ×2 (08:08→21:50)
[2018-04-20] MEDS: PROPRANOLOL 20 MG TAB PO SCH (08:09)
[2018-04-20 08:10] LABS: Glucose,Whole Blood 107 mg/dL (75-99)
--- NOTE | 2018-04-20 10:54 | ECHOF ---
Referral Reason:sepsis MEASUREMENTS -------- HEIGHT: 170.2 cm WEIGHT: 108.9 kg BP: 106/58 RVIDd: 2.1 cm (< 3.3) IVSd: 1.2 cm (0.6 - 1.1) LVIDd: 4.1 cm (3.9 - 5.3) LVPWd: 1.3 cm (0.6 - 1.1) IVSs: 1.5 cm LVIDs: 3.4 cm LVPWs: 1.2 cm LA Diam: 3.2 cm (2.7 - 3.8) Ao Diam: 3.7 cm (2.0 - 3.7) AV Cusp: 2.3 cm (1.5 - 2.6) LA Diam: 3.1 cm (2.7 - 3.8) MV EXCURSION: 22.907 mm (> 18.000) MV EF SLOPE: 75 mm/s (70 - 150) EPSS: 0.5 cm MV E Naveed: 0.74 m/s MV DecT: 208 ms MV A Naveed: 0.58 m/s MV E/A Ratio: 1.29 RAP: 5.00 mmHg RVSP: 13.22 mmHg FINDINGS -------- Sinus rhythm. This was a technically adequate study. The left ventricular size is normal. There is mild concentric left ventricular hypertrophy. Overa ll left ventricular systolic function is normal with, an EF between 55 - 60 %. The right ventricle is normal in size. The left atrial size is normal. The right atrial size is normal. There is mild aortic valve sclerosis. There is no evidence of aortic regurgitation. Mild mitral annular calcification present. Mild mitral regurgitation is present. Mild tricuspid regurgitation present. There is no evidence of pulmonary hypertension. The right v entricular systolic pressure, as measured by Doppler, is 13.22mmHg. The pulmonic valve was not well visualized. The aortic root size is normal. Echo free space represents a pericardial fat pad. CONCLUSIONS -------- 1. The left ventricular size is normal. 2. There is mild concentric left ventricular hypertrophy. 3. Overall left ventricular systolic function is normal with, an EF between 55 - 60 %. 4. The right ventricle is normal in size. 5. The left atrial size is normal. 6. The right atrial size is normal. 7. There is mild aortic valve sclerosis. 8. Mild mitral annular calcification present. 9. Mild mitral regurgitation is present. 10. Mild tricuspid regurgitation present. 11. There is no evidence of pulmonary hypertension. 12. The right ventricular systolic pressure, as measured by Doppler, is 13.22mmHg. 13. The pulmonic valve was not well visualized. 14. The aortic root size is normal. 15. Echo free space represents a pericardial fat pad. PERSONAL CONSULTANT: Shari Ford RDCS
[2018-04-20 11:22] LABS: Glucose,Whole Blood 91 mg/dL (75-99)
[2018-04-20 11:54] LABS: Hemoglobin A1C 5.7 % (4.0-6.0)
[2018-04-20] MEDS: DIVALPROEX 250 MG TABLET.DR PO SCH (14:34)
--- NOTE | 2018-04-20 16:23 | PN ---
PROGRESS NOTE DATE OF SERVICE: 04/20/2018 This 53-year-old woman was admitted with features of change in mental status, also had features of sepsis also. The most recent cultures are negative. A 2D echo with Doppler showed ejection fraction about 50-60% and mild valvular abnormalities. No chest pain. No palpitations. No fever. PHYSICAL EXAM: Alert and oriented x1. Pulse 56, blood pressure 109/50, respiration 18, temperature 97.2, pulse ox 98% on room air. HEENT: Conjunctivae normal. Oral mucosa moist. NECK: No jugular venous distention. No carotid bruit. No lymph node enlargement. CARDIOVASCULAR: S1, S2 muffled. No S3, no S4. RESPIRATORY: Breath sounds diminished in the bases. ABDOMEN: Soft, nontender. LEGS: No edema, no swelling. NERVOUS SYSTEM: Higher function as mentioned. Moves all four limbs. No focal deficits. LYMPHATIC: No lymphadenopathy in the neck, axillae, groin. SKIN: No ulcer, rash, bleeding. LABS: WBC 5.7. Otherwise, INR is 1.2. ASSESSMENT: 1. Change in mental status, possible urinary tract infection with sepsis with Ene. 2. Blood culture showing Staph lugdunensis. 3. Coumadin coagulopathy, improved. 4. Seizure disorder. 5. History of cerebrovascular accident, transient ischemic attack. 6. History of Parkinson's. 7. History of gait dysfunction. 8. History of cardiac murmur. 9. History of cerebrovascular accident. 10.Right hemiplegia. 11.History of cholecystectomy. 12.History of nephrolithiasis. 13.Remote history of nicotine dependence. RECOMMENDATIONS AND DISCUSSION: I recommend to continue current management and symptomatic treatment. Otherwise TSH, continue with IV antibiotics. Infectious Disease is following the patient closely. Repeat blood cultures are noted and further recommendations to follow. MMODL / IJN: [id number] /
[2018-04-20 16:56] LABS: Glucose,Whole Blood 105 mg/dL (75-99)
[2018-04-20] MEDS ORDERED: WARFARIN 3 MG TAB PO SCH (17:00)
[2018-04-20 17:09] LABS: T4, Free (Free Thyroxine) 1.94 ng/dL (0.78-2.19)
[2018-04-20 20:05] LABS: Glucose,Whole Blood 126 mg/dL (75-99)
[2018-04-20 21:29] VITALS: RESP 16
[2018-04-20] MEDS: ATORVASTATIN 40 MG TAB PO SCH (21:51)
[2018-04-20] MEDS: WARFARIN 5 MG TAB PO SCH (21:51)
--- NOTE | 2018-04-20 22:48 | P.PN ---
Subjective Progress Note Date: 04/20/18 This is a 53-year-old female patient who is currently residing at [facility] with past history of Parkinson's and seizure disorder along with CVA. Patient was recently hospitalized April 07 through April 10 and treated for metabolic encephalopathy secondary to a Proteus urinary tract infection and discharged on Bactrim. She was also treated for hypercoagulopathy and was to return back on Coumadin once her INR was 2-3. At the time of discharge her INR was 2.6. She was resumed back on Coumadin at the assisted on April 10. She was discharged on Bactrim DS twice daily for a 10 day course which was continued at the assisted. Patient was brought into [facility] emergency center on April 14 for acute mental status changes. She was found to be afebrile with white count of 6, creatinine 0.97, INR is greater than 10, valproic acid was normal limits. Urinalysis was clear with ketones 1+ , blood small, leukoesterase moderate, nitrate negative, RBCs 41 and WBC is 25. Blood culture and urine culture are status received. CAT scan of the brain showed cerebral atrophy with chronic small vessel ischemic change, mild hydrocephalus with no change from review this. Patient was given dose of vitamin K, started on Unasyn and admitted to the selective care unit. Patient has been seen in consultation by Dr. Pulliam and her Sinemet dose has been increased. EEG is pending. Patient is unable to provide full story but is able to answer simple questions. 04/17/2018 the patient is doing somewhat better. She seems to be comfortable and voices no complaints. No evidence of active bleeding. 04/20/2018 patient is feeling better. She is eating her meal without difficulties. She relates that she is without discomfort, she is more awake alert and interactive than she's been on any evaluation so far. She's been seen by neurology and some alteration of her medications has occurred. Objective - Vital Signs Vital signs: Vital Signs Temp 98.6 F 04/20/18 20:50 Pulse 73 04/20/18 21:07 Resp 16 04/20/18 20:50 BP 100/67 04/20/18 21:07 Pulse Ox 90 L 04/20/18 20:50 Intake & Output 04/20/18 04/20/18 04/21/18 06:59 18:59 06:59 Intake Total 1000 510 Balance 1000 510 Weight 109 kg 109 kg Intake: IV 10 Ampicillin-Sulbactam 3 gm 10 In Sodium Chloride 0.9% 100 ml @ 100 mls/hr IVPB Q6HR [facility] Rx#:[id number] Intake, IV Titration 100 Amount Ampicillin-Sulbactam 3 gm 100 In Sodium Chloride 0.9% 100 ml @ 100 mls/hr IVPB Q6HR [facility] Rx#:[id number] Oral 990 410 Other: Voiding Method Diaper Diaper Incontinent Incontinent # Voids 1 3 2 - Exam Gen: This is a 53-year-old obese female patient. She is sitting up in bed and appears to be comfortable. No acute respiratory distress is noted. HEENT: Head is atraumatic, normocephalic. Pupils equal, round. Sclerae is anicteric. Conjunctiva pink. Oral mucous membranes are dry. Masklike face. NECK: Supple. No JVD. No lymphadenopathy. No thyromegaly. LUNGS: Diminished but otherwise Clear to auscultation. No wheezes or rhonchi. No intercostal retractions. HEART: Regular rate and rhythm. No murmur. ABDOMEN: Soft. Bowel sounds are present. No masses. No tenderness. No suprapubic tenderness. No CVA tenderness bilaterally. EXTREMITIES: No pedal edema. No calf tenderness. NEUROLOGICAL: Patient is awake, alert and oriented [address] Generalized weakness noted. Speech is hypophonic. - Labs CBC & Chem 7: 04/20/18 05:18 04/20/18 05:18 Labs: Abnormal Lab Results - Last 24 Hours (Table) 04/20/18 04/20/18 04/20/18 Range/Units 00:45 03:22 05:18 Plt Count 120 L (150-450) k/uL INR (<1.2) BUN (7-17) mg/dL Glucose (74-99) mg/dL POC Glucose (mg/dL) 105 H 67 L (75-99) mg/dL TSH (0.465-4.680) mIU/L 04/20/18 04/20/18 04/20/18 Range/Units 05:18 05:18 08:08 Plt Count (150-450) k/uL INR 1.2 H (<1.2) BUN 6 L (7-17) mg/dL Glucose 108 H (74-99) mg/dL POC Glucose (mg/dL) 107 H (75-99) mg/dL TSH (0.465-4.680) mIU/L 04/20/18 04/20/18 04/20/18 Range/Units 08:15 16:53 20:04 Plt Count (150-450) k/uL INR (<1.2) BUN (7-17) mg/dL Glucose (74-99) mg/dL POC Glucose (mg/dL) 105 H 126 H (75-99) mg/dL TSH 6.010 H (0.465-4.680) mIU/L Laboratory Results WBC 5.7 k/uL (3.8-10.6) 04/20/18 05:18 RBC 4.05 m/uL (3.80-5.40) 04/20/18 05:18 Hgb 12.6 gm/dL (11.4-16.0) 04/20/18 05:18 Hct 38.7 % (34.0-46.0) 04/20/18 05:18 MCV 95.5 fL (80.0-100.0) 04/20/18 05:18 MCH 31.2 pg (25.0-35.0) 04/20/18 05:18 MCHC 32.7 g/dL (31.0-37.0) 04/20/18 05:18 RDW 14.3 % (11.5-15.5) 04/20/18 05:18 Plt Count 120 k/uL (150-450) L 04/20/18 05:18 Neutrophils % 32 % 04/20/18 05:18 Neutrophils % (Manual) 36 % 04/19/18 09:31 Lymphocytes % 60 % 04/20/18 05:18 Lymphocytes % (Manual) 57 % 04/19/18 09:31 Monocytes % 6 % 04/20/18 05:18 Monocytes % (Manual) 7 % 04/19/18 09:31 Eosinophils % 0 % 04/20/18 05:18 Basophils % 0 % 04/20/18 05:18 Neutrophils # 1.8 k/uL (1.3-7.7) 04/20/18 05:18 Neutrophils # (Manual) 2.30 k/uL (1.3-7.7) 04/19/18 09:31 Lymphocytes # 3.4 k/uL (1.0-4.8) 04/20/18 05:18 Lymphocytes # (Manual) 3.65 k/uL (1.0-4.8) 04/19/18 09:31 Monocytes # 0.4 k/uL (0-1.0) 04/20/18 05:18 Monocytes # (Manual) 0.45 k/uL (0-1.0) 04/19/18 09:31 Eosinophils # 0.0 k/uL (0-0.7) 04/20/18 05:18 Basophils # 0.0 k/uL (0-0.2) 04/20/18 05:18 Nucleated RBCs 0 /100 WBC (0-0) 04/19/18 09:31 Manual Slide Review Performed 04/20/18 05:18 Polychromasia Present 04/19/18 09:31 Poikilocytosis (manual Present 04/20/18 05:18 PT 11.1 sec (9.0-12.0) 04/20/18 05:18 INR 1.2 (<1.2) H 04/20/18 05:18 APTT 39.5 sec (22.0-30.0) H 04/14/18 14:30 Sodium 141 mmol/L (137-145) 04/20/18 05:18 Potassium 3.7 mmol/L (3.5-5.1) 04/20/18 05:18 Chloride 106 mmol/L (98-107) 04/20/18 05:18 Carbon Dioxide 29 mmol/L (22-30) 04/20/18 05:18 Anion Gap 6 mmol/L 04/20/18 05:18 BUN 6 mg/dL (7-17) L 04/20/18 05:18 Creatinine 0.69 mg/dL (0.52-1.04) 04/20/18 05:18 Est GFR (CKD-EPI)AfAm >90 (>60 ml/min/1.73 sqM) 04/20/18 05:18 Est GFR (CKD-EPI)NonAf >90 (>60 ml/min/1.73 sqM) 04/20/18 05:18 Glucose 108 mg/dL (74-99) H 04/20/18 05:18 POC Glucose (mg/dL) 126 mg/dL (75-99) H 04/20/18 20:04 POC [employer] Danni Treviño 04/20/18 20:[address] Glu mg/dL 117 04/18/18 07:15 Hemoglobin A1c 5.7 % (4.0-6.0) 04/18/18 07:15 Calcium 9.0 mg/dL (8.4-10.2) 04/20/18 05:18 Phosphorus 3.4 mg/dL (2.5-4.5) 04/14/18 14:30 Total Bilirubin 0.3 mg/dL (0.2-1.3) 04/14/18 14:30 AST 35 U/L (14-36) 04/19/18 07:16 ALT 28 U/L (9-52) 04/19/18 07:16 Alkaline Phosphatase 81 U/L (38-126) 04/14/18 14:30 Total Protein 7.1 g/dL (6.3-8.2) 04/14/18 14:30 Albumin 3.8 g/dL (3.5-5.0) 04/14/18 14:30 TSH 6.010 mIU/L (0.465-4.680) H 04/20/18 08:15 Free T4 1.94 ng/dL (0.78-2.19) 04/20/18 08:15 Urine Color Yellow 04/14/18 23:45 Urine Appearance Clear (Clear) 04/14/18 23:45 Urine pH 6.5 (5.0-8.0) 04/14/18 23:45 Ur Specific [place] 1.020 (1.001-1.035) 04/14/18 23:45 Urine Protein Trace (Negative) H 04/14/18 23:45 Urine Glucose (UA) Negative (Negative) 04/14/18 23:45 Urine Ketones 1+ (Negative) H 04/14/18 23:45 Urine Blood Small (Negative) H 04/14/18 23:45 Urine Nitrite Negative (Negative) 04/14/18 23:45 Urine Bilirubin Negative (Negative) 04/14/18 23:45 Urine Urobilinogen 2.0 mg/dL (<2.0) 04/14/18 23:45 Ur Leukocyte Esterase Moderate (Negative) H 04/14/18 23:45 Urine RBC 41 /hpf (0-5) H 04/14/18 23:45 Urine WBC 25 /hpf (0-5) H 04/14/18 23:45 Urine Mucus Rare /hpf (None) H 04/14/18 23:45 Valproic Acid 87.1 ug/mL 04/19/18 07:16 Microbiology 04/16/18 23:33 Urine,Voided Urine Culture - Final Ene albicans Ene sp,not albicans/galbr 04/14/18 18:47 Blood Blood Culture Gram Stain - Final 04/14/18 18:47 Blood Blood Culture - Final Staphylococcus lugdunenisis 04/14/18 23:45 Urine,Voided Urine Culture - Final 04/14/18 18:47 Blood Blood Culture - Final - Imaging and Cardiology Chest x-ray: report reviewed (No new infiltrate) Echocardiogram with normal systolic function, no evidence of any pulmonary hypertension or severe valvular disease. Assessment and Plan (1) Altered mental status Current Visit: Yes Status: Acute Code(s): R41.82 - ALTERED MENTAL STATUS, UNSPECIFIED SNOMED Code(s): 376659690 (2) Coagulopathy Current Visit: Yes Status: Acute Code(s): D68.9 - COAGULATION DEFECT, UNSPECIFIED SNOMED Code(s): 37378220 (3) Bacteremia due to Gram-positive bacteria Narrative/Plan: 53-year-old female who has profound cognitive dysfunction is comfortable at this time. As noted was admitted to hospital with evidence of an INR of greater than 10 fortunately without great amounts of bleeding. Antibiotic therapy was with Bactrim which likely interacted with her Coumadin. She now presents with likely ongoing sepsis from urinary tract invasive her prior cultures which were of Proteus and E. coli, antibiotic therapy with ampicillin and sulbactam is being utilized. Cultures are pending as are blood cultures. Once cultures are available within be able to better clarify the plan that she will need for use of the time of discharge. Fortunately this time she is quite comfortable, she is not having high-grade fevers, and is hemodynamically stable. The follow-up INR has been requested and her hemoconcentration has improved since she has been hydrated with admission. 04/17/2018 the patient is stable. Blood culture showing evidence of colitis negative staph is a contamination and needs no further intervention. She does not seem to have urinary symptoms but had likely some cystitis would like to limit her ampicillin sulbactam to 3 days of treatment. Follow blood cultures are negative. Unclear if she has attained her baseline mental status. She is comfortable today and the nursing staff relates that she has eaten well. 04/20/2018 the patient has had further improvement. He has noted the blood culture was a contamination with a coagulase-negative staph and does not require further intervention. Urine culture earlier in her stay was negative, follow-up urinalysis is markedly improved from the prior urinalysis. The follow-up urine culture is contaminated and several species of yeast and then found likely from vaginal radha. It is 10 the patient does not relate to urinary symptoms. She has no tenderness over her bladder or her flanks. The patient did have a cystitis admission that has now been treated with Unasyn and this may be discontinued. It is noted she remains afebrile and does not have leukocytosis. Current Visit: Yes Status: Acute Code(s): R78.81 - BACTEREMIA SNOMED Code( s): 511772226164
[2018-04-21] MEDS: AMPICILLIN-SULBACTAM 3 GM in SODIUM CHLORIDE 0.9% 100 ML IVPB SCH ×3 (00:37→12:44)
[2018-04-21] MEDS: HYDROcodone/APAP 5-325MG 1 EACH TAB PO PRN (00:42)
[2018-04-21 01:35] LABS: Glucose,Whole Blood 117 mg/dL (75-99)
[2018-04-21 04:38] LABS: Glucose,Whole Blood 86 mg/dL (75-99)
[2018-04-21 05:29] VITALS: BP 94/63; PULSE 58; TEMP 98.2
[2018-04-21 07:08] LABS: Glucose,Whole Blood 77 mg/dL (75-99)
[2018-04-21] MEDS: DIVALPROEX 500 MG TABLET.DR PO SCH (09:29)
[2018-04-21] MEDS: HEPARIN SODIUM,PORCINE 5,000 UNIT/ML 1 ML VIAL SQ SCH (09:30)
[2018-04-21] MEDS: PANTOPRAZOLE 40 MG TABLET PO SCH (09:30)
[2018-04-21] MEDS: CARBIDOPA-LEVODOPA 25-100 MG 1 EACH TAB PO SCH ×3 (09:30→17:15)
[2018-04-21] MEDS: PROPRANOLOL 20 MG TAB PO SCH (09:30)
[2018-04-21 11:23] LABS: Glucose,Whole Blood 77 mg/dL (75-99)
--- NOTE | 2018-04-21 14:50 | P.DS ---
Providers Date of admission: 04/14/18 15:48 Expected date of discharge: 04/21/18 Attending physician: Florencio Clark Consults: 04/14/18 17:54 Consult Physician Routine Consulting Provider: Mark Fisher Consult Reason/Comments: sepsis Do you want consulting provider notified?: Yes 04/14/18 17:55 Consult Physician Routine Consulting Provider: Gail Pulliam Consult Reason/Comments: confusion, old stroke Do you want consulting provider notified?: Yes Primary care physician: [facility] Course: Final diagnoses 1. Change in mental status, possible acute UTI with sepsis with Ene. Completed antibiotic therapy as per ID 2. Blood culture showing staph lugdunensis 3. Coumadin coagulopathy, improved 4. Seizure disorder Hospital course: This is a 53-year-old female admitted with change in mental status, features of sepsis, and multiple other medical issues. Brain CT reported cerebral atrophy, mild hydrocephalus without obstruction Evaluated by infectious disease, neurology. Received IV antibiotic therapy. Sinemet and Depakote dose adjusted. Significant clinical improvement. Patient has been cleared for discharge by all consults. Patient is being discharged to [facility] subacute rehab in stable condition with guarded prognosis. Exam General: Sitting up in bed, no acute distress. CV: S1, S2 muffled, no S3, no S4. LUNGS: Bilateral bases diminished. Nervous system: No focal deficits. The impression and plan of care has been dictated as directed. : I performed a history and examination of this patient, discussed the same with the dictator. I agree with the dictator's note ,documented as a scribe. Any additional findings or plans will be noted. Time taken: 35 minutes Patient Condition at Discharge: Stable Plan - Discharge Summary Discharge Rx Participant: No New Discharge Prescriptions: New Carbidopa-Levodopa 25-100 mg [Sinemet 25-100 mg] 1 each PO TID-W/MEALS tab Divalproex [Depakote] 250 mg PO 1400 tablet. Divalproex [Depakote] 500 mg PO BID@0800,2100 tablet. Ibuprofen [Advil] 200 mg PO DAILY PRN tab PRN Reason: Pain Pantoprazole [Protonix] 40 mg PO AC-BRKFST tablet. Continue Dicyclomine [Bentyl] 20 mg PO Q6H PRN PRN Reason: Gi Upset Bisacodyl 10 mg RECTAL DAILY PRN PRN Reason: Constipation Magnesium Hydroxide [Milk of Magnesia] 400 mg PO DAILY PRN PRN Reason: Constipation Na Phos,M-B/Na Phos,Di-Ba [Fleet Adult] 133 ml RECTAL ONCE PRN PRN Reason: Constipation Warfarin [Coumadin] 1 mg PO TUTHSA@1700 Warfarin [Coumadin] 3 mg PO SUMOWEFR@1700 Atorvastatin [Lipitor] 40 mg PO HS Propranolol [Inderal] 20 mg PO DAILY Benzocaine/Menthol Lozeng [Cepacol lozenge] 1 tab MUCOUS MEM Q4HR PRN PRN Reason: Sore Throat HYDROcodone/APAP 5-325MG [[place] 5-325] 1 tab PO Q4HR PRN #18 tab PRN Reason: Pain Discontinued Acetaminophen [Tylenol] 650 mg PO Q4H PRN PRN Reason: Fever And/ Or Pain Cyclobenzaprine [Flexeril] 10 mg PO BID PRN PRN Reason: MUSCLE SPASMS ALPRAZolam [Xanax] 0.25 mg PO TID@0800,1400,2000 diphenhydrAMINE [Benadryl] 25 mg PO HS PRN PRN Reason: Itching Divalproex [Depakote] 500 mg PO TID@0800,1400,2100 Famotidine [Pepcid] 20 mg PO BID@0700,1700 Amitriptyline HCl [Elavil] 25 mg PO HS Carbidopa-Levodopa 25-100 mg [Sinemet 25-100 mg] 0.5 tab PO BID@1230,1730 Sulfamethox-Tmp 800-160Mg [Bactrim DS 800-160 mg] 1 tab PO BID@0700,1700 Discharge Medication List Dicyclomine [Bentyl] 20 mg PO Q6H PRN 08/26/16 [History] Bisacodyl 10 mg RECTAL DAILY PRN 12/02/16 [History] Magnesium Hydroxide [Milk of Magnesia] 400 mg PO DAILY PRN 04/07/18 [History] Na Phos,M-B/Na Phos,Di-Ba [Fleet Adult] 133 ml RECTAL ONCE PRN 04/07/18 [History ] Warfarin [Coumadin] 1 mg PO TUTHSA@1700 04/07/18 [History] Warfarin [Coumadin] 3 mg PO SUMOWEFR@1700 04/07/18 [History] Atorvastatin [Lipitor] 40 mg PO HS 04/08/18 [History] Propranolol [Inderal] 20 mg PO DAILY 04/08/18 [History] Benzocaine/Menthol Lozeng [Cepacol lozenge] 1 tab MUCOUS MEM Q4HR PRN 04/14/18 [ History] Carbidopa-Levodopa 25-100 mg [Sinemet 25-100 mg] 1 each PO TID-W/MEALS tab [Rx] Divalproex [Depakote] 250 mg PO 1400 tablet. 04/21/18 [Rx] Divalproex [Depakote] 500 mg PO BID@0800,2100 tablet. 04/21/18 [Rx] HYDROcodone/APAP 5-325MG [[place] 5-325] 1 tab PO Q4HR PRN #18 tab 04/21/18 [Rx] Ibuprofen [Advil] 200 mg PO DAILY PRN tab 04/21/18 [Rx] Pantoprazole [Protonix] 40 mg PO AC-BRKFST tablet. 04/21/18 [Rx] Follow up Appointment(s)/Referral(s): Kris Stanley DO [Primary Care Provider] - 3 Days Gail Pulliam MD [STAFF PHYSICIAN] - 2 Weeks Activity/Diet/Wound Care/Special Instructions: [facility] MONTEMAYOR Antibx. completed as per ID PT/INR daily CBC, BMP in 3 days Diet: Cardiac Activity: As tolerated
[2018-04-21] MEDS: DIVALPROEX 250 MG TABLET.DR PO SCH (15:11)
[2018-04-21 15:20] VITALS: BMI 37.6
[2018-04-21] MEDS ORDERED: WARFARIN 1 MG TAB PO SCH (17:00)
--- NOTE | 2018-04-23 15:25 | CDI ---
Last Revision, August 2017 Documentation Clarification Form Date: 04/23/18 From: Mariana Clifford Cassandra Casas, [employer]obile Contract Clerk Hours-8:30 am & 5 pm Janis Admit Date: 04/14/2018 3:48:00 PM Patient Name: Mavis Marsh Visit Number: [id number] Discharge Date: 04/21/18 ATTENTION: The Clinical Documentation Specialists (CDI) and [facility] Coding Staff appreciate your assistance in clarifying documentation. Please respond to the clarification below the line at the bottom and electronically sign. The CDI & [facility] Coding staff will review the response and follow-up if needed. Please note: Queries are made part of the Legal Health Record. If you have any questions, please contact the author of this message via ITS. Dr. Florencio Clark Your patient has the documented diagnosis of possible acute UTI with sepsis with Piotr in your DS. Blood culture showing Staph lugdunensis. Recent Proteus UTI in early March. Treatment: IV Unasyn Please clarify and document your clinical opinion in the progress notes and discharge summary if any relationship (due to, caused by, secondary to) exists between these two diagnoses. Please include clinical findings supporting your diagnosis. Sepsis due to piotr Sepsis due to Staph lugdunensis Sepsis Other explanation of clinical findings (please specify) Unable to determine (no explanation for clinical findings) Please continue to document in your progress notes and discharge summary in order to capture severity of illness and risk of mortality. Include clinical findings that support your diagnosis. already done. Sepsis due to Staph lugdunensis MTDD
== END 2018-04-21 17:45 | DRG 871 ==
LOC: EC 13:33 → 6SEL 15:48 → 5MS5E 04-15 18:35
PROVIDERS: ADMIT Hospitalist; ATTEND Hospitalist
DX: A41.1 Sepsis due to other specified staphylococcus (principal); G93.41 Metabolic encephalopathy; B37.49 Other urogenital candidiasis; G91.9 Hydrocephalus, unspecified; I69.351 Hemiplegia and hemiparesis following cerebral infarction affecting right dominant side; D68.9 Coagulation defect, unspecified; G20 Parkinson's disease; R40.2142 Coma scale, eyes open, spontaneous, at arrival to emergency department; R40.2242 Coma scale, best verbal response, confused conversation, at arrival to emergency department; R40.2362 Coma scale, best motor response, obeys commands, at arrival to emergency department; R13.10 Dysphagia, unspecified; T45.515A Adverse effect of anticoagulants, initial encounter; M62.838 Other muscle spasm; E66.9 Obesity, unspecified; Z68.37 Body mass index [BMI] 37.0-37.9, adult; Z71.3 Dietary counseling and surveillance; G40.909 Epilepsy, unspecified, not intractable, without status epilepticus; Z79.01 Long term (current) use of anticoagulants; Z79.899 Other long term (current) drug therapy; Z87.891 Personal history of nicotine dependence; Z87.440 Personal history of urinary (tract) infections; Z90.49 Acquired absence of other specified parts of digestive tract; Z90.710 Acquired absence of both cervix and uterus; Z87.442 Personal history of urinary calculi; Z99.3 Dependence on wheelchair; Z74.01 Bed confinement status; Z87.01 Personal history of pneumonia (recurrent); Z88.6 Allergy status to analgesic agent; Z88.1 Allergy status to other antibiotic agents; Z88.5 Allergy status to narcotic agent; Z88.8 Allergy status to other drugs, medicaments and biological substances
CPT/HCPCS: 36415; 70450; 71045; 80048; 80053; 80164; 81001; 83036; 84100; 84439; 84443; 84450; 84460; 85025; 85610; 85730; 87040; 87077; 87086; 87186; 93306; 94760; 95816; 96361; 96365; 99285